=== PATIENT | female | born 1965 | race Caucasian/White ===

== ENCOUNTER 2016-12-08 13:19 | Emergency (ER) | payer OTHER ==
[~2016-12-08 13:19] MED LIST: LEVOTHYROXIN0.125 MG PO; LEVOTHYROXINE0.15 MG PO; NORCO; SYN125 PO; VAL10 PO
[2016-12-08 15:37] LABS: CALCIUM 8.9 mg/dL (8.5-10.1); CARBON DIOXIDE 24.7 mmol/L (21-32); CHLORIDE SERUM 104 mmol/L (98-107); CREATININE SERUM 0.9 mg/dL (0.6-1.0); GFR1 > 60 mL/min; GLUCOSE SERUM 99 mg/dL (74-106); MAGNESIUM 1.8 mg/dL (1.8-2.4); POTASSIUM SERUM 4.2 mmol/L (3.5-5.1); SODIUM SERUM 138 mmol/L (136-145)
[2016-12-08 16:07] VITALS: BP 122/58
== END 2016-12-08 16:07 | disposition home or self-care (01) ==
LOC: ED 13:19
PROVIDERS: Emergency Medicine
DX: G25.81 Restless legs syndrome (principal); M79.7 Fibromyalgia; K21.9 Gastro-esophageal reflux disease without esophagitis; E03.9 Hypothyroidism, unspecified; E78.5 Hyperlipidemia, unspecified; F41.9 Anxiety disorder, unspecified; Z79.899 Other long term (current) drug therapy; Z88.2 Allergy status to sulfonamides

== ENCOUNTER 2016-12-08 20:07 | Emergency (ER) | payer OTHER ==
[2016-12-08 21:12] VITALS: BP 135/91
== END 2016-12-08 21:55 | disposition home or self-care (01) ==
LOC: ED 20:07
DX: G25.81 Restless legs syndrome (principal); G89.4 Chronic pain syndrome; Z79.899 Other long term (current) drug therapy; Z88.2 Allergy status to sulfonamides; Z88.8 Allergy status to other drugs, medicaments and biological substances
CPT/HCPCS: J1200; J1885; Q0162

== ENCOUNTER 2017-05-06 16:06 | Emergency (ER) | payer OTHER ==
[2017-05-06 17:23] LABS: BASOPHIL % 0.7 % (0-2); PLATELET COUNT 233 x10^3mcL (130-400); RED CELL DISTRIBUTION WIDTH 12.8 % (11.5-14.5)
[2017-05-06 17:28] LABS: CALCIUM 9.4 mg/dL (8.5-10.1); CARBON DIOXIDE 29.1 mmol/L (21-32); CREATININE SERUM 1.1 mg/dL (0.6-1.0)
[2017-05-06 17:32] LABS: ALBUMIN 4.2 g/dL (3.4-5.0); BILIRUBIN TOTAL 1.4 mg/dL (0.20-1.00)
[2017-05-06 19:43] VITALS: BP 111/78
== END 2017-05-06 19:43 | disposition home or self-care (01) ==
LOC: ED 16:06
PROVIDERS: Emergency Medicine
DX: E86.0 Dehydration (principal); R07.89 Other chest pain; R06.02 Shortness of breath; J44.9 Chronic obstructive pulmonary disease, unspecified; M54.30 Sciatica, unspecified side; E03.9 Hypothyroidism, unspecified; F32.9 Major depressive disorder, single episode, unspecified; Z88.2 Allergy status to sulfonamides; Z88.8 Allergy status to other drugs, medicaments and biological substances
CPT/HCPCS: 83880; J2405; J3490; J7030

== ENCOUNTER 2017-10-18 03:37 | Emergency (ER) | payer OTHER ==
[2017-10-18 04:45] LABS: BASOPHIL % 0.5 % (0-2); PLATELET COUNT 183 x10^3mcL (130-400); RED CELL DISTRIBUTION WIDTH 13.1 % (11.5-14.5)
[2017-10-18 04:52] LABS: CALCIUM 9.4 mg/dL (8.5-10.1); CARBON DIOXIDE 30.6 mmol/L (21-32); CHLORIDE SERUM 94 mmol/L (98-107); CREATININE SERUM 1.3 mg/dL (0.6-1.0); GFR1 46 mL/min; GLUCOSE SERUM 115 mg/dL (74-106); POTASSIUM SERUM 3.9 mmol/L (3.5-5.1); SODIUM SERUM 133 mmol/L (136-145)
[2017-10-18 05:08] LABS: ALBUMIN 3.9 g/dL (3.4-5.0); ALKALINE PHOSPHATASE 82 U/L (46-116); ALT/SGPT 46 U/L (14-59); AST/SGOT 62 U/L (15-37); BILIRUBIN TOTAL 1.71 mg/dL (0.20-1.00); LIPASE 268 IU/L (73-393)
[2017-10-18 05:10] LABS: TOTAL PROTEIN, SERUM 8.7 g/dL (6.4-8.2)
[2017-10-18 07:50] VITALS: BP 122/78
== END 2017-10-18 07:51 | disposition home or self-care (01) ==
LOC: ED 03:37
PROVIDERS: Emergency Medicine
DX: R25.2 Cramp and spasm (principal); J44.9 Chronic obstructive pulmonary disease, unspecified; E78.00 Pure hypercholesterolemia, unspecified; Z88.2 Allergy status to sulfonamides; Z88.8 Allergy status to other drugs, medicaments and biological substances
CPT/HCPCS: 83880; G0480; J2270; J3010

== ENCOUNTER 2017-10-18 19:27 | Emergency (ER) | payer OTHER ==
[~2017-10-18] VITALS: Ht 160 cm; Wt 63.5 kg
[2017-10-18 19:33] VITALS: BP 147/90
== END 2017-10-18 20:49 | disposition home or self-care (01) ==
LOC: ED 19:27
DX: G89.29 Other chronic pain (principal); M54.9 Dorsalgia, unspecified
CPT/HCPCS: J1885

== ENCOUNTER 2017-11-19 12:16 | Inpatient (IN) | payer OTHER ==
[~2017-11-19] VITALS: Ht 160 cm; Wt 64.1 kg
[2017-11-19 12:40] LABS: PLATELET COUNT 229 x10^3mcL (130-400); RED CELL DISTRIBUTION WIDTH 12.9 % (11.5-14.5)
[2017-11-19 12:54] LABS: CALCIUM 9.8 mg/dL (8.5-10.1); CARBON DIOXIDE 30.8 mmol/L (21-32); CREATININE SERUM 1.6 mg/dL (0.6-1.0)
[2017-11-19 13:06] LABS: ALBUMIN 4.5 g/dL (3.4-5.0); BILIRUBIN TOTAL 1.09 mg/dL (0.20-1.00)
[2017-11-19 13:11] LABS: TOTAL PROTEIN, SERUM 9.4 g/dL (6.4-8.2)
[2017-11-19 13:12] LABS: T4(THYROXINE) 1.1 ug/dL (4.7-13.3)
[2017-11-19 13:28] LABS: AMPHETAMINE QUAL UR NONE DETECTED (NEG <=1000)
[2017-11-19 14:37] LABS: UA SPECIFIC GRAVITY 1.025 (1.005-1.035); microscopic required? YES; urine erythrocyte NEGATIVE (NEGATIVE)
[2017-11-19 16:33] LABS: T3 TOTAL 0.41 ng/mL
[2017-11-19 16:44] VITALS: BP 104/61
[2017-11-19 16:48] LABS: CHOLESTEROL/HDL RATIO 6.3; MAGNESIUM 1.7 mg/dL (1.8-2.4); PHOSPHOROUS 2.6 mg/dL (2.5-4.9)
[2017-11-19 16:58] LABS: FREE T4 0.23 ng/dL (0.76-1.46)
[2017-11-19 17:04] LABS: FREE THYROXINE INDEX 0.5 ug/dL (1.4-4.5); T4(THYROXINE) 1.9 ug/dL (4.7-13.3)
[2017-11-19] MEDS ORDERED: NOR10T PO (17:33)
[2017-11-19] MEDS ORDERED: SYNTHROID0.112 MG PO (17:35)
[2017-11-19 20:55] VITALS: BP 104/60
[2017-11-20 04:51] VITALS: BP 140/53
[2017-11-20 05:54] VITALS: BP 92/53
[2017-11-20 06:41] LABS: BASOPHIL % 0.5 % (0-2); PLATELET COUNT 163 x10^3mcL (130-400); RED CELL DISTRIBUTION WIDTH 13.1 % (11.5-14.5)
[2017-11-20 06:43] LABS: CALCIUM 7.9 mg/dL (8.5-10.1); CARBON DIOXIDE 26.1 mmol/L (21-32); CREATININE SERUM 1.4 mg/dL (0.6-1.0); MAGNESIUM 2.2 mg/dL (1.8-2.4); POTASSIUM SERUM 5.5 mmol/L (3.5-5.1)
[2017-11-20 09:06] VITALS: BP 83/47
[2017-11-20 13:47] VITALS: BP 85/46
[2017-11-20 17:17] VITALS: BP 90/50
[2017-11-20 18:42] LABS: CALCIUM 7.6 mg/dL (8.5-10.1); CARBON DIOXIDE 25.2 mmol/L (21-32); CREATININE SERUM 1.4 mg/dL (0.6-1.0); POTASSIUM SERUM 4.4 mmol/L (3.5-5.1)
[2017-11-20 20:35] VITALS: BP 95/60
[2017-11-21 05:06] VITALS: BP 94/52
[2017-11-21 06:08] LABS: BASOPHIL % 0.8 % (0-2); PLATELET COUNT 149 x10^3mcL (130-400); RED CELL DISTRIBUTION WIDTH 13.1 % (11.5-14.5)
[2017-11-21 06:34] LABS: CALCIUM 7.9 mg/dL (8.5-10.1); CARBON DIOXIDE 25.4 mmol/L (21-32); CREATININE SERUM 1.2 mg/dL (0.6-1.0); POTASSIUM SERUM 4.4 mmol/L (3.5-5.1)
[2017-11-21 09:04] VITALS: Ht 160 cm; Wt 64.1 kg
[2017-11-21 09:39] VITALS: BP 93/48
[2017-11-21] MEDS ORDERED: MAC100 PO (10:05)
[2017-11-21] MEDS ORDERED: GOOD SENSE ASPI81 M3 PO (10:05)
[2017-11-21] MEDS ORDERED: BD LACTINEX1.4 MG PO (10:05)
[2017-11-21] MEDS ORDERED: COLACE100 MG PO (10:21)
[2017-11-21 13:34] VITALS: BP 93/48
== END 2017-11-21 15:45 | disposition home or self-care (01) | DRG 463 ==
LOC: ED 12:16 → DU 15:51 → MU 11-20 22:39
PROVIDERS: Emergency Medicine; Family Medicine
DX: N39.0 Urinary tract infection, site not specified (principal); N17.0 Acute kidney failure with tubular necrosis; E87.1 Hypo-osmolality and hyponatremia; F32.9 Major depressive disorder, single episode, unspecified; J44.9 Chronic obstructive pulmonary disease, unspecified; F41.9 Anxiety disorder, unspecified; E03.9 Hypothyroidism, unspecified; E78.5 Hyperlipidemia, unspecified; M54.32 Sciatica, left side; M54.31 Sciatica, right side; K80.20 Calculus of gallbladder without cholecystitis without obstruction; Z88.8 Allergy status to other drugs, medicaments and biological substances; Z88.2 Allergy status to sulfonamides
CPT/HCPCS: 82962; 83880; 84439; 97110-GP; 97116-GP; 97530-GP; J0696; J2405; J2765; J3475; J7030; Q0092

== ENCOUNTER 2017-12-12 10:01 | Inpatient (IN) | payer OTHER ==
[~2017-12-12] VITALS: Ht 160 cm; Wt 64.6 kg
[~2017-12-12 10:01] MED LIST changes: +BD LACTINEX1.4 MG PO; +COLACE100 MG PO; +GOOD SENSE ASPI81 M3 PO; +MAC100 PO; +NOR10T PO; +SYNTHROID0.112 MG PO
[2017-12-12 10:10] VITALS: Ht 160 cm; Wt 64.6 kg
[2017-12-12 10:48] LABS: BASOPHIL % 1.4 % (0-2); PLATELET COUNT 234 x10^3mcL (130-400); RED CELL DISTRIBUTION WIDTH 12.8 % (11.5-14.5)
[2017-12-12 11:13] LABS: ALBUMIN 4.2 g/dL (3.4-5.0); BILIRUBIN TOTAL 0.91 mg/dL (0.20-1.00); CALCIUM 10.2 mg/dL (8.5-10.1); CARBON DIOXIDE 27.9 mmol/L (21-32); CREATININE SERUM 1.3 mg/dL (0.6-1.0)
[2017-12-12 11:21] LABS: microscopic required? YES; urine erythrocyte NEGATIVE (NEGATIVE)
[2017-12-12 11:59] LABS: TOTAL PROTEIN, SERUM 9.3 g/dL (6.4-8.2)
[2017-12-12 12:00] LABS: POTASSIUM SERUM 6.2 mmol/L (3.5-5.1)
[2017-12-12 13:46] VITALS: BP 96/74
[2017-12-12 15:33] LABS: AMPHETAMINE QUAL UR NONE DETECTED (NEG <=1000)
[2017-12-12 15:57] LABS: CALCIUM 8.3 mg/dL (8.5-10.1); CARBON DIOXIDE 26.2 mmol/L (21-32); CREATININE SERUM 1.2 mg/dL (0.6-1.0)
[2017-12-12 16:11] LABS: POTASSIUM SERUM 6.2 mmol/L (3.5-5.1)
[2017-12-12 16:19] LABS: MAGNESIUM 1.9 mg/dL (1.8-2.4); PHOSPHOROUS 3.6 mg/dL (2.5-4.9)
[2017-12-12 16:20] LABS: CHOLESTEROL/HDL RATIO 4.8
[2017-12-12 16:52] LABS: T3 TOTAL 1.32 ng/mL
[2017-12-12 16:57] LABS: FREE T4 1.22 ng/dL (0.76-1.46); FREE THYROXINE INDEX 3.5 ug/dL (1.4-4.5); T4(THYROXINE) 10.8 ug/dL (4.7-13.3)
[2017-12-12 18:00] VITALS: BP 102/69
[2017-12-12 21:44] LABS: CALCIUM 8.3 mg/dL (8.5-10.1); CARBON DIOXIDE 23.6 mmol/L (21-32); CREATININE SERUM 1.5 mg/dL (0.6-1.0); POTASSIUM SERUM 4.7 mmol/L (3.5-5.1)
[2017-12-12 21:48] VITALS: BP 106/56
[2017-12-13 05:07] VITALS: BP 112/70
[2017-12-13 07:58] LABS: CALCIUM 7.5 mg/dL (8.5-10.1); CARBON DIOXIDE 25.1 mmol/L (21-32); CREATININE SERUM 1.4 mg/dL (0.6-1.0); POTASSIUM SERUM 3.8 mmol/L (3.5-5.1)
[2017-12-13 08:07] LABS: BASOPHIL % 0.5 % (0-2); PLATELET COUNT 169 x10^3mcL (130-400)
[2017-12-13 09:58] VITALS: BP 106/63
[2017-12-13 13:19] VITALS: BP 153/63
[2017-12-13 18:00] VITALS: BP 112/62
[2017-12-13 18:58] LABS: CALCIUM 7.5 mg/dL (8.5-10.1); CARBON DIOXIDE 26.5 mmol/L (21-32); CREATININE SERUM 1.5 mg/dL (0.6-1.0); POTASSIUM SERUM 3.6 mmol/L (3.5-5.1)
[2017-12-13 20:58] VITALS: BP 97/44
[2017-12-13 21:55] VITALS: BP 115/65
[2017-12-14 04:56] VITALS: BP 93/43
[2017-12-14 07:29] LABS: BASOPHIL % 0.7 % (0-2); PLATELET COUNT 148 x10^3mcL (130-400); RED CELL DISTRIBUTION WIDTH 12.9 % (11.5-14.5)
[2017-12-14 07:59] LABS: CALCIUM 7.2 mg/dL (8.5-10.1); CARBON DIOXIDE 23.7 mmol/L (21-32); CREATININE SERUM 1.3 mg/dL (0.6-1.0); MAGNESIUM 1.7 mg/dL (1.8-2.4); PHOSPHOROUS 2.1 mg/dL (2.5-4.9); POTASSIUM SERUM 4.2 mmol/L (3.5-5.1)
[2017-12-14 10:29] VITALS: BP 91/55
[2017-12-14 12:18] VITALS: BP 87/45
[2017-12-14] MEDS ORDERED: LEVAQUIN750 MG PO (15:48)
[2017-12-14] MEDS ORDERED: REGLAN10 M1 PO (15:50)
[2017-12-14] MEDS ORDERED: LIPI10 PO (15:51)
[2017-12-14 16:18] VITALS: BP 91/42
== END 2017-12-14 17:00 | disposition home or self-care (01) | DRG 463 ==
LOC: ED 10:01 → DU 12:28
PROVIDERS: Emergency Medicine; Family Medicine
DX: N39.0 Urinary tract infection, site not specified (principal); N17.0 Acute kidney failure with tubular necrosis; E87.1 Hypo-osmolality and hyponatremia; E87.5 Hyperkalemia; E83.51 Hypocalcemia; E83.39 Other disorders of phosphorus metabolism; E83.42 Hypomagnesemia; E03.9 Hypothyroidism, unspecified; E78.5 Hyperlipidemia, unspecified; M54.32 Sciatica, left side; M54.31 Sciatica, right side; F41.9 Anxiety disorder, unspecified; D64.9 Anemia, unspecified; E66.3 Overweight; Z68.25 Body mass index [BMI] 25.0-25.9, adult; Z79.82 Long term (current) use of aspirin
CPT/HCPCS: 83880; 84439; 87491; 87591; J0696; J1720; J2405; J2550; J2765; J3490; J7030; J8597; Q0162

== ENCOUNTER 2018-01-13 03:11 | Emergency (ER) | payer OTHER ==
[~2018-01-13] VITALS: Ht 160 cm; Wt 63.5 kg
[~2018-01-13 03:11] MED LIST changes: +LEVAQUIN750 MG PO; +LIPI10 PO; +REGLAN10 M1 PO
[2018-01-13 03:20] VITALS: Ht 160 cm; Wt 63.5 kg
[2018-01-13 05:04] VITALS: BP 120/79
== END 2018-01-13 05:04 | disposition home or self-care (01) ==
LOC: ED 03:11
DX: N12 Tubulo-interstitial nephritis, not specified as acute or chronic (principal); Z88.2 Allergy status to sulfonamides; Z88.8 Allergy status to other drugs, medicaments and biological substances
CPT/HCPCS: J0696; J1885

== ENCOUNTER 2018-01-26 10:30 | Inpatient (IN) | payer OTHER ==
[~2018-01-26] VITALS: Ht 160 cm; Wt 62.2 kg
[2018-01-26 10:42] VITALS: Ht 160 cm; Wt 62.2 kg
[2018-01-26 11:25] LABS: BASOPHIL % 0.8 % (0-2); PLATELET COUNT 323 x10^3mcL (130-400); RED CELL DISTRIBUTION WIDTH 12.5 % (11.5-14.5)
[2018-01-26 11:32] LABS: CARBON DIOXIDE 25.1 mmol/L (21-32); CREATININE SERUM 2.4 mg/dL (0.6-1.0); POTASSIUM SERUM 4.6 mmol/L (3.5-5.1)
[2018-01-26 11:36] LABS: ALBUMIN 3.5 g/dL (3.4-5.0); BILIRUBIN TOTAL 0.47 mg/dL (0.20-1.00)
[2018-01-26 11:37] LABS: TOTAL PROTEIN, SERUM 8.4 g/dL (6.4-8.2)
[2018-01-26 11:41] LABS: UA SPECIFIC GRAVITY 1.025 (1.005-1.035); microscopic required? YES; urine erythrocyte 1+ (NEGATIVE)
[2018-01-26 13:15] LABS: MAGNESIUM 1.7 mg/dL (1.8-2.4); PHOSPHOROUS 5.7 mg/dL (2.5-4.9)
[2018-01-26 13:16] LABS: AMPHETAMINE QUAL UR NONE DETECTED (See below)
[2018-01-26 13:16] LABS: T3 TOTAL 0.73 ng/mL
[2018-01-26 13:19] LABS: CHOLESTEROL/HDL RATIO 10.6
[2018-01-26 14:01] LABS: FREE T4 0.51 ng/dL (0.76-1.46); FREE THYROXINE INDEX 1.4 ug/dL (1.4-4.5); T4(THYROXINE) 5.1 ug/dL (4.7-13.3)
[2018-01-26 14:27] VITALS: BP 89/53
[2018-01-26 16:02] VITALS: BP 94/58
[2018-01-26 17:30] VITALS: BP 94/58
[2018-01-26 17:56] LABS: CALCIUM 8.1 mg/dL (8.5-10.1); CARBON DIOXIDE 24.2 mmol/L (21-32); CREATININE SERUM 1.6 mg/dL (0.6-1.0)
[2018-01-26 18:07] LABS: POTASSIUM SERUM 5.7 mmol/L (3.5-5.1)
[2018-01-26 18:51] LABS: CALCIUM 8.1 mg/dL (8.5-10.1); CARBON DIOXIDE 24.7 mmol/L (21-32); CREATININE SERUM 1.6 mg/dL (0.6-1.0); POTASSIUM SERUM 5.3 mmol/L (3.5-5.1)
[2018-01-26 22:01] VITALS: BP 91/45
[2018-01-27 06:02] VITALS: BP 99/55
[2018-01-27 06:39] LABS: PLATELET COUNT 262 x10^3mcL (130-400); RED CELL DISTRIBUTION WIDTH 12.9 % (11.5-14.5)
[2018-01-27 06:50] LABS: CALCIUM 7.9 mg/dL (8.5-10.1); CREATININE SERUM 1.4 mg/dL (0.6-1.0); PHOSPHOROUS 3.1 mg/dL (2.5-4.9)
[2018-01-27 06:57] LABS: POTASSIUM SERUM 5.6 mmol/L (3.5-5.1)
[2018-01-27 12:58] VITALS: BP 89/52
[2018-01-27 15:09] LABS: CALCIUM 7.8 mg/dL (8.5-10.1); CARBON DIOXIDE 24.5 mmol/L (21-32); CREATININE SERUM 1.4 mg/dL (0.6-1.0); POTASSIUM SERUM 4.8 mmol/L (3.5-5.1)
[2018-01-27 16:32] VITALS: BP 90/37
[2018-01-27 21:23] VITALS: BP 115/57
[2018-01-28 05:57] VITALS: BP 94/51
[2018-01-28 06:51] LABS: CALCIUM 8.4 mg/dL (8.5-10.1); CARBON DIOXIDE 24.9 mmol/L (21-32); CREATININE SERUM 1.2 mg/dL (0.6-1.0); MAGNESIUM 1.4 mg/dL (1.8-2.4); PHOSPHOROUS 2.2 mg/dL (2.5-4.9); POTASSIUM SERUM 5.1 mmol/L (3.5-5.1)
[2018-01-28 07:13] LABS: BASOPHIL % 0.9 % (0-2); PLATELET COUNT 200 x10^3mcL (130-400); RED CELL DISTRIBUTION WIDTH 12.6 % (11.5-14.5)
[2018-01-28] MEDS ORDERED: LEVOFLOXACIN500 M1 PO (08:50)
[2018-01-28] MEDS ORDERED: LAC PO (08:50)
[2018-01-28 09:11] VITALS: BP 103/50
[2018-01-28 12:52] VITALS: BP 109/63
[2018-01-28 14:52] VITALS: BP 109/63
== END 2018-01-28 15:29 | disposition home or self-care (01) | DRG 720 ==
LOC: ED 10:30 → DU 11:23
PROVIDERS: Emergency Medicine; Family Medicine; Family Medicine Sports Medicine
DX: A41.9 Sepsis, unspecified organism (principal); N17.0 Acute kidney failure with tubular necrosis; R65.21 Severe sepsis with septic shock; F32.9 Major depressive disorder, single episode, unspecified; E03.9 Hypothyroidism, unspecified; E78.00 Pure hypercholesterolemia, unspecified; G89.29 Other chronic pain; N39.0 Urinary tract infection, site not specified; E87.1 Hypo-osmolality and hyponatremia; E87.5 Hyperkalemia; E78.5 Hyperlipidemia, unspecified; E83.51 Hypocalcemia; R31.9 Hematuria, unspecified; F41.1 Generalized anxiety disorder; E83.42 Hypomagnesemia; M54.40 Lumbago with sciatica, unspecified side; E87.8 Other disorders of electrolyte and fluid balance, not elsewhere classified; Z53.29 Procedure and treatment not carried out because of patient's decision for other reasons; Z88.8 Allergy status to other drugs, medicaments and biological substances; Z88.2 Allergy status to sulfonamides; Z79.899 Other long term (current) drug therapy; Z91.14 Patient's other noncompliance with medication regimen; Z98.891 History of uterine scar from previous surgery
CPT/HCPCS: 76770; 83880; 84439; C9113; J0696; J2405; J3475; J3490; J7030; Q0092

== ENCOUNTER 2018-03-04 10:07 | Inpatient (IN) | payer OTHER ==
[~2018-03-04] VITALS: Ht 160 cm; Wt 60.1 kg
[~2018-03-04 10:07] MED LIST changes: +LAC PO; +LEVOFLOXACIN500 M1 PO
[2018-03-04 11:12] LABS: BASOPHIL % 1.5 % (0-2); PLATELET COUNT 301 x10^3mcL (130-400); RED CELL DISTRIBUTION WIDTH 13.5 % (11.5-14.5)
[2018-03-04 11:18] LABS: CALCIUM 10.6 mg/dL (8.5-10.1); CREATININE SERUM 3.6 mg/dL (0.6-1.0); POTASSIUM SERUM 4.5 mmol/L (3.5-5.1)
[2018-03-04 11:22] LABS: ALBUMIN 4.1 g/dL (3.4-5.0); BILIRUBIN TOTAL 0.89 mg/dL (0.20-1.00); TOTAL PROTEIN, SERUM 9.3 g/dL (6.4-8.2)
[2018-03-04 11:33] LABS: FREE T4 1.45 ng/dL (0.76-1.46); FREE THYROXINE INDEX 3.7 ug/dL (1.4-4.5)
[2018-03-04 11:34] LABS: T3 TOTAL 1.18 ng/mL
[2018-03-04 13:55] VITALS: BP 116/55
[2018-03-04 14:05] VITALS: Ht 160 cm; Wt 60.1 kg
[2018-03-04 14:43] LABS: MAGNESIUM 1.8 mg/dL (1.8-2.4); PHOSPHOROUS 6.3 mg/dL (2.5-4.9)
[2018-03-04 14:45] LABS: CHOLESTEROL/HDL RATIO 5.2
[2018-03-04 15:57] VITALS: BP 112/68
[2018-03-04 19:26] LABS: CALCIUM 8.4 mg/dL (8.5-10.1); CARBON DIOXIDE 24.3 mmol/L (21-32); POTASSIUM SERUM 4.4 mmol/L (3.5-5.1)
[2018-03-04 22:31] VITALS: BP 83/43
[2018-03-05 05:34] VITALS: BP 106/45
[2018-03-05 07:13] LABS: microscopic required? NO
[2018-03-05 08:01] LABS: BASOPHIL % 0.7 % (0-2); PLATELET COUNT 210 x10^3mcL (130-400); RED CELL DISTRIBUTION WIDTH 13.6 % (11.5-14.5)
[2018-03-05 08:13] LABS: CALCIUM 8.4 mg/dL (8.5-10.1); CARBON DIOXIDE 20.4 mmol/L (21-32); CREATININE SERUM 2.2 mg/dL (0.6-1.0); MAGNESIUM 1.5 mg/dL (1.8-2.4); POTASSIUM SERUM 5.2 mmol/L (3.5-5.1)
[2018-03-05 08:41] VITALS: BP 99/46
[2018-03-05 09:15] LABS: urine erythrocyte NEGATIVE (NEGATIVE)
[2018-03-05 09:39] LABS: AMPHETAMINE QUAL UR NONE DETECTED (See below)
[2018-03-05 12:50] VITALS: BP 88/49
[2018-03-05 15:52] VITALS: BP 89/42
[2018-03-05 17:08] VITALS: BP 118/58; BP 98/45
[2018-03-05 21:17] VITALS: BP 96/49
[2018-03-06 05:50] VITALS: BP 93/49
[2018-03-06 07:47] LABS: BASOPHIL % 0.7 % (0-2); PLATELET COUNT 181 x10^3mcL (130-400); RED CELL DISTRIBUTION WIDTH 13.5 % (11.5-14.5)
[2018-03-06 08:06] LABS: BILIRUBIN TOTAL 0.37 mg/dL (0.20-1.00); CALCIUM 8.4 mg/dL (8.5-10.1); CARBON DIOXIDE 22.1 mmol/L (21-32); CREATININE SERUM 1.4 mg/dL (0.6-1.0); MAGNESIUM 1.3 mg/dL (1.8-2.4); POTASSIUM SERUM 5.1 mmol/L (3.5-5.1); TOTAL PROTEIN, SERUM 6.2 g/dL (6.4-8.2)
[2018-03-06 08:30] LABS: ALBUMIN 2.6 g/dL (3.4-5.0)
[2018-03-06 11:07] VITALS: BP 100/42
[2018-03-06 14:58] VITALS: BP 108/42
[2018-03-06 18:47] VITALS: BP 93/33
[2018-03-06 21:06] VITALS: BP 94/42
[2018-03-07 05:13] VITALS: BP 100/48
[2018-03-07 07:22] LABS: BASOPHIL % 0.6 % (0-2); PLATELET COUNT 172 x10^3mcL (130-400); RED CELL DISTRIBUTION WIDTH 13.6 % (11.5-14.5)
[2018-03-07 07:23] LABS: CALCIUM 8.3 mg/dL (8.5-10.1); CARBON DIOXIDE 20.8 mmol/L (21-32); CREATININE SERUM 1.2 mg/dL (0.6-1.0); PHOSPHOROUS 2.7 mg/dL (2.5-4.9); POTASSIUM SERUM 4.9 mmol/L (3.5-5.1)
[2018-03-07 07:56] VITALS: BP 102/47
[2018-03-07 13:18] VITALS: BP 108/60
[2018-03-07] MEDS ORDERED: LEVAQUIN750 MG PO (15:30)
[2018-03-07] MEDS ORDERED: ZOF4 PO (15:31)
[2018-03-07 16:19] VITALS: BP 108/60
== END 2018-03-07 19:19 | disposition home or self-care (01) | DRG 720 ==
LOC: ED 10:07 → DU 11:44
PROVIDERS: Emergency Medicine; Internal Medicine
DX: A41.9 Sepsis, unspecified organism (principal); N17.0 Acute kidney failure with tubular necrosis; E87.1 Hypo-osmolality and hyponatremia; K85.90 Acute pancreatitis without necrosis or infection, unspecified; G90.9 Disorder of the autonomic nervous system, unspecified; E86.0 Dehydration; K29.70 Gastritis, unspecified, without bleeding; E03.9 Hypothyroidism, unspecified; E78.5 Hyperlipidemia, unspecified; F32.9 Major depressive disorder, single episode, unspecified; G89.29 Other chronic pain; M25.552 Pain in left hip; M25.551 Pain in right hip; F41.9 Anxiety disorder, unspecified; M54.32 Sciatica, left side; M54.31 Sciatica, right side; N12 Tubulo-interstitial nephritis, not specified as acute or chronic; K80.20 Calculus of gallbladder without cholecystitis without obstruction; Z88.2 Allergy status to sulfonamides; Z79.899 Other long term (current) drug therapy; Z87.891 Personal history of nicotine dependence; Z88.8 Allergy status to other drugs, medicaments and biological substances
CPT/HCPCS: 83880; 84439; 94150; C9113; J1956; J2405; J2765; J7030; J7040; J7620; Q0092

== ENCOUNTER 2018-06-21 10:36 | Inpatient (IN) | payer OTHER ==
[~2018-06-21] VITALS: Ht 160 cm; Wt 71.0 kg
[~2018-06-21 10:36] MED LIST changes: +ZOF4 PO
[2018-06-21 10:42] VITALS: Ht 160 cm; Wt 71.0 kg
[2018-06-21 11:36] LABS: BASOPHIL % 0.7 % (0-2); PLATELET COUNT 247 x10^3mcL (130-400)
[2018-06-21 11:48] LABS: UA SPECIFIC GRAVITY 1.025 (1.005-1.035); microscopic required? YES; urine erythrocyte NEGATIVE (NEGATIVE)
[2018-06-21 12:05] LABS: FREE T4 0.39 ng/dL (0.76-1.46); FREE THYROXINE INDEX 0.6 ug/dL (1.4-4.5); T4(THYROXINE) 2.7 ug/dL (4.7-13.3)
[2018-06-21 12:05] LABS: AMPHETAMINE QUAL UR NONE DETECTED (See below)
[2018-06-21 12:06] LABS: ALBUMIN 4.5 g/dL (3.4-5.0); BILIRUBIN TOTAL 1.26 mg/dL (0.20-1.00); CALCIUM 9.3 mg/dL (8.5-10.1); CARBON DIOXIDE 24.6 mmol/L (21-32); CREATININE SERUM 1.7 mg/dL (0.6-1.0); POTASSIUM SERUM 4.2 mmol/L (3.5-5.1)
[2018-06-21 12:08] LABS: TOTAL PROTEIN, SERUM 10.1 g/dL (6.4-8.2)
[2018-06-21] MEDS ORDERED: ASPIRIN81 MG PO (12:14)
[2018-06-21 12:23] LABS: T3 TOTAL 0.4 ng/mL
[2018-06-21 15:07] VITALS: BP 109/69
[2018-06-21 17:39] VITALS: BP 114/60
[2018-06-21 19:36] LABS: CARBON DIOXIDE 23.9 mmol/L (21-32); CREATININE SERUM 1.7 mg/dL (0.6-1.0); POTASSIUM SERUM 4.2 mmol/L (3.5-5.1)
[2018-06-21 20:47] VITALS: BP 104/64
[2018-06-21 22:05] LABS: CALCIUM 9.1 mg/dL (8.5-10.1); CARBON DIOXIDE 21.8 mmol/L (21-32); CREATININE SERUM 1.8 mg/dL (0.6-1.0); POTASSIUM SERUM 4.3 mmol/L (3.5-5.1)
[2018-06-22] VITALS (8 sets, daily range): BP systolic 82–102; BP diastolic 51–63
[2018-06-22 06:12] LABS: PLATELET COUNT 198 x10^3mcL (130-400)
[2018-06-22 07:00] LABS: CALCIUM 8.6 mg/dL (8.5-10.1); CARBON DIOXIDE 23.3 mmol/L (21-32); CREATININE SERUM 1.8 mg/dL (0.6-1.0); POTASSIUM SERUM 4.5 mmol/L (3.5-5.1)
[2018-06-22 08:11] LABS: RED CELL DISTRIBUTION WIDTH 14.6 % (11.5-14.5)
[2018-06-23 05:50] VITALS: BP 93/57
[2018-06-23 06:30] LABS: BASOPHIL % 1.1 % (0-2); PLATELET COUNT 194 x10^3mcL (130-400)
[2018-06-23 06:34] LABS: RED CELL DISTRIBUTION WIDTH 15.1 % (11.5-14.5)
[2018-06-23 06:44] LABS: CREATININE SERUM 1.7 mg/dL (0.6-1.0); POTASSIUM SERUM 5.1 mmol/L (3.5-5.1)
[2018-06-23 09:59] VITALS: BP 92/54
[2018-06-23 12:45] VITALS: BP 94/59
[2018-06-23 17:09] VITALS: BP 109/59
[2018-06-23 21:24] VITALS: BP 104/58
[2018-06-24 05:36] VITALS: BP 97/60
[2018-06-24 10:32] VITALS: BP 101/55
[2018-06-24 14:11] VITALS: BP 101/55
[2018-06-24 14:29] VITALS: BP 91/52
[2018-06-25 10:32] LABS: CK-BB 0 % (0); CK-MB 0 % (0-3); CK-MM 100 % (97-100); MACRO TYPE 1 0 % (Not Observed); MACRO TYPE 2 0 % (Not Observed)
== END 2018-06-24 15:27 | disposition home health service (06) | DRG 469 ==
LOC: ED 10:36 → DU 12:19
PROVIDERS: Emergency Medicine; Internal Medicine; Internal Medicine Nephrology
DX: N17.9 Acute kidney failure, unspecified (principal); M62.82 Rhabdomyolysis; I95.9 Hypotension, unspecified; E22.2 Syndrome of inappropriate secretion of antidiuretic hormone; D75.1 Secondary polycythemia; E86.0 Dehydration; K52.9 Noninfective gastroenteritis and colitis, unspecified; K80.80 Other cholelithiasis without obstruction; N39.0 Urinary tract infection, site not specified; E03.9 Hypothyroidism, unspecified; F41.8 Other specified anxiety disorders; F17.210 Nicotine dependence, cigarettes, uncomplicated; F32.9 Major depressive disorder, single episode, unspecified; G89.29 Other chronic pain; M25.552 Pain in left hip; M25.551 Pain in right hip; N18.9 Chronic kidney disease, unspecified; F41.9 Anxiety disorder, unspecified; Z88.2 Allergy status to sulfonamides; Z88.8 Allergy status to other drugs, medicaments and biological substances
CPT/HCPCS: 84439; 97110-GP; 97112-GP; 97116-GP; 97530-GP; J1956; J2270; J2405; J3490; J7030; J7040; Q0092

== ENCOUNTER 2018-06-30 14:49 | Inpatient (IN) | payer OTHER ==
[~2018-06-30] VITALS: Ht 160 cm; Wt 64.4 kg
[~2018-06-30 14:49] MED LIST changes: +ASPIRIN81 MG PO
[2018-06-30 14:55] VITALS: Ht 160 cm; Wt 64.4 kg
[2018-06-30 15:34] LABS: BASOPHIL % 0.7 % (0-2); PLATELET COUNT 254 x10^3mcL (130-400)
[2018-06-30 15:38] LABS: RED CELL DISTRIBUTION WIDTH 14.6 % (11.5-14.5)
[2018-06-30 15:55] LABS: UA SPECIFIC GRAVITY 1.025 (1.005-1.035); microscopic required? YES; urine erythrocyte 2+ (NEGATIVE)
[2018-06-30 16:04] LABS: ALBUMIN 4.8 g/dL (3.4-5.0); BILIRUBIN TOTAL 1.3 mg/dL (0.20-1.00); CALCIUM 9.6 mg/dL (8.5-10.1); CARBON DIOXIDE 25.3 mmol/L (21-32); CREATININE SERUM 1.7 mg/dL (0.6-1.0); POTASSIUM SERUM 4.9 mmol/L (3.5-5.1)
[2018-06-30 16:06] LABS: TOTAL PROTEIN, SERUM 9.9 g/dL (6.4-8.2)
[2018-06-30 16:12] LABS: AMPHETAMINE QUAL UR NONE DETECTED (See below)
[2018-06-30 18:34] VITALS: BP 128/69
[2018-06-30 20:23] VITALS: BP 104/63
[2018-07-01 00:39] LABS: CALCIUM 8.4 mg/dL (8.5-10.1); CREATININE SERUM 1.5 mg/dL (0.6-1.0); POTASSIUM SERUM 4.5 mmol/L (3.5-5.1)
[2018-07-01 05:44] VITALS: BP 105/64
[2018-07-01 06:05] LABS: BASOPHIL % 0.8 % (0-2); PLATELET COUNT 227 x10^3mcL (130-400)
[2018-07-01 06:45] LABS: CALCIUM 8.1 mg/dL (8.5-10.1); CARBON DIOXIDE 24.3 mmol/L (21-32); CREATININE SERUM 1.5 mg/dL (0.6-1.0); POTASSIUM SERUM 4.9 mmol/L (3.5-5.1)
[2018-07-01 09:01] LABS: RED CELL DISTRIBUTION WIDTH 14.7 % (11.5-14.5)
[2018-07-01 09:15] VITALS: BP 93/60
[2018-07-01 10:44] LABS: CALCIUM 9.3 mg/dL (8.5-10.1); CARBON DIOXIDE 25.7 mmol/L (21-32); CREATININE SERUM 1.5 mg/dL (0.6-1.0); POTASSIUM SERUM 4.7 mmol/L (3.5-5.1)
[2018-07-01 12:00] VITALS: BP 108/66
[2018-07-01 13:26] LABS: CALCIUM 8.9 mg/dL (8.5-10.1); CREATININE SERUM 1.5 mg/dL (0.6-1.0); POTASSIUM SERUM 4.9 mmol/L (3.5-5.1)
[2018-07-01 17:14] VITALS: BP 101/55
[2018-07-01 17:30] VITALS: BP 92/50
[2018-07-01 17:33] LABS: CALCIUM 8.6 mg/dL (8.5-10.1); CARBON DIOXIDE 25.6 mmol/L (21-32); CREATININE SERUM 1.7 mg/dL (0.6-1.0); POTASSIUM SERUM 5.3 mmol/L (3.5-5.1)
[2018-07-01 20:21] LABS: CALCIUM 9.3 mg/dL (8.5-10.1); CARBON DIOXIDE 25.7 mmol/L (21-32); CREATININE SERUM 1.8 mg/dL (0.6-1.0); POTASSIUM SERUM 5.3 mmol/L (3.5-5.1)
[2018-07-01 20:55] VITALS: BP 91/56
[2018-07-02 01:05] LABS: CALCIUM 8.6 mg/dL (8.5-10.1); CARBON DIOXIDE 24.6 mmol/L (21-32); CREATININE SERUM 1.8 mg/dL (0.6-1.0); POTASSIUM SERUM 4.9 mmol/L (3.5-5.1)
[2018-07-02 05:26] VITALS: BP 100/57
[2018-07-02 05:32] LABS: CALCIUM 8.5 mg/dL (8.5-10.1); CARBON DIOXIDE 25.8 mmol/L (21-32); CREATININE SERUM 1.7 mg/dL (0.6-1.0); POTASSIUM SERUM 5.1 mmol/L (3.5-5.1)
[2018-07-02 09:20] VITALS: BP 95/55
[2018-07-02 09:49] LABS: CALCIUM 9.4 mg/dL (8.5-10.1); CREATININE SERUM 1.8 mg/dL (0.6-1.0); POTASSIUM SERUM 4.7 mmol/L (3.5-5.1)
[2018-07-02 13:10] VITALS: BP 91/55
[2018-07-02 16:31] LABS: CALCIUM 8.7 mg/dL (8.5-10.1); CARBON DIOXIDE 24.9 mmol/L (21-32); CREATININE SERUM 1.8 mg/dL (0.6-1.0); POTASSIUM SERUM 4.7 mmol/L (3.5-5.1)
[2018-07-02 16:47] LABS: FREE T4 0.7 ng/dL (0.76-1.46)
[2018-07-02 17:00] VITALS: BP 84/54
[2018-07-02 20:53] VITALS: BP 90/52
[2018-07-02 22:04] LABS: CALCIUM 9.3 mg/dL (8.5-10.1); CARBON DIOXIDE 23.8 mmol/L (21-32); CREATININE SERUM 1.7 mg/dL (0.6-1.0); POTASSIUM SERUM 4.4 mmol/L (3.5-5.1)
[2018-07-03 05:56] VITALS: BP 102/53
[2018-07-03 06:33] LABS: CARBON DIOXIDE 26.7 mmol/L (21-32); CREATININE SERUM 1.7 mg/dL (0.6-1.0)
[2018-07-03 06:40] LABS: PLATELET COUNT 183 x10^3mcL (130-400); RED CELL DISTRIBUTION WIDTH 14.9 % (11.5-14.5)
[2018-07-03 09:15] VITALS: BP 85/59
[2018-07-03 14:11] VITALS: BP 98/52
[2018-07-03 14:17] LABS: CALCIUM 9.9 mg/dL (8.5-10.1); CARBON DIOXIDE 26.9 mmol/L (21-32); CREATININE SERUM 1.6 mg/dL (0.6-1.0); POTASSIUM SERUM 4.9 mmol/L (3.5-5.1)
[2018-07-03 17:30] VITALS: BP 91/54
[2018-07-03 20:09] VITALS: BP 98/52
[2018-07-03 21:40] LABS: CALCIUM 9.2 mg/dL (8.5-10.1); CARBON DIOXIDE 27.1 mmol/L (21-32); CREATININE SERUM 1.7 mg/dL (0.6-1.0); POTASSIUM SERUM 5.2 mmol/L (3.5-5.1)
[2018-07-04 03:03] LABS: BASOPHIL % 0.8 % (0-2); PLATELET COUNT 200 x10^3mcL (130-400)
[2018-07-04 03:06] LABS: RED CELL DISTRIBUTION WIDTH 15.1 % (11.5-14.5)
[2018-07-04 03:35] LABS: CALCIUM 8.9 mg/dL (8.5-10.1); CARBON DIOXIDE 29.3 mmol/L (21-32); CREATININE SERUM 1.7 mg/dL (0.6-1.0)
[2018-07-04 03:37] LABS: POTASSIUM SERUM 6.1 mmol/L (3.5-5.1)
[2018-07-04 04:51] VITALS: BP 99/56
[2018-07-04 06:52] LABS: CK-BB 0 % (0); CK-MB 0 % (0-3); CK-MM 100 % (97-100); MACRO TYPE 1 0 % (Not Observed); MACRO TYPE 2 0 % (Not Observed)
[2018-07-04 08:10] VITALS: BP 85/50
[2018-07-04 08:44] VITALS: BP 94/54
[2018-07-04 09:18] LABS: CALCIUM 9.2 mg/dL (8.5-10.1); CARBON DIOXIDE 29.2 mmol/L (21-32); CREATININE SERUM 1.7 mg/dL (0.6-1.0)
[2018-07-04 11:40] VITALS: BP 94/54
== END 2018-07-04 12:35 | disposition home health service (06) | DRG 469 ==
LOC: ED 14:49 → DU 17:38
PROVIDERS: Emergency Medicine; Internal Medicine
DX: N17.9 Acute kidney failure, unspecified (principal); M62.82 Rhabdomyolysis; E22.2 Syndrome of inappropriate secretion of antidiuretic hormone; F11.20 Opioid dependence, uncomplicated; N39.0 Urinary tract infection, site not specified; E03.9 Hypothyroidism, unspecified; M54.5 Low back pain; F41.9 Anxiety disorder, unspecified; F32.9 Major depressive disorder, single episode, unspecified; E78.00 Pure hypercholesterolemia, unspecified; G89.29 Other chronic pain; E78.5 Hyperlipidemia, unspecified; I12.9 Hypertensive chronic kidney disease with stage 1 through stage 4 chronic kidney disease, or unspecified chronic kidney disease; N18.9 Chronic kidney disease, unspecified; Z88.2 Allergy status to sulfonamides; Z88.8 Allergy status to other drugs, medicaments and biological substances
CPT/HCPCS: 82962; 84439; 87804; 97110-GP; 97116-GP; 97530-GP; J0610; J1956; J2405; J3490; J7030; J7070

== ENCOUNTER 2018-08-27 11:55 | Inpatient (IN) | payer OTHER ==
[~2018-08-27] VITALS: Ht 160 cm; Wt 68.0 kg
[2018-08-27 12:11] VITALS: Ht 160 cm; Wt 68.0 kg
[2018-08-27 12:46] LABS: BASOPHIL % 1.4 % (0-2); PLATELET COUNT 217 x10^3mcL (130-400); RED CELL DISTRIBUTION WIDTH 13.9 % (11.5-14.5)
[2018-08-27 13:06] LABS: CALCIUM 9.4 mg/dL (8.5-10.1); CARBON DIOXIDE 31.5 mmol/L (21-32); CHLORIDE SERUM 92 mmol/L (98-107); CREATININE SERUM 1.7 mg/dL (0.6-1.0); GFR1 34 mL/min; GLUCOSE SERUM 96 mg/dL (74-106); POTASSIUM SERUM 4.4 mmol/L (3.5-5.1); SODIUM SERUM 129 mmol/L (136-145)
[2018-08-27 13:16] LABS: ALBUMIN 4.1 g/dL (3.4-5.0); ALKALINE PHOSPHATASE 97 U/L (46-116); ALT/SGPT 47 U/L (14-59); AST/SGOT 99 U/L (15-37); BILIRUBIN TOTAL 0.57 mg/dL (0.20-1.00); FREE T4 0.15 ng/dL (0.76-1.46); LIPASE 390 IU/L (73-393); MAGNESIUM 1.6 mg/dL (1.8-2.4)
[2018-08-27 13:28] LABS: TOTAL PROTEIN, SERUM 9.3 g/dL (6.4-8.2)
[2018-08-27 14:48] LABS: PHOSPHOROUS 3.8 mg/dL (2.5-4.9)
[2018-08-27 14:55] LABS: CHOLESTEROL/HDL RATIO 6.8
[2018-08-27 15:14] VITALS: BP 104/62
[2018-08-27 20:45] VITALS: BP 90/53
[2018-08-27 23:32] LABS: microscopic required? YES; urine erythrocyte NEGATIVE (NEGATIVE)
[2018-08-27 23:58] LABS: AMPHETAMINE QUAL UR NONE DETECTED (See below)
[2018-08-28 05:33] VITALS: BP 95/53
[2018-08-28 07:20] LABS: PLATELET COUNT 187 x10^3mcL (130-400); RED CELL DISTRIBUTION WIDTH 13.6 % (11.5-14.5)
[2018-08-28 07:21] LABS: C REACTIVE PROTEIN 0.4 mg/dL (<=0.9); CALCIUM 8.2 mg/dL (8.5-10.1); CARBON DIOXIDE 27.9 mmol/L (21-32); CREATININE SERUM 1.6 mg/dL (0.6-1.0); MAGNESIUM 1.6 mg/dL (1.8-2.4); PHOSPHOROUS 3.7 mg/dL (2.5-4.9); POTASSIUM SERUM 4.3 mmol/L (3.5-5.1)
[2018-08-28 10:00] VITALS: BP 97/51
[2018-08-28 12:06] LABS: ERYTHROCYTE SED RATE 43 mm/hr (0-30)
[2018-08-28 13:07] VITALS: BP 89/53
[2018-08-28 16:30] VITALS: BP 94/52
[2018-08-28 17:34] LABS: BILIRUBIN TOTAL 0.2 mg/dL (0.20-1.00); CALCIUM 8.9 mg/dL (8.5-10.1); CARBON DIOXIDE 30.4 mmol/L (21-32); CREATININE SERUM 1.5 mg/dL (0.6-1.0); POTASSIUM SERUM 4.3 mmol/L (3.5-5.1); TOTAL PROTEIN, SERUM 7.1 g/dL (6.4-8.2)
[2018-08-28 17:35] LABS: ALBUMIN 3.1 g/dL (3.4-5.0)
[2018-08-28 21:58] VITALS: BP 91/56
[2018-08-29 05:50] VITALS: BP 90/52
[2018-08-29 06:51] LABS: CALCIUM 8.7 mg/dL (8.5-10.1); CARBON DIOXIDE 29.3 mmol/L (21-32); CREATININE SERUM 1.4 mg/dL (0.6-1.0); MAGNESIUM 1.6 mg/dL (1.8-2.4); PHOSPHOROUS 3.9 mg/dL (2.5-4.9); POTASSIUM SERUM 4.3 mmol/L (3.5-5.1)
[2018-08-29 07:08] LABS: BASOPHIL % 1.5 % (0-2); PLATELET COUNT 172 x10^3mcL (130-400); RED CELL DISTRIBUTION WIDTH 13.9 % (11.5-14.5)
[2018-08-29 08:07] VITALS: BP 95/54
[2018-08-29 13:44] VITALS: BP 85/50
[2018-08-29 15:08] VITALS: BP 89/53
[2018-08-29 16:45] VITALS: BP 92/51
[2018-08-29 20:51] VITALS: BP 91/52
[2018-08-30 05:41] VITALS: BP 102/55
[2018-08-30 06:12] LABS: CALCIUM 8.9 mg/dL (8.5-10.1); CARBON DIOXIDE 29.3 mmol/L (21-32); CREATININE SERUM 1.5 mg/dL (0.6-1.0); POTASSIUM SERUM 4.8 mmol/L (3.5-5.1)
[2018-08-30 08:46] LABS: BASOPHIL % 1.4 % (0-2); PLATELET COUNT 148 x10^3mcL (130-400)
[2018-08-30 09:39] VITALS: BP 85/47
[2018-08-30 12:44] VITALS: BP 98/58
[2018-08-30 16:21] VITALS: BP 104/44
[2018-08-30 20:57] VITALS: BP 81/36
[2018-08-30 21:39] VITALS: BP 81/53
[2018-08-31] VITALS (7 sets, daily range): BP systolic 74–89; BP diastolic 37–53
[2018-08-31 06:58] LABS: BASOPHIL % 0.6 % (0-2); RED CELL DISTRIBUTION WIDTH 13.9 % (11.5-14.5)
[2018-08-31 07:04] LABS: PLATELET COUNT 120 x10^3mcL (130-400)
[2018-08-31 07:34] LABS: CARBON DIOXIDE 24.5 mmol/L (21-32); CREATININE SERUM 1.5 mg/dL (0.6-1.0); MAGNESIUM 1.4 mg/dL (1.8-2.4); POTASSIUM SERUM 3.6 mmol/L (3.5-5.1)
[2018-08-31] MEDS ORDERED: TAM75 PO (11:45)
== END 2018-08-31 13:09 | disposition left against medical advice (07) | DRG 351 ==
LOC: ED 11:55 → DU 13:11
PROVIDERS: Emergency Medicine; ADMIT Internal Medicine
DX: M62.82 Rhabdomyolysis (principal); N17.9 Acute kidney failure, unspecified; E83.42 Hypomagnesemia; E87.1 Hypo-osmolality and hyponatremia; M54.42 Lumbago with sciatica, left side; E03.9 Hypothyroidism, unspecified; F41.9 Anxiety disorder, unspecified; E78.5 Hyperlipidemia, unspecified; G89.29 Other chronic pain; Z68.23 Body mass index [BMI] 23.0-23.9, adult; Z79.82 Long term (current) use of aspirin; Z79.899 Other long term (current) drug therapy; Z88.2 Allergy status to sulfonamides; Z88.8 Allergy status to other drugs, medicaments and biological substances; Z91.018 Allergy to other foods; Z56.0 Unemployment, unspecified
CPT/HCPCS: 83880; 84439; 87804; 94150; G0480; J3475; J7030; J7620; Q0092

== ENCOUNTER 2018-09-01 06:48 | Inpatient (IN) | payer OTHER ==
[~2018-09-01] VITALS: Ht 160 cm; Wt 70.5 kg
[~2018-09-01 06:48] MED LIST changes: +TAM75 PO
[2018-09-01 06:56] VITALS: Ht 160 cm; Wt 70.5 kg
--- NOTE | 2018-09-01 07:02 | NUR ---
PT WAS ADMITTED TO [facility] FOR 4 DAYS AND LEFT YESTERDAY AMA TO GO VISIT A FAMILY MEMEBER. PT CONTINUES TO HAVE WEAKNESS AND BODY ACHES SO DECIDED TO RETURN TO THE HOSPITAL.
--- NOTE | 2018-09-01 07:10 | NUR ---
MSE COMPLETED BY DR VASQUEZ
--- NOTE | 2018-09-01 07:10 | NUR ---
REPORT RECEIVED FROM MATTHEW SHEEHAN.
--- NOTE | 2018-09-01 07:28 | NUR ---
PT AMBULATORY TO BATHROOM W/ STEADY GAIT INST TO PROVIDE URINE SAMPLE
--- NOTE | 2018-09-01 07:40 | NUR ---
PT C/O PAIN TO IV SITE. IVF INFUSION STOPPED. WILL ATTEMPT TO ESTABLISH NEW IV
--- NOTE | 2018-09-01 07:45 | NUR ---
LAB AT BEDSIDE FOR BLOOD DRAW
[2018-09-01 07:48] LABS: microscopic required? NO
[2018-09-01 08:00] LABS: UA SPECIFIC GRAVITY 1.015 (1.005-1.035); urine erythrocyte NEGATIVE (NEGATIVE)
[2018-09-01 08:04] LABS: BASOPHIL % 0.3 % (0-2); PLATELET COUNT 140 x10^3mcL (130-400); RED CELL DISTRIBUTION WIDTH 13.2 % (11.5-14.5)
[2018-09-01 08:05] LABS: CALCIUM 8.6 mg/dL (8.5-10.1); CARBON DIOXIDE 29.1 mmol/L (21-32); CREATININE SERUM 1.5 mg/dL (0.6-1.0); POTASSIUM SERUM 4.5 mmol/L (3.5-5.1)
[2018-09-01 08:09] LABS: ALBUMIN 3.5 g/dL (3.4-5.0); BILIRUBIN TOTAL 0.71 mg/dL (0.20-1.00); TOTAL PROTEIN, SERUM 8.1 g/dL (6.4-8.2)
--- NOTE | 2018-09-01 09:08 | NUR ---
PT C/O PAIN WILL INFORM ER MD FOR FURTHER ORDERS
--- NOTE | 2018-09-01 09:18 | NUR ---
DR VASQUEZ MADE AWARE OF PTS PAIN, VERBAL ORDER FOR MORPHINE 4MG IVP OBTAINED WILL MEDICATE
--- NOTE | 2018-09-01 09:22 | NUR ---
PT MEDICATED WITH MORPHINE 4MG SIVP DILUTED WITH 10CC NS WITH NO PROBLEM. IVF INFUSING WITH NO PROBLEM, PT ON CM NSR VSS WILL MONITOR
--- NOTE | 2018-09-01 10:07 | NUR ---
PT SLEEPING EASILY AROUSABLE FREE OF PAIN. WILL CONTINUE TO MONITOR
--- NOTE | 2018-09-01 12:23 | NUR ---
REPORT GIVEN TO AINSLEY SHEEHAN RESUMING CARE OF PT AT THIS TIME.
--- NOTE | 2018-09-01 12:44 | NUR ---
PT TRANSFERRED TO TELE FLOOR VIA GURNEY IN NO DISTRESS ON PORTABLE CM . AINSLEY SHEEHAN RESUMED CARE OF PT
--- NOTE | 2018-09-01 12:45 | NUR ---
RECEIVED PT IN BED. ASSESSED AND DOCUMENTED. DENIES PAIN THIS TIME. C/O NAUSEA, WILL GIVE NAUSEA MEDICINE SOON PHARMACY VERIFY. NO VOMITTING. SAFTEY PRECAUTIONS ARE IN PLACE. WILL MONITOR.
--- NOTE | 2018-09-01 13:56 | NUR ---
PT C/O GENERALISED BODY PAIN. MEDICATED PT WITH DILAUDID PO ORDERED. WILL MONITOR.
--- NOTE | 2018-09-01 14:45 | NUR ---
PT SAID SHE DOESNOT HAVE ANY PAIN NOW. NO MORE NAUSEA. STABLE.
[2018-09-01 16:30] VITALS: BP 96/58
[2018-09-01 17:18] VITALS: BP 98/52
--- NOTE | 2018-09-01 18:51 | NUR ---
PT C/O NAUSEA. MEDICATED PT WITH ZOFRAN IV ORDERED. WILL MONITOR.
--- NOTE | 2018-09-01 19:20 | NUR ---
PT RESTING IN BED COMFORTABLY, DENIES PAIN THIS TIME. NO NAUSEA THIS TIME. GAVE REPORT TO FOOD PROCESSOR NURSE.
--- NOTE | 2018-09-01 19:50 | NUR ---
RECEIVED REPORT FROM DAY SHIFT RN. PT RESTING IN BED. AA&O X4. NO SOB ON ROOM AIR. NO C/O PAIN AT THIS TIME. IV TO RAC, NS INFUSING. SAFETY MEASURES IN PLACE. BED IN LOWEST POSITION. SIDE RAILS UP X2. INSTRUCTED PT TO USE THE CALL LIGHT FOR ASSISTANCE. CALL LIGHT WITHIN REACH.
[2018-09-01 21:49] VITALS: BP 102/55
--- NOTE | 2018-09-01 22:49 | NUR ---
DILAUDID GIVEN FOR GENERALIZED BODYACHE 10/10 AND ZOFRAN FOR NAUSEA.
[2018-09-02 05:59] VITALS: BP 102/57
--- NOTE | 2018-09-02 06:37 | NUR ---
ZOFRAN GIVEN FOR NAUSEA.
[2018-09-02 06:46] LABS: CALCIUM 8.1 mg/dL (8.5-10.1); CARBON DIOXIDE 23.7 mmol/L (21-32); CREATININE SERUM 1.3 mg/dL (0.6-1.0); POTASSIUM SERUM 4.2 mmol/L (3.5-5.1)
--- NOTE | 2018-09-02 07:15 | NUR ---
RECEIVED PATIENT FROM TUCKPOINTER CLEANER CAULKER NURSE. PATIENT IS RESTING WITH BOTH EYES CLOSED, AROUSABLE. TELE#13, SR, HR 87. PATIENT IS ON ROOM AIR, BREATHING EVEN AND UNLABORED. OCCASIONAL COUGH PER TUCKPOINTER CLEANER CAULKER NURSE. IV NOTED TO RAC, IVF INFUSING WELL ORDERED, NO S/S REDNESS OR EDEMA. CALL LIGHT WITHIN EASY REACH. WILL CONTINUE PLAN OF CARE.
--- NOTE | 2018-09-02 07:20 | NUR ---
PT SLEPT AT INTERVALS THROUGHOUT SHIFT. NO SOB ON ROOM AIR. NO C/O PAIN AT THIS TIME. NO DISTRESS NOTED. SHODDY MILL WORKER REPORTED BLOOD GLUCOSE 46. APPLE JUICE GIVEN WITH SUGAR. DR LANIER MADE AWARE. NO NEW ORDERS AT THIS TIME. ENDORSED CONTINUITY OF CARE TO DAY SHIFT RN.
[2018-09-02 08:33] LABS: BASOPHIL % 0.5 % (0-2); PLATELET COUNT 130 x10^3mcL (130-400); RED CELL DISTRIBUTION WIDTH 13.7 % (11.5-14.5)
--- NOTE | 2018-09-02 09:41 | NUR ---
DR LANIER NOTIFIED OF PATIENT AM LAB. BS 46. REASSESSED UPON SHIFT CHANGE AND BS 75. RECOMMENDED A1C TO BE DRAWN. NO FURTHER ORDERS PER DR LANIER AT THIS TIME.
[2018-09-02 10:25] VITALS: BP 106/69
[2018-09-02 12:32] VITALS: BP 102/70
--- NOTE | 2018-09-02 12:53 | NUR ---
PATIENT STATES "MY APPETITE IS BACK AND I WOULD LIKE SOME REAL FOOD IF THAT IS POSSIBLE." DR LANIER TO BE NOTIFIED AND TO REQUEST FOR REGULAR DIET FOR PATIENT. IVF REMAINS INFUSING WELL TO LAC. PATIENT ENCOURAGED TO DRINK WATER. WILL CONTINUE TO MONITOR.
[2018-09-02 17:30] VITALS: BP 114/54
--- NOTE | 2018-09-02 18:53 | NUR ---
PATIENT RESTING IN BED PEACEFULLY IN NO ACUTE DISTRESS. ON ROOM AIR, BREATHING EVEN AND UNLABORED. IVF INFUSING WELL TO LAC, NO S/S REDNESS OR EDEMA. CALL LIGHT WITHIN EASY REACH. WILL ENDORSE PATIENT CARE TO CLAIM MANAGER NURSE.
--- NOTE | 2018-09-02 20:00 | NUR ---
PT RECIEVED AAO REG RESP NO SOB V/S STABLE,KEPT CLEAN AND DRY TO TOUCH,PT ON DROPLET ISOLATION,IV INFUSING WELL WITH THE SITE PATENT AND INTACT,PT ON TELE MONITOR AND IN NSR NO ECTOPY OR CHEST PAIN AT THIS TIME,BED IN THE LOW POSITION AND LOCKED,KEPT CLEAN AND DRY TO TOUCH AND WILL CONTINUE TO MONITOR.
[2018-09-02 21:07] VITALS: BP 93/56
[2018-09-03 05:10] VITALS: BP 96/58
--- NOTE | 2018-09-03 06:25 | NUR ---
PT HAD A RESTING NIGHT NO CHANGE AT THIS TIME,CALL LIGHT EASY REACHED AND WILL CONTINUE TO MONITOR.
--- NOTE | 2018-09-03 07:44 | NUR ---
PT IS AAOX4. FOLLOWS COMMANDS. DENIES H/A OR DIZZINESS. RESP EVEN, SHALLOW AND UNLABORED. LUNG SOUNDS DIMINISHED BLL. TELEMONITOR IN PLACE READING NSR. ABDOMEN SOFT, NONTENDER, NONDISTENDED. BOWEL SOUNDS ACTIVE. PT REPORTS EPISODES OF DIARRHEA. SKIN CDI. PERIPHERAL PULSES PALPABLE. NO EDEMA NOTED. IVF RUNNING TO LAC, SITE IS PATENT WITH NO S/S OF INFECTION OR INFILTRATION. CALL LIGHT WITHIN REACH. BED IN LOW POSITION.
[2018-09-03 08:08] LABS: BASOPHIL % 0.9 % (0-2); PLATELET COUNT 165 x10^3mcL (130-400); RED CELL DISTRIBUTION WIDTH 13.9 % (11.5-14.5)
[2018-09-03 08:14] LABS: CALCIUM 8.6 mg/dL (8.5-10.1); CARBON DIOXIDE 28.6 mmol/L (21-32); CREATININE SERUM 1.4 mg/dL (0.6-1.0); POTASSIUM SERUM 4.5 mmol/L (3.5-5.1)
[2018-09-03 09:10] VITALS: BP 95/53
--- NOTE | 2018-09-03 09:23 | NUR ---
DUE MEDS GIVEN. NORCO PO GIVEN FOR PROFUSE, ALL OVER PAIN. FLUIDS ENCOURAGE. NO RESP DISTRESS NOTED. DROPLET PRECAUTIONS FOLLOWED. CALL LIGHT WITHIN REACH.
--- NOTE | 2018-09-03 11:43 | NUR ---
PT IS IN BED WATCHING TV. DENIES PAIN OR DISCOMFORT AT THIS TIME. NO DISTRESS NOTED. EXTRA FLUIDS GIVEN. CALL LIGHT WITHIN REACH.
[2018-09-03 13:16] VITALS: BP 88/49
--- NOTE | 2018-09-03 15:00 | NUR ---
PT IS SLEEPING BUT EASILY AROUSABLE. RESP EVEN AND UNLABORED. NO DISTRESS NOTED. CALL LIGHT WITHIN REACH.
[2018-09-03 16:45] VITALS: BP 102/54
--- NOTE | 2018-09-03 17:56 | NUR ---
NORCO 10MG PO GIVEN FOR BODY AND BACK PAIN. FLUIDS ENCOURAGED. RESP EVEN AND UNLABORED. CALL LIGHT WITHIN REACH.
--- NOTE | 2018-09-03 18:44 | NUR ---
PT IS AAOX4. RESP EVEN AND UNLABORED. DENIES PAIN AND DISCOMFORT AT THIS TIME. NO DISTRESS NOTED. TELE 13 READING NSR. IVF RUNNING TO RAC, PATENT WITH NO S/S OF INFILTRATION OR INFECTION NOTED. BED IN LOW POSITION. CALL LIGHT WITHIN REACH. WILL ENDORSE ALL CARE TO NOC RN.
[2018-09-03 19:25] VITALS: BP 93/50
--- NOTE | 2018-09-03 19:25 | NUR ---
RECEIVED PT AWAKE ALERT AND VERBALLY RESPONSIVE.BREATHING EASY AND NON-LABORED.ON AND OFF COUGHING TO YELLOW COLORED PHLEGM PER PT.TOLERATING ROOM AIR O2 SAT @ 98%.O2 ON STANDBY.ON DROPLET PRECAUTION FOR INFLUENA B+.DROPLET PRECAUTION OBERVED.C/O GENERALIZED BODYACHES 02/24.WILL CONTINUE TO MONITOR.
--- NOTE | 2018-09-04 04:44 | NUR ---
PT SLEPT WELL.BREATHING EASY AND NON-LABORED WITH ON AND OFF COUGHING.DENIES SOB/DIFFICULTY BREATHING.REMAINS ON DROPLET PRECAUTION FOR INFLUENZA B+.GOODHANDWASHING TECHNIQUE OBSERVED.ON TAMIFLU PO.ALL NEEDS MET.WILL CONTINUE TO MONITOR.
[2018-09-04 05:45] VITALS: BP 93/54
--- NOTE | 2018-09-04 08:00 | NUR ---
PATIENT RECEIVED ALERT AND ORIENTED TIMES FOUR. PATEINT HAS BEEN AMBULATORY AND NO ACUTE DISTRESS AT THIS TIME. VITALS ARE STABLE AT 98.0, 65, 18, 96/52, 98% ON ROOM AIR. PATIENT HAS NO NEW LABS AND HAS NOT REQUESTED PAIN MEDICADTION SINC ELAST NIGHT AT DINNER. PATIENT AHS SOME TRACE EDEMA TO THE LOWER EXTREMITES AND DENIES CHEST PAIN OR SOB AT THIS TIME. HX OF HYPOTHYROIDISM, REOCCURING RHASOMYOLYSIS AND WAS THIS ADMISSION POSITIVE FOR INFLUENZA TYPE B. PATIENT HAS RECEIVED HER DOSING OR TAMIFLU AND HAS BEEN HERE IN THE HOSPITAL SINCE THE . SHE HAS MULTIPLE ALLERGIES NOTED AND HAS NO SIGNS OR SYMPTOMS OF ANY ADVERSE REACTION TO ANY MEDICATIONS GIVEN. PLAN OF CARE FOR POSSIBLE DISCHARGE HOME TODAY. HAS BEEN IN ISOLATION PER [facility] FOR INFLUENZA DROPLET PRECAUTIONS.
[2018-09-04 09:01] VITALS: BP 96/52
--- NOTE | 2018-09-04 09:52 | NUR ---
SEEN BY DR LANIER AND ORDER FOR DISCHARGE RECEIVED. PATIENT INDICATED EARLIER SHE DOES WANT TO GO HOME BUT SHE MEETS CRITERIA FOR DISCHARGE TODAY. PATIENT HAS CLEAR BREATH SOUNDS AND VITALS ARE STABLE AT THIS TIME. WILL COMPLETE THE ORDERS AND DISCHARGE HOME PLANNED. GAVE HER DOSING OF TAMIFU ORDERED.
[2018-09-04 10:03] VITALS: BP 96/52
--- NOTE | 2018-09-04 10:07 | NUR ---
PATIENT IS AWARE OF DISCHARGE BUT NO RIDE TILL AFTER 2 PM. WILL CONTINUE TO MONTIOR INDICATED.
[2018-09-04 12:36] VITALS: BP 92/55
--- NOTE | 2018-09-04 13:36 | NUR ---
PATIENT RESTING AT THIS TIME. NOTED THE BP IS LOW BUT PATIENTIS SYMPTOMATIC AND NO BP MEDICATION WAS GIVEN. NO FEVER NOTED AT THIS TIME. PATIENT FOR DISCHARGE HOME WHEN FAMILY COMES TO LUMBER INSPECTOR AROUND 2PM PER THE PATIENT.
--- NOTE | 2018-09-04 13:50 | NUR ---
PATIENT STATES NOW HER RIDE FELL THOUGH AND SHE DOES NOT HAVE THE MONEY FOR A CAB IF STAFF CALLED FOR HER. CALLED SS AND AWAITING CALL BACK TO SEE IF THEY CAN HELP GET THE PATIENT HOME. SHE STATES THE FRIEND WHO WAS GOING TO GIVE A RIDE IS WORKING TILL 10PM TONIGHT.
--- NOTE | 2018-09-04 16:39 | NUR ---
CALLED AGAIN THE [employer]LE[employer] MARKET SELLER TO SEE IF ANY OPTIONS FOR A RIDE HOME THE PATIENT FRIEND CAN NOT MAKE IT AND EVEN AFTER 1000PM SHE HAS ANOTHER OBLIGATION TO WATCH HER GRANDCHILDREN. PER THE PATIENT THE IS IN A WHEELCHAIR AND THERE IS NO ONE WHO CAN PICK HER UP. A VOUCHER FOR A TAXI SUPPLIED WHEN THE PATIENT FELT SHE WAS UNABLE TO TOLERATE GETTING TO THE BUS STOP WE OFFERED PER THE FLEA MARKET SELLER. SINCE A CAB IS OFFERED PATIENT WILL GO HOME AND AWAITING OSTEOPATHIC MEDICINE TEACHER AT THIS TIME. PATIENT HAS BEEN WITH CONTINDUED MILD GENERAL WEAKNESS BU HAS LABS AND RECEIVED FULL COARSE OF THE TAMIFLU INDICATED. PATIENT HAS BEEN AMBULATORY WITH NO NAUSEA AND NO COMPLAINTS OF PAIN. NO FEVER AND VITALS ARE STABLE.
--- NOTE | 2018-09-04 17:18 | NUR ---
PATIENT DRESSED AND IV AND TELE REMOVED AND AWAITING CAB AT THIS TIME. PATIENT TO FOLLOW UP WITH PRIMARY DOCTOR INDICATED.
== END 2018-09-04 17:54 | disposition home or self-care (01) | DRG 351 ==
LOC: ED 06:48 → DU 10:16
PROVIDERS: Emergency Medicine; Internal Medicine Nephrology; ADMIT Internal Medicine
DX: M62.82 Rhabdomyolysis (principal); N17.9 Acute kidney failure, unspecified; I95.9 Hypotension, unspecified; E87.1 Hypo-osmolality and hyponatremia; E86.0 Dehydration; J11.1 Influenza due to unidentified influenza virus with other respiratory manifestations; N18.9 Chronic kidney disease, unspecified; E03.9 Hypothyroidism, unspecified; M60.9 Myositis, unspecified; Z68.24 Body mass index [BMI] 24.0-24.9, adult
CPT/HCPCS: 82962; J1885; J2270; J2405; J3475; J7030

== ENCOUNTER 2018-09-07 11:23 | Inpatient (IN) | payer OTHER ==
[~2018-09-07] VITALS: Ht 160 cm; Wt 86.3 kg
[2018-09-07 11:59] VITALS: Ht 160 cm; Wt 86.3 kg
[2018-09-07 14:27] LABS: BASOPHIL % 1.1 % (0-2); PLATELET COUNT 316 x10^3mcL (130-400); RED CELL DISTRIBUTION WIDTH 13.3 % (11.5-14.5)
[2018-09-07 14:55] LABS: ALBUMIN 4.3 g/dL (3.4-5.0); BILIRUBIN TOTAL 0.59 mg/dL (0.20-1.00); CARBON DIOXIDE 29.1 mmol/L (21-32); CREATININE SERUM 1.3 mg/dL (0.6-1.0); POTASSIUM SERUM 4.1 mmol/L (3.5-5.1); T3 TOTAL 0.57 ng/mL
[2018-09-07 14:58] LABS: CHOLESTEROL/HDL RATIO 8.8; TOTAL PROTEIN, SERUM 10.1 g/dL (6.4-8.2)
[2018-09-07 15:01] LABS: FREE T4 0.44 ng/dL (0.76-1.46); FREE THYROXINE INDEX 1.3 ug/dL (1.4-4.5); T4(THYROXINE) 5.8 ug/dL (4.7-13.3)
[2018-09-07 15:47] LABS: microscopic required? YES; urine erythrocyte NEGATIVE (NEGATIVE)
[2018-09-07 17:44] VITALS: BP 142/75
[2018-09-07 22:04] VITALS: BP 111/54
[2018-09-08 05:08] VITALS: BP 100/50
[2018-09-08 07:45] LABS: BASOPHIL % 0.9 % (0-2); PLATELET COUNT 247 x10^3mcL (130-400)
[2018-09-08 07:57] LABS: CALCIUM 8.7 mg/dL (8.5-10.1); CARBON DIOXIDE 27.3 mmol/L (21-32); CREATININE SERUM 1.6 mg/dL (0.6-1.0); POTASSIUM SERUM 4.9 mmol/L (3.5-5.1)
[2018-09-08 08:26] VITALS: BP 107/58
[2018-09-08 12:29] VITALS: BP 110/60
[2018-09-08 17:02] VITALS: BP 121/61
[2018-09-08 21:06] VITALS: BP 92/52
[2018-09-09 05:11] VITALS: BP 96/50
[2018-09-09 07:06] LABS: PLATELET COUNT 287 x10^3mcL (130-400); RED CELL DISTRIBUTION WIDTH 13.3 % (11.5-14.5)
[2018-09-09 07:10] LABS: CALCIUM 8.7 mg/dL (8.5-10.1); CARBON DIOXIDE 25.3 mmol/L (21-32); CREATININE SERUM 1.8 mg/dL (0.6-1.0); POTASSIUM SERUM 4.9 mmol/L (3.5-5.1)
[2018-09-09 09:40] VITALS: BP 72/39
[2018-09-09 10:45] VITALS: BP 79/39
[2018-09-09 10:52] VITALS: BP 73/41
[2018-09-09 12:01] LABS: BAND NEUTROPHIL 9 % (0-10); BASOPHIL 0 % (0-2); MONOCYTE 5 % (0-7); PLATELET MORPHOLOGY PLATELETS DECREASED; SEGMENTED NEUTROPHILS 82 % (37-75); rbc morphology (normal/abnorm) ABNORMAL (NORMAL)
[2018-09-09 15:20] VITALS: BP 99/54
[2018-09-09 17:23] VITALS: BP 99/54
[2018-09-10 05:23] LABS: BASOPHIL % 0.3 % (0-2); PLATELET COUNT 306 x10^3mcL (130-400); RED CELL DISTRIBUTION WIDTH 13.4 % (11.5-14.5)
[2018-09-10 05:34] LABS: CALCIUM 8.3 mg/dL (8.5-10.1); CARBON DIOXIDE 20.6 mmol/L (21-32); CREATININE SERUM 1.5 mg/dL (0.6-1.0); POTASSIUM SERUM 4.6 mmol/L (3.5-5.1)
[2018-09-10 07:45] VITALS: BP 100/61
[2018-09-10 12:00] VITALS: BP 95/59
[2018-09-10 15:54] VITALS: BP 94/56
[2018-09-10 20:54] VITALS: BP 94/49
[2018-09-11 06:06] VITALS: BP 100/55
[2018-09-11 07:05] LABS: CALCIUM 8.1 mg/dL (8.5-10.1); CARBON DIOXIDE 19.7 mmol/L (21-32); CREATININE SERUM 1.2 mg/dL (0.6-1.0); POTASSIUM SERUM 4.3 mmol/L (3.5-5.1)
[2018-09-11 07:31] LABS: BASOPHIL % 0.9 % (0-2); PLATELET COUNT 253 x10^3mcL (130-400); RED CELL DISTRIBUTION WIDTH 13.5 % (11.5-14.5)
[2018-09-11 07:39] VITALS: BP 91/51
[2018-09-11 12:07] VITALS: BP 94/54
[2018-09-11 16:16] VITALS: BP 90/44
[2018-09-11 21:16] VITALS: BP 85/49
[2018-09-11 21:28] VITALS: BP 95/46
[2018-09-12 05:16] VITALS: BP 99/55
[2018-09-12 06:52] LABS: PLATELET COUNT 232 x10^3mcL (130-400); RED CELL DISTRIBUTION WIDTH 13.4 % (11.5-14.5)
[2018-09-12 07:14] VITALS: BP 91/55
[2018-09-12 07:30] LABS: CALCIUM 7.9 mg/dL (8.5-10.1); CARBON DIOXIDE 24.5 mmol/L (21-32); CREATININE SERUM 1.2 mg/dL (0.6-1.0); POTASSIUM SERUM 4.1 mmol/L (3.5-5.1)
[2018-09-12 13:51] VITALS: BP 91/55
== END 2018-09-12 14:36 | disposition home or self-care (01) | DRG 720 ==
LOC: ED 11:23 → DU 16:43 → IC 09-09 13:01 → DU 09-10 15:49
PROVIDERS: Specialist; ADMIT Internal Medicine
DX: A41.9 Sepsis, unspecified organism (principal); R65.21 Severe sepsis with septic shock; N17.9 Acute kidney failure, unspecified; M62.82 Rhabdomyolysis; E87.1 Hypo-osmolality and hyponatremia; E03.9 Hypothyroidism, unspecified; T39.395A Adverse effect of other nonsteroidal anti-inflammatory drugs [NSAID], initial encounter; N39.0 Urinary tract infection, site not specified; G89.29 Other chronic pain; M54.9 Dorsalgia, unspecified; N18.9 Chronic kidney disease, unspecified; I12.9 Hypertensive chronic kidney disease with stage 1 through stage 4 chronic kidney disease, or unspecified chronic kidney disease; M60.9 Myositis, unspecified; F41.9 Anxiety disorder, unspecified; F32.9 Major depressive disorder, single episode, unspecified; Z88.6 Allergy status to analgesic agent; Z88.2 Allergy status to sulfonamides; Z88.8 Allergy status to other drugs, medicaments and biological substances; Y92.89 Other specified places as the place of occurrence of the external cause
CPT/HCPCS: 83880; 84439; 94150; 97110-GP; J1885; J1956; J2270; J2405; J3010; J3490; J7030; J7620; P9047

== ENCOUNTER 2018-09-26 11:13 | Emergency (ER) | payer OTHER ==
[~2018-09-26] VITALS: Ht 160 cm; Wt 60.8 kg
[2018-09-26 11:19] VITALS: Ht 160 cm; Wt 60.8 kg
[2018-09-26 11:57] LABS: BASOPHIL % 1.8 % (0-2); PLATELET COUNT 247 x10^3mcL (130-400); RED CELL DISTRIBUTION WIDTH 13.6 % (11.5-14.5)
[2018-09-26 12:23] LABS: CALCIUM 9.6 mg/dL (8.5-10.1); CARBON DIOXIDE 27.5 mmol/L (21-32); CREATININE SERUM 1.4 mg/dL (0.6-1.0); POTASSIUM SERUM 4.8 mmol/L (3.5-5.1)
[2018-09-26 12:27] LABS: ALBUMIN 4.3 g/dL (3.4-5.0); BILIRUBIN TOTAL 0.7 mg/dL (0.20-1.00)
[2018-09-26 12:28] LABS: T3 TOTAL 1.27 ng/mL
[2018-09-26 12:32] LABS: UA SPECIFIC GRAVITY 1.015 (1.005-1.035); microscopic required? YES; urine erythrocyte NEGATIVE (NEGATIVE)
[2018-09-26 12:35] LABS: FREE T4 0.91 ng/dL (0.76-1.46); FREE THYROXINE INDEX 2.8 ug/dL (1.4-4.5); T4(THYROXINE) 8.9 ug/dL (4.7-13.3)
[2018-09-26 12:36] LABS: CHOLESTEROL/HDL RATIO 6.5; TOTAL PROTEIN, SERUM 9.4 g/dL (6.4-8.2)
[2018-09-26 12:41] LABS: AMPHETAMINE QUAL UR NONE DETECTED (See below)
[2018-09-26 13:34] VITALS: BP 104/62
== END 2018-09-26 13:34 | disposition home or self-care (01) ==
LOC: ED 11:13
PROVIDERS: Specialist
DX: M79.10 Myalgia, unspecified site (principal); R25.2 Cramp and spasm; G89.29 Other chronic pain; F32.9 Major depressive disorder, single episode, unspecified; F41.9 Anxiety disorder, unspecified; E78.00 Pure hypercholesterolemia, unspecified; M54.9 Dorsalgia, unspecified; Z88.2 Allergy status to sulfonamides; Z88.8 Allergy status to other drugs, medicaments and biological substances; Z88.1 Allergy status to other antibiotic agents; Z91.018 Allergy to other foods
CPT/HCPCS: 83880; 84439; G0480; J2800

== ENCOUNTER 2018-11-23 10:56 | Inpatient (IN) | payer OTHER ==
[~2018-11-23] VITALS: Ht 160 cm; Wt 67.0 kg
[2018-11-23 10:59] VITALS: Ht 160 cm; Wt 67.0 kg
[2018-11-23 14:54] LABS: BASOPHIL % 0.7 % (0-2); PLATELET COUNT 198 x10^3mcL (130-400)
[2018-11-23 14:56] LABS: RED CELL DISTRIBUTION WIDTH 14.6 % (11.5-14.5)
[2018-11-23 15:00] LABS: ALBUMIN 4.4 g/dL (3.4-5.0); BILIRUBIN TOTAL 0.86 mg/dL (0.20-1.00); CALCIUM 9.8 mg/dL (8.5-10.1); CREATININE SERUM 1.8 mg/dL (0.6-1.0); FREE T4 0.19 ng/dL (0.76-1.46); MAGNESIUM 1.7 mg/dL (1.8-2.4); POTASSIUM SERUM 4.5 mmol/L (3.5-5.1)
[2018-11-23 15:06] LABS: TOTAL PROTEIN, SERUM 9.4 g/dL (6.4-8.2)
[2018-11-23] MEDS ORDERED: SYNTHROID0.112 MG (16:10)
[2018-11-23] MEDS ORDERED: VAL10 PO (16:10)
[2018-11-23] MEDS ORDERED: GABAPENTIN100 M2 (16:11)
[2018-11-23] MEDS ORDERED: NOR10T (16:12)
[2018-11-23 20:05] VITALS: BP 101/61; BP 101/67
[2018-11-24 05:53] VITALS: BP 91/57
[2018-11-24 06:24] LABS: BASOPHIL % 0.7 % (0-2); PLATELET COUNT 185 x10^3mcL (130-400); RED CELL DISTRIBUTION WIDTH 14.4 % (11.5-14.5)
[2018-11-24 06:42] LABS: CALCIUM 8.5 mg/dL (8.5-10.1); CARBON DIOXIDE 29.3 mmol/L (21-32); CREATININE SERUM 1.5 mg/dL (0.6-1.0); MAGNESIUM 1.7 mg/dL (1.8-2.4)
[2018-11-24 07:05] LABS: POTASSIUM SERUM 5.9 mmol/L (3.5-5.1)
[2018-11-24 09:31] VITALS: BP 91/58
[2018-11-24 12:50] VITALS: BP 96/57
[2018-11-24 17:22] VITALS: BP 93/54
[2018-11-24 21:18] VITALS: BP 93/60
[2018-11-25 05:27] VITALS: BP 98/54
[2018-11-25 06:24] LABS: BASOPHIL % 0.6 % (0-2); PLATELET COUNT 174 x10^3mcL (130-400)
[2018-11-25 06:42] LABS: CALCIUM 9.5 mg/dL (8.5-10.1); CARBON DIOXIDE 30.6 mmol/L (21-32); CREATININE SERUM 1.6 mg/dL (0.6-1.0); MAGNESIUM 1.6 mg/dL (1.8-2.4)
[2018-11-25 06:47] LABS: RED CELL DISTRIBUTION WIDTH 14.9 % (11.5-14.5)
[2018-11-25 12:22] VITALS: BP 93/51
[2018-11-25 16:45] VITALS: BP 92/51
[2018-11-25 23:55] VITALS: BP 94/51
[2018-11-26 05:26] VITALS: BP 98/46
[2018-11-26 06:15] LABS: BASOPHIL % 0.4 % (0-2); PLATELET COUNT 153 x10^3mcL (130-400)
[2018-11-26 06:23] LABS: CALCIUM 8.2 mg/dL (8.5-10.1); CARBON DIOXIDE 29.1 mmol/L (21-32); CREATININE SERUM 1.4 mg/dL (0.6-1.0); POTASSIUM SERUM 5.5 mmol/L (3.5-5.1); RED CELL DISTRIBUTION WIDTH 14.7 % (11.5-14.5)
[2018-11-26 09:00] VITALS: BP 93/51
[2018-11-26 12:21] VITALS: BP 92/52
[2018-11-26 17:04] VITALS: BP 98/58
[2018-11-26 20:57] VITALS: BP 90/56
[2018-11-27 06:12] LABS: CALCIUM 8.7 mg/dL (8.5-10.1); CARBON DIOXIDE 27.3 mmol/L (21-32); CREATININE SERUM 1.5 mg/dL (0.6-1.0); POTASSIUM SERUM 4.7 mmol/L (3.5-5.1)
[2018-11-27 06:40] LABS: BASOPHIL % 1.4 % (0-2); PLATELET COUNT 157 x10^3mcL (130-400)
[2018-11-27 06:48] LABS: RED CELL DISTRIBUTION WIDTH 14.8 % (11.5-14.5)
[2018-11-27 08:00] VITALS: BP 102/57
[2018-11-27 19:25] VITALS: BP 98/56
[2018-11-27 21:03] VITALS: BP 93/54
[2018-11-28 06:12] VITALS: BP 101/55
[2018-11-28 07:19] LABS: BASOPHIL % 1.1 % (0-2); PLATELET COUNT 181 x10^3mcL (130-400)
[2018-11-28 07:30] LABS: RED CELL DISTRIBUTION WIDTH 15.3 % (11.5-14.5)
[2018-11-28 07:33] LABS: CALCIUM 9.3 mg/dL (8.5-10.1); CARBON DIOXIDE 28.5 mmol/L (21-32); CREATININE SERUM 1.4 mg/dL (0.6-1.0); MAGNESIUM 1.6 mg/dL (1.8-2.4); POTASSIUM SERUM 4.6 mmol/L (3.5-5.1)
[2018-11-28 09:13] VITALS: BP 91/55
[2018-11-28 10:46] VITALS: BP 91/55
== END 2018-11-28 21:42 | disposition home or self-care (01) | DRG 351 ==
LOC: ED 10:56 → DU 15:59 → MU 11-26 17:35
PROVIDERS: Emergency Medicine; Internal Medicine; ADMIT Internal Medicine
DX: M62.82 Rhabdomyolysis (principal); E87.1 Hypo-osmolality and hyponatremia; E03.9 Hypothyroidism, unspecified; E78.00 Pure hypercholesterolemia, unspecified; F41.9 Anxiety disorder, unspecified; F32.9 Major depressive disorder, single episode, unspecified; G89.29 Other chronic pain; M54.30 Sciatica, unspecified side; M54.9 Dorsalgia, unspecified; E78.5 Hyperlipidemia, unspecified; Z88.6 Allergy status to analgesic agent; Z88.2 Allergy status to sulfonamides; Z88.8 Allergy status to other drugs, medicaments and biological substances; Z91.018 Allergy to other foods
CPT/HCPCS: 84439; J2405; J3475; J3490; J7030

== ENCOUNTER 2019-01-08 11:31 | Inpatient (IN) | payer OTHER ==
[~2019-01-08] VITALS: Ht 160 cm; Wt 70.3 kg
[~2019-01-08 11:31] MED LIST changes: +GABAPENTIN100 M2; +NOR10T; +SYNTHROID0.112 MG
[2019-01-08 11:49] VITALS: Ht 160 cm; Wt 70.3 kg
--- NOTE | 2019-01-08 11:50 | NUR ---
PT BIBA FROM HOME FOR C/O HAVING GEN WEAKNESS "FOR A COUPLE DAYS NOW" AND HAVING N/V. PT REPORTS VOMITING "A LOT" IN THE PAST COUPLE OF DAYS. PT STS SHE THINKS SHE HAS RHABDO. PT HAS NO SIGNS OF DISTRESS. ASKED FOR TV. TWO WARM BLANKETS GIVEN TO PT.
[2019-01-08 12:06] LABS: BASOPHIL % 0.7 % (0-2); PLATELET COUNT 226 x10^3mcL (130-400)
[2019-01-08 12:15] LABS: RED CELL DISTRIBUTION WIDTH 15.7 % (11.5-14.5)
--- NOTE | 2019-01-08 12:23 | NUR ---
PT DOES NOT HAVE ENOUGH URINE FOR EXAM AT THIS TIME
[2019-01-08 12:26] LABS: CALCIUM 9.1 mg/dL (8.5-10.1); CARBON DIOXIDE 28.4 mmol/L (21-32); CHLORIDE SERUM 91 mmol/L (98-107); CREATININE SERUM 1.7 mg/dL (0.6-1.0); GFR1 33 mL/min; GLUCOSE SERUM 93 mg/dL (74-106); POTASSIUM SERUM 4.6 mmol/L (3.5-5.1); SODIUM SERUM 126 mmol/L (136-145)
[2019-01-08 12:31] LABS: ALBUMIN 4.1 g/dL (3.4-5.0); ALKALINE PHOSPHATASE 70 U/L (46-116); ALT/SGPT 40 U/L (14-59); AST/SGOT 99 U/L (15-37); BILIRUBIN TOTAL 0.7 mg/dL (0.20-1.00)
[2019-01-08 12:35] LABS: TOTAL PROTEIN, SERUM 8.8 g/dL (6.4-8.2)
[2019-01-08 12:37] LABS: FREE T4 0.13 ng/dL (0.76-1.46)
[2019-01-08 12:38] LABS: T3 TOTAL 0.17 ng/mL
[2019-01-08 13:18] LABS: FREE THYROXINE INDEX 0.1 ug/dL (1.4-4.5); T4(THYROXINE) < 0.5 ug/dL (4.7-13.3)
--- NOTE | 2019-01-08 13:39 | NUR ---
PT SITTING COMFORTABLY IN GURNEY, AWAKE AND ALERT, WATCHING TV, RESP E/U, NAD NOTED. CALL LIGHT IN HAND.
--- NOTE | 2019-01-08 13:51 | NUR ---
PT REPORTS FEELING NAUSEOUS, DR GOINS AWARE.
--- NOTE | 2019-01-08 14:04 | NUR ---
PT AMB TO RESTROOM
--- NOTE | 2019-01-08 14:07 | NUR ---
REPORT GIVEN TO SARI SEHEHAN
--- NOTE | 2019-01-08 14:39 | NUR ---
RECEIVED REPORT FROM ER STAFF. PATIENT HAS BEEN WITH GENERAL WEAKNESS AND NAUSEA AND VOMITING FOR TWO DAYS. NEEDS ADMITTING ORDER AND WILL BE COMING UP TO THE FLOOR AND RECEIVED BOLUS AND ZOFRAN IN THE ER. PATIENT IS WITHOUT TELE ORDERS AND PATIENT IS PREVIOUSLY AMBULATORY. SHE HAS HISTORY OF FIBROMYALGIA, GERD, ANXIETY, SCIATICA, PSYCH AND CHRONIC BACK PAIN. MULTIPLE ALLERGIES TO SULFA, COMPAZINE, PROCHLORPAZINE, TOMATO, LORAZAEPAM. PATIENT HAS CHRONIC BACK PAIN AND HX OF RHADOMYOLOSIS. WILL CONTINUE TO MONITOR AND ADVISE OF PLAN OF CARE.
--- NOTE | 2019-01-08 15:26 | NUR ---
DAY SNOWDEN CALLED FOR ADMIT ORDERS
[2019-01-08 15:30] LABS: microscopic required? NO
[2019-01-08 15:57] LABS: urine erythrocyte NEGATIVE (NEGATIVE)
[2019-01-08 16:05] LABS: AMPHETAMINE QUAL UR NONE DETECTED (See below)
[2019-01-08 17:41] VITALS: BP 102/59
--- NOTE | 2019-01-08 17:53 | NUR ---
GAVE NORCO ORDERED BUT SHE STATES SHE TAKES VALIUM WELL AT HOME. THERE IS NOT ORDER FOR VALIUM AT THIS TIME. WILL MONITOR FOR THE EFFECTIVENESS OF THE NORCO WHICH SHE STATES IS TO BE 10 NOT 5 NORCO WE HAD ORDERED PRIOR. SHE HAS BEEN WITH NAUSEA AND RECEIVED ZOFRAN IN THE ER AND SEEMS EFFECTIVE. NO VOMITING SINCE NOON NOTED. PATIENT STATES SHE USES A ELECTRIC WHEELCHAIR AT HOME AND A WALKER. SHE HAS BEEN LIVING WITH HER SPOUSE AND HAS NOT TAKEN HER MEDICATIONS SINCE THIS AM. SHE STATED WHEN ASKED SHE MISSED HER AFTERNOON MEDICATION, MEANING HER VALIUM AND HER NORCO. PATIENT HAS DIMINISHED BREATH SOUNDS AND BOWEL SOUNDS ACTIVE AND LAST BM WAS YESTERDAY AND NORMAL. SHE STATES SHE HAS A HISTORY OF BACK PAIN AND RIGHT HIP PAIN AND THAT SHE HAS HAD CHRONIC PAIN FOR SOME TIME NOW. SHE DOES NOT APPEAR IN PAIN WITH WITH NAUSEA BUT HAS BEEN FOR TWO DAYS. SHE HAS HISTORY OF GERD, HYPERLIPIDEMIA, HYPOTHRYROID, FIBROMYALGIA AND HX OF RHADOMYOLOSIS. PATIENT IV TO THE RIGHT AC OR OUTER PORTION NEAR THE ELBOW. SHE HAS INDICATED SHE IS 138 LBS BUT THE BEDSCALE INDICATED SHE IS 155LBS. SHE DENIES DRUGS, SMOKING OR ALCOHOL USE. WILL CONTINUE TO MONITOR INDICATED. VITALS AT ADMIT AT 97.3, 19, 102/59, 73 MAP, 93%.
[2019-01-08 18:12] VITALS: BP 102/59
--- NOTE | 2019-01-08 19:30 | NUR ---
RECEIVED PT FROM DAY SHIFT RN. PT IS AA&o X4 AND ABLE TO FOLLOW COMMANDS. PT IS CURRENTLY RESTING IN BED. PT DENIES CHEST PAIN OR SHORTNESS OF BREATH. THERE ARE NO USE OF ACCESSORY MUSCLES OR LABORED BREATHING ON ASSESSMENT. THERE IS A RAC IV THAT IS CLEAN DRY AND INTACT AT THIS TIME. SAFETY MEASURES ARE IN PLACE. CALL LIGHT IS WITHIN REACH. WILL CONTINUE TO MONITOR.
--- NOTE | 2019-01-08 20:21 | NUR ---
SPOKE WITH DR LANIER. ORDERS TO DC PROMETHAZINE AND NEW ORDER FOR ZOFRAN 4MG Q4H IV. ORDERS CARRIED OUT. AWAITING PHARMACY VERIFICATION.
--- NOTE | 2019-01-08 20:25 | NUR ---
SPOKE AGAIN WITH DR. LANIER REGULAR DIET ORDERED PER DR LANIER ORDERS
[2019-01-08 21:07] VITALS: BP 103/57
--- NOTE | 2019-01-08 21:37 | NUR ---
PT RESTING IN BED. MINOR COMPLAINTS OF NAUSEA BUT STATES THAT SHE IS ABLE TO TOLERATE FOOD AND IS CURRENTLY EATING SALTINE CRACKERS AND TOLERATING WELL. WILL CONTINUE TO MONITOR NAUSEA AND MEDICATE IF NEEDED.
--- NOTE | 2019-01-09 02:07 | NUR ---
PT RESTING IN BED. NO SIGNS OF DISTRESS NOTED. NO USE OF ACCESSORY MUSCLES OR LABORED BREATHING ON ASSESSMENT. NO FACIAL GRIMMACING. WILL CONTINUE TO MONITOR.
--- NOTE | 2019-01-09 05:16 | NUR ---
PT SLEPT IN INTERVALS THROUGHOUT THE NIGHT. NO CHEST PAIN OR SHORTNESS OF BREATH NOTED AT THIS TIME. PT RESTING IN BED WITH EYES CLOSED. NO USE OF ACCESSORY MUSCLES OR LABORED BREATHING. NO FACIAL GRIMMACING NOTED. SAFETY MEASURES IN PLACE CALL LIGHT WITHIN REACH. WILL ENDORSE TO DAY SHIFT RN.
[2019-01-09 05:56] VITALS: BP 92/53
[2019-01-09 06:05] LABS: BASOPHIL % 1.1 % (0-2); PLATELET COUNT 186 x10^3mcL (130-400)
[2019-01-09 06:21] LABS: CALCIUM 8.5 mg/dL (8.5-10.1); CARBON DIOXIDE 26.2 mmol/L (21-32); CREATININE SERUM 1.5 mg/dL (0.6-1.0); POTASSIUM SERUM 4.5 mmol/L (3.5-5.1)
[2019-01-09 06:48] LABS: RED CELL DISTRIBUTION WIDTH 15.8 % (11.5-14.5)
--- NOTE | 2019-01-09 08:00 | NUR ---
RECIEVED PATIENT AWAKE AND ORIENTED TO PERSON, PLACE AND TIME. IV INTACT AND THE NORCO/VALIUM SEEMS TO HAVE BEEN EFEFCTIVE OVERNIGHT. PATIENT HAS TOLERATED DIET AND FLUIDS WELL. NO RESPIRATOYR DISTRESS AND NO CONGESTION OR NAUSEA OR VOMITING NOTED. WILL CONTINUE TO MONITOR IDNICATED.
[2019-01-09 09:32] VITALS: BP 88/50
--- NOTE | 2019-01-09 09:42 | NUR ---
OFFERED HER HER ASA THIS AM BUT IS NOT AWAKENING TO TAKE. SHE IS WITH DIMINSHED BUT CLEAR BREATH SOUNDS AND HAS TOLERATED THE DIET AND FLUIDS OFFERED. SHE HAD RECEIVED NORCO EARLIER AND EFFECTIVE AT THIS TIME. PULSES PALABLE AND PATIENT HAS ACTIVE BOWEL SOUNDS AND SOME TRACE EDEMA TO THE LOWER EXTREMTIES. PATIENT HAS VITAL AT THIS TIME AT 97.8, 60, 18, 92/53, 98%. PATIENT HAS BEEN WITHOUT SOB AND DOES NOT APPEAR IN ANY ACUTE DISTRESS AT THIS TIME NO NAUSEA OR VOMITING NOTED. PATIENT HAS NOTED. LABS OF T3 AT 25.0, T4 0.13, TSH AT 68.890 AND PATIEN TA AST AT 99, NA AT 130. HAS AHD BEEN ON IV FLUIDS AND THE IV TO THE LEFT ELBOW AREA IS INTACT. PATIENT HAS HX OF HYPOTHORD, FIBROMYALSIA, GERD AND DEPRESSION. HAS HAS HAD MULTIPLE ADMISSIONS FOR HYPONATREMIA AND RHDOMOYLYSIS. WILL CONTINUE TO MONITOR INDICATED.
--- NOTE | 2019-01-09 11:59 | NUR ---
NOW AWAKE AND WANTS NORCO FOR PAIN. GAVE THATN AND HER PENDING ASA ORDERED. WILL MONITOR FOR EFFECTIVENESS.
[2019-01-09 12:30] VITALS: BP 103/60
--- NOTE | 2019-01-09 16:13 | NUR ---
RESTING QUIELTY AT THIS TIME CALLED BUT PATIENT SLEEPING THROUGH. ADVISED THE FAMILY PATIENT IS ASLEEP. THEY WILL CALL BACK LATER. NO ACUTE DISTRESS AT THIS TIME.
[2019-01-09 17:29] VITALS: BP 101/57
--- NOTE | 2019-01-09 19:06 | NUR ---
PATIENT COMPLAINED OF BLEACH SMELL WAS MAKING HER SICK. SUPERVISOR DYER WAS CLEANING THE ROOM MOVED HER TO ANOTHER ROOM INDICATED. SHE HAS BEEN COMPLAINING THAT SHE IS STRESSED OUT ALL DAY AND NO ONE CARING FOR HER. BUT SHE IN FACT WAS SLEEPING ALL DAY. SHE WOKE TO EAT AND THEN BACK TO SLEEP.
--- NOTE | 2019-01-09 19:45 | NUR ---
RECEIVED PT FROM DAY SHIFT RN. PT IS AA&O X 4 AND ABLE TO FOLLOW COMMANDS. PT DENIES CHEST PAIN OR SHORTNESS OF BREATH AT THIS TIME ON ROOM AIR. THERE ARE NO USE OF ACCESSORY MUSCLES OR LABORED BREATHING ON ASSESSMENT. PT DENIES NAUSEA AT THIS TIME. SAFETY MEASURES IN PLACE. CALL LIGHT WITHIN REACH. WILL CONTINUE TO MONITOR.
[2019-01-09 21:57] VITALS: BP 100/58
--- NOTE | 2019-01-10 05:18 | NUR ---
PT SLEPT THROUGHOUT THE NIGHT. NO SOB OR CHEST PAIN NOTED THROUGHOUT THE SHIFT. PT CURRENTLY RESTING IN BED. NO USE OF ACESSORY MUSCLES OR LABORED BREATHING ON ASSESSMENT. NO SIGNIFICANT CHANGES NOTED THROUGHOUT THE NIGHT. SAFETY MEASURE ARE IN [place]. CALLL LIGHT IS WITHIN REACH. WILL CONTINUE TO MONITOR.
[2019-01-10 06:16] VITALS: BP 96/53
--- NOTE | 2019-01-10 06:23 | NUR ---
PT PULLED OUT HER IV. REPLACED WITH 22G LFA IV. PT TOLERATED WELL.
--- NOTE | 2019-01-10 06:25 | NUR ---
PT PULLED OUT HER IV. REPLACED WITH LEFT UPPER ARM 22G. PT TOLERATED WELL.
[2019-01-10 06:54] LABS: CALCIUM 9.5 mg/dL (8.5-10.1); CARBON DIOXIDE 21.5 mmol/L (21-32); CREATININE SERUM 1.6 mg/dL (0.6-1.0); POTASSIUM SERUM 4.8 mmol/L (3.5-5.1)
--- NOTE | 2019-01-10 07:04 | NUR ---
RECEIVED BEDSIDE REPORT FROM PATTERNMAKER PLASTER NURSE. PATIENT IS STABLE, RESTING COMFORTABLY IN BED. NO APPARENT SIGNS OF PAIN, SOB, OR RESPIRATORY DISTRESS. IV INFUSING WELL INTO THE LEFT UPPER ARM, NO REDNES NOTED. SCD'S IN PLACE. BED IN LOW POSITION, SAFETY PRECAUTIONS IN PLACE.
[2019-01-10 07:38] LABS: BASOPHIL % 1.8 % (0-2); PLATELET COUNT 205 x10^3mcL (130-400)
[2019-01-10 07:40] LABS: RED CELL DISTRIBUTION WIDTH 16.4 % (11.5-14.5)
--- NOTE | 2019-01-10 08:45 | NUR ---
ADMINISTERED MORNING MEDICATION. PATIENT TOLORATED WELL. PATIENT IS STABLE, RESTING COMFORTABLY IN BED, WATCHING TELEVISION. IV TO THE LEFT UPPER ARM INFUSING WELL, NO REDNESS NOTED. SCD'S IN PLACE. CALL LIGHT WITHIN REACH. PATIENT DENIES OTHER NEEDS AT THIS TIME. BED IN LOW POSITION. PATIENT DENIES OTHER NEEDS AT THIS TIME. SAFETY [RECAUTIONS IN PLACE.
[2019-01-10 09:06] VITALS: BP 85/40
--- NOTE | 2019-01-10 09:29 | NUR ---
CONTACTED DR LANIER TO NOTIFY OF LOW BP 85/40 MAP 63 HR 73. HE GAVE TELEPHONE ORDER FOR 500ML BOLUS OF NS ONCE.
--- NOTE | 2019-01-10 09:51 | NUR ---
ADMINISTERED NS BOLUS PER EMAR. PATIENT TOLORATING WELL. DENIES PAIN, SOB, DIZZINESS, N/V. NO APPARENT SIGNS OF ALOC. PATIENT IS RESTING COMFORTABLY IN BED WATCHING TELEVISION. SAFETY PRECATIONS IN PLACE. PATIENT DENIES OTHER NEEDS AT THIS TIME.
--- NOTE | 2019-01-10 11:11 | NUR ---
PATIENT IS BACK IN BED AFTER UP TO RESTROOM FOR VOID. PATIENT TOLORATED WELL, NO APPARENT SIGNS OF PAIN OR SOB. PATIENT DENIES DIZZINESS WITH AMBULATION. PATIENT DENIES OTHER NEEDS AT THIS TIME. SAFETY PRECAUTIONS IN PLACE.
--- NOTE | 2019-01-10 12:16 | NUR ---
PATIENTIS RESTING COMFORTABLY INBED. PATIENT DENIES OTHER NEEDS AT THIS TIME. CALL LIGHT WITH IN REACH. SAFETY PRECAUTIONS IN PLACE. QUESTIONS AND CONCERNS ADDESSED.
[2019-01-10 13:15] VITALS: BP 92/56
--- NOTE | 2019-01-10 14:28 | NUR ---
PATIENT IS RESTING COMFORTABLY IN BED. NO APPARENT SIGNS OF PAIN OR RESPIRATORY DISTRESS. PATIENT DENIES OTHER NEEDS AT THIS TIME. SAFETY PRECAUTIONS IN PLACE.
--- NOTE | 2019-01-10 16:18 | NUR ---
PATIENT IS C/O BACK PAIN. ADMINISTERED MEDICATION PER EMAR. PATIENT DENIES OTHER NEEDS AT THIS TIME. SAFETY PRECAUTIONS IN PLACE.
--- NOTE | 2019-01-10 17:25 | NUR ---
REEVALUATED EFFECTIVENESS OF PAIN MEDICATION. PATIENT STATES MEDICATION IS EFFECTIVE AND RATES PAIN AT A 2/10. NO OTHER NEEDS AT THIS TIME. SAFETY PRECAUTIONS IN PLACE.
--- NOTE | 2019-01-10 18:18 | NUR ---
PATIENT IS STABLE RESTING COMFORTABLY IN BED. NO APPARENT SIGNS OF NAUSEA OR VOMITING, PATIENT DENIES PAIN AT THIS TIME. IV TO THE LEFT UPPER ARM IS INFUSING NS AT 100 ML/HR. NO REDNESS OR SIGNS OF INFILTRAION NOTED. WILL ENDORSE CARE TO AMMONIA BOX TENDER NURSE.
--- NOTE | 2019-01-10 19:25 | NUR ---
ENDORSED CARE TO COMPLIANCE QUALITY PERFORMANCE ANALYST NURSE.
[2019-01-10 19:55] VITALS: BP 95/53
--- NOTE | 2019-01-10 19:55 | NUR ---
RECEIVED PT IN BED AWAKE AND WATCHING TV. SHE IS ALERT AND ORIENTED X4. NO C/O HEADACHE AND DIZZINESS. NO SOB ON ROOM AIR. BOWEL SOUNDS ACTIVE. SHE HAS NO C/O ABDL PAIN. SHE DENIES N/V. W/ IVF NS AT 100 CC/HR VIA LT UPPER ARM. CALL LIGHT W/IN REACH.
[2019-01-10 20:59] VITALS: BP 95/53
--- NOTE | 2019-01-10 23:03 | NUR ---
PT C/O PAIN ALL OVER HER BODY 03/27. NORCO 10/325 MG PO GIVEN.
--- NOTE | 2019-01-11 02:00 | NUR ---
PT APPEARS TO BE SLEEPING COMFORTABLY. NO S/S OF RESP. DISTRESS.
--- NOTE | 2019-01-11 05:11 | NUR ---
PT SLEPT AT LONG INTERVALS. SHE REMAINS ALERT AND ORIENTED X4. SHE WAS MEDICATED FOR GENERALIZED BODY PAIN X1 W/ RELIEF. SHE AMBULATES TO THE RESTROOM W/ SLOW BUT STEADY GAIT. IVF NS INFUSING WELL AT 100 CC/HR VIA LT UPPER ARM. ALL NEEDS ATTENDED TO.
[2019-01-11 05:13] VITALS: BP 89/56
--- NOTE | 2019-01-11 06:33 | NUR ---
PT C/O GENERALIZED BODY PAIN 02/24. NORCO 10/325 MG PO GIVEN.
--- NOTE | 2019-01-11 06:40 | NUR ---
INFORMED DR. LANIER REGARDING BP OF 89/56 AND THAT PT IS FEELING VERY DIZZY. ORDER RECEIVED.
--- NOTE | 2019-01-11 07:15 | NUR ---
RECEIVED PATIENT ASLEEP, AROUSABLE. STATED BACK PAIN IS BETTER /10. TELE #24 NOTED. IV TO GISSELLE INTACT AND INFUSING WELL. POC EXPLAINED. CALL LIGHT WITHIN REACH.
--- NOTE | 2019-01-11 07:18 | NUR ---
PT NOW APPEARS TO BE RESTING MORE COMFORTABLY AFTER TAKING NORCO. ENDORSED PT TO AM NURSE.
[2019-01-11 07:29] LABS: CARBON DIOXIDE 26.6 mmol/L (21-32); CREATININE SERUM 1.5 mg/dL (0.6-1.0); POTASSIUM SERUM 4.7 mmol/L (3.5-5.1)
--- NOTE | 2019-01-11 07:53 | NUR ---
PATIENT SAT UP IN BED EATING HER BREAKFAST, DID'NT NEED ANYTHING AT THIS TIME. NS 500ML BOLUS INFUSING AT THIS TIME ORDERED. CALL LIGHT WITHIN REACH.
[2019-01-11 08:00] LABS: PLATELET COUNT 194 x10^3mcL (130-400); RED CELL DISTRIBUTION WIDTH 16.8 % (11.5-14.5)
--- NOTE | 2019-01-11 08:50 | NUR ---
500ML NS BOLUS COMPLETED BP 96/68, MAP 77 CONT TO MONITOR. MAINTENANCE IVF INFUSING AT 100ML/HR. NEEDS MET. CALL LIGHT WITHIN REACH.
[2019-01-11 09:38] VITALS: BP 96/64
--- NOTE | 2019-01-11 09:39 | NUR ---
PATIENT CALL INFORM NURSE WHEN SHE GOT UP AND GOT DIZZINESS, INSTRUCT PATIENT NOT TO GET UP W/O ASSISTANCE, OFFERED BSC. MEDS PO GIVEN. CONT TO MONITOR.
--- NOTE | 2019-01-11 12:06 | NUR ---
PATIENT RESTING IN BED NO COMPLAIN, NEEDS ANTICIPATED, CALL LIGHT WITHIN REACH.
--- NOTE | 2019-01-11 12:46 | NUR ---
Initial Nutrition Assessment: 224T/B KATHRYN COOK IA HR Dx: symptomatic hyponatremia, intractable vomiting PMHx: anxiety, depression, hypothyroidism PSHx: none Labs: NA 135L, CREAT 1.5H Meds: [place], synthyroid, zofran Diet: Regular PO Intake: (01/10) 60% Ht: 160.02cm (63") Wt: 70.3 kg (155#) BMI: 27.5 kg/m2 Bed scale:156# IBW: 115# (52 kg) %IBW: 134 UBW: 155# Age: 53/F Food Allergies: Tomato Skin: Intact Yoseph: 20 Edema: 1+ edema to BUE/BLE GI: Last BM: 01/10 Trigger: appears underweight/malnourished, poor PO > 3d Pt is a 53 yo female h/o psych d/o multiple admissions for recurring hyponatremia and rhabdomylisis, presented to the ED with generalized weakness, not tolerating diet, seen and evaluated at the ED. multiple work ups done, again found to have hyponatremia. RDN Visit (01/11): Pt was alert and she said that she experiences nausea sometime but ate most of her breakfast this morning. Pt is willing to consume ensure enlive supplement. Problem with: N/V/D/C: nausea sometimes Problems with: Chewing/Swallowing: no Current appetite: good Recent wt change: none %wt change: none Vitamin/Supplement use: none Special diet at home: regular Physical activity: walking Nutrition education given: Importance of nutrition and adequate PO was emphasized. Disease specific diet education was not applicable at this time. Food-drug interactions: none; Education given: no Estimated Nutritional Needs Based on body weight 70.3 kg Energy: 1800-2100kcal/d (25-30 kcal/kg) Protein: 70-84 g/d (1.0-1.2 g/kg)- maintenance of LBM Fluid: 3947-6259 ml/d (1 ml/kcal) or per doctor Nutrition Diagnosis 1. Inadequate oral intake related to medical condition as evidenced by documented PO OF <75%. Intervention 1. Recommend Ensure Enlive /daily 2. Recommend continuing regular diet at this time. Monitor/Evaluate Goal: PO intake at least 75% of estimated needs Monitor: PO intake, Labs, GI function F/U in 3-5 days as moderate risk 01/14-01/16
--- NOTE | 2019-01-11 12:46 | NUR ---
1. Recommend Ensure Enlive /daily 2. Recommend continuing regular diet at this time.
--- NOTE | 2019-01-11 13:06 | NUR ---
PATIENT RESTING IN BED WATCHING TV, C/O 8/10 BACK PAIN. NORCO 10/325MG PO ADMINISTERED. BP 91/54, MAP 67. HR 66 CONT TO MONITOR.
[2019-01-11 13:57] VITALS: BP 93/46
--- NOTE | 2019-01-11 14:17 | NUR ---
DR. LANIER ROUND WAS INFORM PATIENT SBP LOW 90'S AND ALREADY RECEIVED NS BOLUS. PER DR. LANIER WILL CONSULT WITH CARDIOLOGY. PATIENT SLEEPING AT THIS TIME. NO DISTRESS NOTED. CALL LIGHT WITHIN REACH.
--- NOTE | 2019-01-11 14:47 | NUR ---
DR. EGAN SEEN PATIENT FOR CONSULT AND ORDER EKG, RT AT BEDSIDE PERFORM EKG. PATIENT ACCIDENTLY GUERA OUT IV TO GISSELLE WHILE TRY TO SETTLE DOWN IN BED. WILL RESTART NEW IV WHEN TECH DONE WITH EKG.
--- NOTE | 2019-01-11 15:30 | NUR ---
NEW IV STARTED TO LFA #22G WITH GOOD BLOOD RETURN AND SECURED, PATIENT TOLERATED WELL. CONT IVF AT 100ML/HR ORDERED. CALL LIGHT WITHIN REACH.
--- NOTE | 2019-01-11 16:40 | NUR ---
DR. EGAN WAS INFORM BP 89/48, MAP [address] EGAN WILL INCREASE SYNTHROID AND OTHER MEDS TO SUPPORT BP. CONT TO MONITOR.
[2019-01-11 16:52] VITALS: BP 89/48
--- NOTE | 2019-01-11 17:17 | NUR ---
PATIENT RESTING IN BED NO COMPLAIN. NO DISTRESS NOTED. FLORINEF 0.2MG PO GIVEN ORDERED. NEEDS ANTICIPATED. CALL LIGHT WITHIN REACH.
--- NOTE | 2019-01-11 18:24 | NUR ---
PATIENT RESTING IN BED NO COMPLAIN, WATCHING TV. CALL LIGHT WITHIN REACH.
--- NOTE | 2019-01-11 19:18 | NUR ---
PT RECEIVED A/O X4, ABLE TO MAKE NEEDS KNOWN. TELE #24, DENIES ANY CP/PRESSURE. BREATHING IS EVEN AND UNLABORED ON RA, DENIES SOB, NO RESP DISTRESS NOTED. ABD SOFT AND ROUND, DENIES N/V. VOIDS FREELY, BRP. GENERALIZED WEAKNESS. SKIN IS WARM AND DRY, INTACT. PT DENIES ANY PAIN AT THIS TIME. IVF INFUSING WELL TO LFA, SITE FREE FROM REDNESS OR SWELLING. BED IN LOWEST SETTING, SIDE RAILS UP X2, CALL LIGHT WITHIN REACH. NO ACUTE DISTRESS NOTED. WILL CONT TO MONITOR.
--- NOTE | 2019-01-11 20:32 | NUR ---
PT'S BP-85/40, HR-71. DR LANIER CALLED, MESSAGE WITH CALLBACK NUMBER LEFT. AWAITING CALL BACK AT THIS TIME.
--- NOTE | 2019-01-11 20:43 | NUR ---
PT C/O 03/27 BACK PAIN, PRN NORCO GIVEN ORDERED. NO ACUTE DISTRESS NOTED. CALL LIGHT WITHIN REACH. WILL CONT TO MONITOR.
[2019-01-11 21:39] VITALS: BP 85/40
[2019-01-11 23:46] VITALS: BP 97/54
--- NOTE | 2019-01-11 23:46 | NUR ---
NO CALL BACK RECEIVED AT THIS TIME. PT'S BP RECHECKED-97/54, HR-73. PT IN NO ACUTE DISTRESS. WILL CONT TO MONITOR.
--- NOTE | 2019-01-12 00:20 | NUR ---
PT RESTING IN BED, AWAKE AND WATCHING TV. BREATHING IS EVEN AND UNLABORED, NO RESP DISTRESS NOTED. PT DENIES HAVING ANY PAIN AT THIS TIME. IVF INFUSING WELL, SITE FREE FROM REDNESS OR SWELLING. NO ACUTE DISTRESS NOTED. CALL LIGHT WITHIN REACH. WILL CONT TO MONITOR.
--- NOTE | 2019-01-12 06:05 | NUR ---
PT SLEPT WELL THROUGHOUT THE EVENING. BREATHING IS EVEN AND UNLABORED, NO RESP DISTRESS NOTED. PT DENIES HAVING ANY PAIN AT THIS TIME. IVF INFUSING WELL TO LFA, SITE FREE FROM REDNESS OR SWELLING. NO ACUTE CHANGES ENCOUNTERED DURING SHIFT. ALL NEEDS ANTICIPATED AND MET. CALL LIGHT WITHIN REACH. WILL ENDORSE CARE TO AM NURSE.
[2019-01-12 06:51] VITALS: BP 91/52
--- NOTE | 2019-01-12 07:14 | NUR ---
PT IN NO ACUTE DISTRESS. CONTINUITY OF CARE ENDORSED TO IAM SHEEHAN. ALL QUESTIONS AND CONCERNS ADDRESSED.
--- NOTE | 2019-01-12 07:30 | NUR ---
RECEIVED PATIENT AWAKE/ALERT BACK FROM BRP, DENIES PAIN AT THIS TIME. TELE #24 NOTED. IV TO LFA INTACT AND INFUSING WELL. POC EXPLAINED. CALL LIGHT WITHIN REACH.
[2019-01-12 07:43] LABS: BASOPHIL % 1.1 % (0-2); PLATELET COUNT 182 x10^3mcL (130-400)
[2019-01-12 07:49] LABS: RED CELL DISTRIBUTION WIDTH 16.7 % (11.5-14.5)
[2019-01-12 07:56] LABS: CALCIUM 9.3 mg/dL (8.5-10.1); CARBON DIOXIDE 24.1 mmol/L (21-32); CREATININE SERUM 1.3 mg/dL (0.6-1.0); POTASSIUM SERUM 4.5 mmol/L (3.5-5.1)
--- NOTE | 2019-01-12 08:24 | NUR ---
PATIENT LAYING IN BED TECH AT BEDSIDE PERFORM ECHO, ASA AND NORCO 1 TAB PO ADMINISTERED FOR C/O 810 BACK PAIN. BP 102/45 HR 71. NEEDS MET. CALL LIGHT WITHIN REACH.
--- NOTE | 2019-01-12 09:30 | NUR ---
PATIENT RESTING IN BED CALM WATCHING TV. FLORINEF PO ADMINISTERED. PATIENT REPORT PAIN IS BETTER 3/10. PATIENT WANT TO KNOW IF DOCTOR'S COMING, INFORM PATIENT DR. LANIER IS HERE AND WILL SEE YOU SOON. CALL LIGHT WITHIN REACH.
[2019-01-12 09:44] VITALS: BP 102/48
--- NOTE | 2019-01-12 10:26 | NUR ---
PATIENT IN BED AWAKE/ALERT; NO COMPLAIN. MIDODRINE 5MG PO ADMINISTERED ORDERED. NEEDS MET. CALL LIGHT WITHIN REACH.
--- NOTE | 2019-01-12 12:36 | NUR ---
PATIENT SAT UP IN BED EATING HER LUNCH NO COMPLAIN. NEEDS MET. CALL LIGHT WITHIN REACH.
--- NOTE | 2019-01-12 12:54 | NUR ---
NEW BAG IV REPLACED. PATIENT SAT UP IN BED STILL EATING HER LUNCH. NEEDS ANTICIPATED. CALL LIGHT WITHIN REACH.
[2019-01-12 13:06] VITALS: BP 103/61
--- NOTE | 2019-01-12 15:15 | NUR ---
PATIENT SLEEPING AT THIS TIME, NO DISTRESS NOTED. CALL LIGHT WITHIN REACH.
[2019-01-12 17:07] VITALS: BP 88/52; BP 92/54
--- NOTE | 2019-01-12 17:45 | NUR ---
PATIENT RESTING IN BED C/O BACK PAIN 02/24; NORCO 1 TAB PO GIVEN, ALBUMIN 25% IV INFUSING TO LFA PER DR. EGAN ORDERED, BP 92/54. CONT TO MONITOR. DINNER TRAY DELIVERED TO PATIENT BY KITCHEN. CALL LIGHT WITHIN REACH.
--- NOTE | 2019-01-12 18:22 | NUR ---
PATIENT RESTING IN BED NO COMPLAIN, WATCHING TV AT THIS TIME. REPORT PAIN IS BETTER 2/10. CONT TO MONITOR.
--- NOTE | 2019-01-12 19:56 | NUR ---
REC'D REPORT FROM IAM SHEEHAN TO ASSUME CARE. PT IS A/O X4, SPEECH CLEAR AND APPROPRIATE. PORTABLE MACHINE SANDER IN PLACE SHOWING NSR. DENIES ANY CP, SYNCOPE, OR DIZZINESS. RESPS E/U ON ROOM AIR. CHEST RISE EQUAL AND SYMMETRICAL. LUNG SOUNDS CTA. ABD FLAT, SOFT, NONTENDER TO TOUCH. BOWEL SOUNDS ACTIVE. DENIES ANY N/V/D. SKIN WARM DRY TO TOUCH. IV TO LFA INTACT AND PATENT, FLUSHED WITH 10CC NS WITHOUT ANY INFILTRATION NOTED. NS INFUSING @ 100ML/HR. PT VOIDS FREELY WITH BRP. AMB WITH STEADY GAIT. INSTRUCTED TO USE CALL LIGHT FOR ANY ASSISTANCE. ALL NEEDS MET AT THIS TIME. WILL CONTINUE TO MONITOR.
[2019-01-12 20:21] VITALS: BP 90/43
--- NOTE | 2019-01-12 23:03 | NUR ---
PT SEEN AWAKE IN BED WATCHING TV. DENIES ANY PAIN OR DISCOMFORT. DENIES ANY N/V AT THIS TIME.
--- NOTE | 2019-01-13 02:30 | NUR ---
PT SEEN AWAKE, AMBULATED TO BATHROOM WITH STEADY GAIT TO VOID.
--- NOTE | 2019-01-13 02:43 | NUR ---
PT WITH C/O 6/10 GEN BODY PAIN. MEDICATED WITH NORCO PRN PER MD ORDER.
[2019-01-13 06:00] VITALS: BP 97/65
--- NOTE | 2019-01-13 07:00 | NUR ---
PHYSICAL THERAPY DAILY NOTES CO-SIGN All documentation done by the Maintenance Mechanic for 01/13/19 has been reviewed. I agree with the documentation. Reviewed/Co-Signed by: Deb Huntley PT Documentation Done by:YANET HYMAN PTA FOR 01/12/19
--- NOTE | 2019-01-13 07:15 | NUR ---
RECEIVED BEDSIDE REPORT FROM EMPLOYMENT SPECIALIST/PROGRAM MANAGER NURSE. PATIENT IS STABLE, NO APPARENT SIGNS OF PAIN, OR SOB. PATIENT IS SLEEPING, ON ROOM AIR. IV INFUSING WELL. NO REDNESS NOTED. SAFETY PRECAUTIONS IN PLACE.
--- NOTE | 2019-01-13 07:50 | NUR ---
PHYSICAL ASSESSMENT COMPLETED, PLEASE SEE PROBLEM FOCUS FOR DETAILS.
[2019-01-13 08:15] VITALS: BP 89/62
--- NOTE | 2019-01-13 08:41 | NUR ---
ADMINISTERED MORNING MEDS. PATIENT STABLE, TOLORATED WELL. PATIENT DENIES OTHER NEEDS AT THIS TIME. SAFETY PRECAUTIONS IN PLACE.
--- NOTE | 2019-01-13 09:09 | NUR ---
PATIENT WAS C/O SOB. SPOT CHECKED OXYGEN SAT. 98% ON ROOM AIR, RESPIRATIONS EVEN DO NOT APPEAR LABORED, ELEVATED HEAD OF BED. PATIENT STATED FELLING BETTER AFTER REPOSITIONING AND DEEP BREATHING EXERCISE. SAFETY PRECAUTIONS IN PLACE.
--- NOTE | 2019-01-13 09:37 | NUR ---
P.T. NOTES UNABLE TO SEE PATIENT TODAY DUE TO C/O HEADACHE, DIZZINESS, AND LOW BP, PER NURSING NO P.T. FOR TODAY.
--- NOTE | 2019-01-13 10:06 | NUR ---
PATIENT IS STABLE RESTING IN BED COMFORTABLY. NO APPARENT SIGNS OF PAIN OR SOB. PATIENT STATES THAT REPOSITIONING HELPED BREATHING. DENIES SOB. OXYGEN 98% ON ROOM AIR SPOT CHECKED. PATIENT DENIES OTHER NEEDS AT THIS TIME. SAFETY PRECAUTIONS IN PLACE.
--- NOTE | 2019-01-13 11:43 | NUR ---
PATIENT IS STABLE, FAMILY AT BEDSIDE. PATIENT STATES BREATHING IS BETTER AND DENIES SOB AT THIS TIME. PATIENT DENIES OTHER NEEDS AT THIS TIME. SAFETY PRECAUTIONS IN PLACE.
--- NOTE | 2019-01-13 13:28 | NUR ---
ADMINISTERED AFTERNOON MEDICATION. PATIENT RESTING COMFORTABLY IN BED. PATIENT DEINES PAIN, SOB, OR DIZZINESS. IV INFUSING WELL. SCD'S IN PLACE. CALL LIGHT WITHIN REACH. QUESTIONS AND CONCERNS ADDRESSED. SAFETY PRECAUTIONS IN PLACE.
--- NOTE | 2019-01-13 15:27 | NUR ---
CALLED DR LANIER TO MAKE HIM AWARE OF LOW BP. DR LANIER IS AWARE NO FURTHER ORDERS AT THIS TIME.
--- NOTE | 2019-01-13 15:43 | NUR ---
PATIENT IS STABLE NO APPARENT SIGNS OF PAIN OR SOB. PATIENT AMBULATED TO RESTROOM WITH ASSISSTANCE. PATIENT STATED FEELING SOME DIZZINESS WHEN AMBULATING. BACK IN BED NOW. DIZZINESS HAS SUBSIDED. IV INFUSING NS AT 100ML/HR WELL INTO THE LFA. NO REDNESS NOTED. PATIENT DENIES OTHER NEEDS AT THIS TIME. SAFETY PRECAUTIONS MAINTAINED.
--- NOTE | 2019-01-13 17:18 | NUR ---
ADMINISTERED MEDICATION PER EMAR. PATIENT IS STABLE NO APPARENT SIGNS OF APIN, SOB, OR RESPIRATORY DISTRESS. PATIENT DENIES N/V, DIZZINESS. PATIENT DENIES OTHER NEEDS AT THIS TIME. SAFETY PRECAUTIONS IN PLACE.
[2019-01-13 18:03] VITALS: BP 92/55
--- NOTE | 2019-01-13 18:39 | NUR ---
PATIENT IS STABLE, NO APPARENT SIGNS OF SOB, RESPIRATORY DISTRESS, AND PAIN. PATIENT DENIES N/V. RESPIRATIONS EVEN NOT LABORED. IV TO THE LEFT FOREARM IS INFUSING WELL NS AT 100ML/HR. SCD'S AT BEDSIDE. PATIENT DENIES OTHER NEEDS AT THIS TIME. WILL ENDORSE CARE TO SHELLS INSPECTOR NURSE.
--- NOTE | 2019-01-13 19:24 | NUR ---
ENDORSED CARE TO ANGÉLICA SHEEHAN.
--- NOTE | 2019-01-13 19:58 | NUR ---
RECEIVED PATIENT IN BED AWAKE, ALERT AND ORIENTED WITH NO C/O PAIN AND DISCOMFORT AT THIS TIME. BREATHING EASY AND NONLABOR SATTING AT 98% RA, TELE# 24 NSR ON MONITOR DENIES CHESTPAIN. ABDOMEN ROUND AND NONTENDER WITH ACTIVE BS, IV TO LFA INTACT AND INFUSING WELL. WILL CONTINUE TO MONITOR. CALL LIGHT WITHIN REACH.
[2019-01-13 20:34] VITALS: BP 90/48
--- NOTE | 2019-01-13 21:49 | NUR ---
C/O BODYACHE NORCO 1 TAB PO GIVEN PRESCRIBED. WILL CONTINUE TO MONITOR.
--- NOTE | 2019-01-14 00:26 | NUR ---
APPEARS SLEEPING AT THIS TIME AFTER PAIN MEDS WAS GIVEN. WILL CONTINUE TO MONITOR.
--- NOTE | 2019-01-14 05:06 | NUR ---
SLEPT FAIRLY C/O GENERALIZED BODY PAIN X1 THE ENTIRE SHIFT AND MEDICATED PRESCRIBED. ALL NEEDS ATTENDED.
[2019-01-14 05:32] VITALS: BP 90/50
--- NOTE | 2019-01-14 08:00 | NUR ---
REDEIVE PATIE NFORM TAPE CUTTING MACHINE OPERATOR AND PATIENT IS ALERT AND ORIENTED TIMES FOUR. PATEINT AHS BEEN WITH DIMINISHE DBREATH SOUND SBUT NO COUGH OR NASAL CONGESTION NOETD. VITALS AT THIS TIME AT 97.7, 70, 18, 90/50, 98%ON ROOM AIR. 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 PATIEN THAS CHRONIC BACK PAIN AND HAS BEEN WITH KIDNEY INSUFFICIENCY, DEPRESSIO AND HYPOTENSION. PATIENT AHS BEEN NTOE DTO HAVE MULTIPL ALLERGIES AND [facility] HAS SULFA, ATIVAN, PROMETHAZIN AND TOMATOES FOR STARTERS. PATIEN TAHS BEEN WITH IV FLUIDS TAT 50CC PER HOUR. SHE HAS LOW BP SINCE ADMISSION. WILL CONTINUE TO MONITOR IDNICATED.
[2019-01-14 09:28] VITALS: BP 97/48
--- NOTE | 2019-01-14 10:06 | NUR ---
ADVISED THE DR OF PATIENT WEAKNESS AND NEAR FALL THIS AM. PATIENT HAS BEEN AMBUALATORY PRIOR AND HAS BEEN WITH SELF CARE BUT INTERMITTANTLY SHE HAS GENERAL WEAKNSS AND UNSTEADY GATE. NO FOALL NOTED. PATIENT WAS GIVEN NORCO PER HER REQUEST FOR PAIN MEDICATIN AND HAS APPARENT CHRONIC PAIN TO THE BACK. WILL MOPNITO RFOR EFFECTIVENESS.
--- NOTE | 2019-01-14 12:54 | NUR ---
PATIENT RESTING AT THIS TIME. SHE WANTS TO KNOW IT SHE IS GOING TO BE DISCHARGED.
[2019-01-14 13:05] VITALS: BP 104/48
[2019-01-14 13:32] VITALS: BP 90/20
--- NOTE | 2019-01-14 14:20 | NUR ---
PHYSICAL THERAPY DAILY NOTES CO-SIGN All documentation done by the Business Intelligence Etl Developer for 01/14/19 has been reviewed. I agree with the documentation. Reviewed/Co-Signed by: Deb Huntley PT Documentation Done by:YANET HYMAN PTA FOR 01/13/19
--- NOTE | 2019-01-14 14:30 | NUR ---
PHYSICAL THERAPY NOTE ATTEMPTED FOR SCHEDULE PHYSICAL THERAPY SESSION. PATIENT REFUSED DUE TO DIZZINESSS AT THIS TIME
--- NOTE | 2019-01-14 15:47 | NUR ---
PATIENT OFFERED SCRUB PANTS AND A CAB WAS CALLED FOR PATEINT TO BE TAKEN HOME. TRANSFER TO THE LOBBY WITH STAFF AND CAB FOR PICK INDICATED. APTEINT [facility]CHA[facility]GE [facility] PSRESRIPTIONS AND ALL BELONGINGS. NO DISTRESS AT TIME OF DISCHARGE.
== END 2019-01-14 15:06 | disposition home or self-care (01) | DRG 469 ==
LOC: ED 11:31 → MU 13:26 → DU 13:26 → MU 15:06 → DU 16:04
PROVIDERS: Emergency Medicine; ADMIT Internal Medicine
DX: N17.9 Acute kidney failure, unspecified (principal); I95.9 Hypotension, unspecified; M62.82 Rhabdomyolysis; E27.1 Primary adrenocortical insufficiency; E87.1 Hypo-osmolality and hyponatremia; N18.3 Chronic kidney disease, stage 3 (moderate); R63.0 Anorexia; E03.9 Hypothyroidism, unspecified; G89.29 Other chronic pain; M54.9 Dorsalgia, unspecified; F41.8 Other specified anxiety disorders; D63.8 Anemia in other chronic diseases classified elsewhere; Z68.26 Body mass index [BMI] 26.0-26.9, adult; Z88.6 Allergy status to analgesic agent; Z88.2 Allergy status to sulfonamides; Z88.8 Allergy status to other drugs, medicaments and biological substances; Z91.018 Allergy to other foods; Z88.4 Allergy status to anesthetic agent; Z98.891 History of uterine scar from previous surgery
CPT/HCPCS: 84439; 97110-GP; G0480; J2405; J7030; J7040; P9047

== ENCOUNTER 2019-01-25 10:21 | Emergency (ER) | payer OTHER ==
[~2019-01-25] VITALS: Ht 165.1 cm; Wt 77.1 kg
[2019-01-25 10:42] VITALS: Ht 165.1 cm; Wt 77.1 kg
[2019-01-25 11:29] LABS: BASOPHIL % 0.9 % (0-2); PLATELET COUNT 263 x10^3mcL (130-400)
[2019-01-25 11:30] LABS: CREATININE SERUM 1.4 mg/dL (0.6-1.0); POTASSIUM SERUM 4.1 mmol/L (3.5-5.1)
[2019-01-25 11:35] LABS: ALBUMIN 4.7 g/dL (3.4-5.0); BILIRUBIN TOTAL 0.8 mg/dL (0.20-1.00)
[2019-01-25 11:36] LABS: RED CELL DISTRIBUTION WIDTH 16.1 % (11.5-14.5)
[2019-01-25 11:38] LABS: microscopic required? YES; urine erythrocyte 3+ (NEGATIVE)
[2019-01-25 11:40] LABS: TOTAL PROTEIN, SERUM 9.6 g/dL (6.4-8.2)
[2019-01-25 13:35] VITALS: BP 99/67
== END 2019-01-25 13:35 | disposition home or self-care (01) ==
LOC: ED 10:21
PROVIDERS: Specialist
DX: R11.10 Vomiting, unspecified (principal); R19.7 Diarrhea, unspecified; F32.9 Major depressive disorder, single episode, unspecified; F41.9 Anxiety disorder, unspecified; E78.00 Pure hypercholesterolemia, unspecified; G89.29 Other chronic pain; M54.9 Dorsalgia, unspecified; M25.552 Pain in left hip; M25.551 Pain in right hip; Z88.2 Allergy status to sulfonamides; Z88.1 Allergy status to other antibiotic agents; Z88.8 Allergy status to other drugs, medicaments and biological substances; Z91.018 Allergy to other foods; Z86.39 Personal history of other endocrine, nutritional and metabolic disease; Z98.890 Other specified postprocedural states
CPT/HCPCS: J2405; J7030

== ENCOUNTER 2019-02-19 11:18 | Inpatient (IN) | payer OTHER ==
[~2019-02-19] VITALS: Ht 157.5 cm; Wt 63.0 kg
[~2019-02-19 11:18] MED LIST changes: -ASPIRIN81 MG PO; -SYNTHROID0.112 MG
[2019-02-19 11:29] VITALS: Ht 157.5 cm; Wt 63.0 kg
--- NOTE | 2019-02-19 11:48 | NUR ---
PATIENT BIBA [facility] FOR C/O GENERALIZED BODY ACHES, WEAKNESS, NAUSEA, VOMITTING, AND BODY CRAMPS FOR THE PAST 2 DAYS. STS THAT SHE VOMITTED 12X I THE PAST 2 DAYS. PATIENT ABLE TO AMBULATE FROM [facility] TO BEDSIDE. PATIENT AAOX4, PERRLA, [employer] 15, PATIENT ACTING APPROPRIATELY. DR. SALAS AT BEDSIDE PERFORMED MSE
[2019-02-19 11:59] LABS: BASOPHIL % 1.4 % (0-2); PLATELET COUNT 190 x10^3mcL (130-400)
--- NOTE | 2019-02-19 12:02 | NUR ---
PATIENT STS UNABLE TO URINATE, STS SHE WILL TRY LATER
[2019-02-19 12:16] LABS: ALBUMIN 4.1 g/dL (3.4-5.0); BILIRUBIN TOTAL 0.6 mg/dL (0.20-1.00); CALCIUM 9.6 mg/dL (8.5-10.1); CARBON DIOXIDE 30.1 mmol/L (21-32); CREATININE SERUM 1.5 mg/dL (0.6-1.0)
[2019-02-19 12:17] LABS: TOTAL PROTEIN, SERUM 8.7 g/dL (6.4-8.2)
[2019-02-19 12:20] LABS: RED CELL DISTRIBUTION WIDTH 15.4 % (11.5-14.5)
--- NOTE | 2019-02-19 12:20 | NUR ---
PATIENT REQUESTS TO URINATE. WAS ABLE TO AMBULATE FROM BED TO BEDSIDE COMMODE. STEADY GAIT NOTED. PATIENT ABLE TO THEN AMBULATE FROM COMMODE BACK TO BEDSIDE.
--- NOTE | 2019-02-19 12:46 | NUR ---
PT RESTING AT BEDSIDE IN NAD
--- NOTE | 2019-02-19 14:20 | NUR ---
REPORT OFF TO AGUILA GUO
--- NOTE | 2019-02-19 14:40 | NUR ---
RECEIVED PT VIA [facility] FROM E/D, ACCOMPANIED BY RN AND TRANSPORTER. PT A/A/O X 4, CALM, COOPERATIVE, HAS A FLAT AFFECT. GENERALIZED WEAKNESS, BUT ABLE TO AMBULATE W/ SLOW, STEADY GAIT FROM GUERNEY TO BED; WALKER/MOTORIZED W/C @ HOME; FALL RISK PROTOCOL IN PLACE; C/O INTERMITTENT GENERALIZED BODY ACHE 8/10, EXACERBATED BY MOVEMENT AND WALKING, RELIEVED BY REST AND PAIN MEDICATIONS. ON TELE # 2, NSR, HR 63, DENIES CHEST PAIN OR DISCOMFORT AT THIS TIME. [place] RADIAL AND PEDAL PULSES PRESENT, GENERALIZED BODY EDEMA +1, CAP REFILL < 3 SECS, HAS A "RAMIREZ FACE" FEATURE, SCD BY BEDSIDE. NO ACUTE RESPIRATORY DISTRESS NOTED. ABD SOFT, ROUND, NON-TENDER, NORMOACTIVE BOWEL SOUNDS X 4 QUADS, LAST BM 02/19/19, FORMED, +N/V. IV SITE RH 22G, CDI. ORIENTED PT TO ROOM, BED CONTROLS, CALL LIGHT SYSTEM. SIDE RAILS UP X 2, BED IN LOW POSITION. WILL ENDORSE TO AGUILA GUO.
[2019-02-19 14:59] VITALS: BP 102/60
--- NOTE | 2019-02-19 15:00 | NUR ---
PATIENT RECEIVED ALERT AND ORIENTED TIMES FOUR. JAIR HAS BEEN USING A ELECTRIC WHEELCHAIR AT HOME AND HAS A HISTORY OF RHASOMYLISIS AND HAS BEEN ADMITTED IN NOVEMBER FOR SIMULAR SYMPTOMS. AT THIS TIME SHE HAS NOTED POTATSSIUMOF 6.0 AND RECIEVED THE DOSIN IN THE ER ALONG WITH A BOLUS AND PATIENT HAS TOLERATED WELL. LUNGS ARE DIMINSIHED BUT CLEAR AND NO COMPLAINT SO FCOUGH OR CONGESTION. PATIENT HAS EDEMA TO THE LOWER EXTREMITES OF PLUS ONE AND HAS A GENERAL BLOATED APPERANCE. SHE HAS PAIN TO THE [place] AND ON VALIUM AND NORO AT HOME. ON TELE AND WILL STRT IV FLUIDS INDICATED.
--- NOTE | 2019-02-19 16:48 | NUR ---
PATIENT HAS HAD THE ULTRASOUND OF THE ABODMEN AND RESULTS PENDING AT THIS TIME. PATIENT HAS AT BEDSIDE AND SUPPORTIVE WITH CARE. IV INTACT AND CONTINEU DON 100CC PER HOUR. NO REQUEST FOR PAIN MEDICATION OR VALIUM AT THIS TIME. SHE HAS VALIUM GREG GIVEN AT NIGHT TIME.
--- NOTE | 2019-02-19 19:05 | NUR ---
REPORT RECEIVED FROM DAY SHIFT RN. PATIENT WAS SEEN AND IS RESTING COMFORTABLY IN BED. NO DISTRESS NOTED. BREATHING EVEN ON ROOM AIR. NO SOB OR RESP DISTRESS NOTED. NO C/O PAIN. DENIES CHEST PAIN. TELE #2 NSR. C/O MILD NAUSEA, BUT IT'S TOLERABLE AT THIS TIME. IV TO THE RIGHT HAND, 22G, INFUSING WELL. PATENT AND INTACT. NO REDNESS OR SWELLING NOTED. FLAT AFFECT AT TIMES. COMFORT AND SAFETY MEASURES IN PLACE. BED IS LOCKED AND IN THE LOWEST POSITION. SIDE RAILS UP X2. CALL LIGHT IS WITHIN REACH. WILL CONTINUE TO MONITOR.
[2019-02-19 20:33] VITALS: BP 100/49
--- NOTE | 2019-02-19 20:38 | NUR ---
C/O 8/10 GENERALIZED BODY PAIN AND IS REQUESTING NORCO. PRN NORCO WAS ADMINISTERED PRESCRIBED (SEE EMAR). EDUCATED PATIENT ON POTENTIAL COMMON SIDE EFFECTS. PATIENT VERBALIZED UNDERSTANDING. ALSO GAVE PATIENT SALTINE CRACKER AND SANDWICH PER REQUEST. NO DISTRESS NOTED. WILL CONTINUE TO MONITOR AND REASSESS PAIN LEVEL. CALL LIGHT IS WITHIN REACH.
--- NOTE | 2019-02-19 21:08 | NUR ---
BP IS 161/67 (89) AFTER ONE TIME DOSE AMLODIPINE WAS GIVEN BY DAY SHIFT RN. PATIENT DENIES HEADACHE OR ANY OTHER PAIN. NO DISTRESS NOTED. DAUGHTER AT BEDSIDE. WILL CONTINUE TO MONITOR PATIENT. CALL LIGHT IS WITHIN REACH.
--- NOTE | 2019-02-20 01:42 | NUR ---
PATIENT IS RESTING COMFORTABLY IN BED USING HER PHONE. BREATHING IS EVEN AND UNLABORED, NO SOB OR RESP DISTRESS NOTED. NO C/O PAIN. IVF INFUSING WELL. SAFETY MEASURES IN PLACE. CALL LIGHT IS WITHIN REACH. WILL CONTINUE TO MONITOR.
[2019-02-20 05:11] VITALS: BP 97/53
--- NOTE | 2019-02-20 05:37 | NUR ---
PATIENT SLEPT IN LONG INTERVALS THROUGHOUT THE NIGHT. NO ACUTE CHANGES NOTED. FLAT AFFECT STILL NOTED. NO DISTRESS NOTED. BREATHING EVEN AND UNLABORED. NO SOB OR RESP DISTRESS NOTED. IV TO THE RIGHT HAND INFUSING NS WELL AT 100ML/HR. C/O PAIN X1 THROUGHOUT THE NIGHT. MEDICATED WITH PRN NORCO WITH GOOD RELIEF. SAFETY MEASURES IN PLACE. CALL LIGHT IS WITHIN REACH. WILL CONTINUE TO MONITOR AND ENDORSE CARE TO DAY SHIFT RN.
--- NOTE | 2019-02-20 06:06 | NUR ---
C/O 03/27 GENERALIZED BODY PAIN. ADMINSITERED NORCO PRN PRESCRIBED (SEE EMAR). NO DISTRESS NOTED. BREATHING EVEN AND UNLABORED. WILL CONTINUE TO MONITOR AND REASSESS PAIN LEVEL
--- NOTE | 2019-02-20 08:28 | NUR ---
RECEIVED PATIENT ALERT AND ORIENTED TIMES FOUR. PATIENT WITH LOW BP NOTED AND WITH HISTORY OF LOW BP. PATIENT IS WITH GENERAL BLOATED APPEARANCE WITH TRACE TO ONE PLUS. PATIEN TAHS INTACT SKIN AND AT THIS TIME DENIES PAIN. TOLERATED DIET AND FLUIDS AND NO NAUSEA AT THIS TIME.
[2019-02-20 08:30] VITALS: BP 97/48
[2019-02-20 12:12] VITALS: BP 93/54
--- NOTE | 2019-02-20 15:56 | NUR ---
PATIENT DENIES ANY DISTRESS AT THIS TIME.
[2019-02-20 16:15] VITALS: BP 92/43
[2019-02-20 16:41] LABS: ALBUMIN 3.5 g/dL (3.4-5.0); BILIRUBIN TOTAL 0.34 mg/dL (0.20-1.00); CALCIUM 9.4 mg/dL (8.5-10.1); CARBON DIOXIDE 25.2 mmol/L (21-32); CREATININE SERUM 1.6 mg/dL (0.6-1.0); POTASSIUM SERUM 5.5 mmol/L (3.5-5.1); TOTAL PROTEIN, SERUM 7.4 g/dL (6.4-8.2)
--- NOTE | 2019-02-20 16:59 | NUR ---
NO COMPLAINTS OF PAIN AND HAS TOLERATE THE DIET AND FLIUID WITHOUT ANY INCIDENCE OF NAUSEA.
--- NOTE | 2019-02-20 18:55 | NUR ---
CALLED DR LANIER WITH RESULTS OF POTASSIUM OF 5.5 AND AN ORDER FOR VELTASSA RECEIVED OF 8 GM. WILL ENDORSE TO THE ON COMING SHIFT.
--- NOTE | 2019-02-20 20:00 | NUR ---
SHIFT REASSESSMENT DONE.PATIENT ALERT AND ORIENTED.BREATHING EASY.WAS JUST GIVEN MED BY MANNY,PREVIOUS SHIFT TO LOWER K+ LEVEL.GEN WEAKNESS,FALL PRECAUTION,HAS WALKER/MOTORIZED WHEELCHAIR AT HOME.NS AT 10 CC/ HOUR R HAND,PATENT AND INTACT.TELE SR.NO CHEST PAIN.SKIN INTACT.RAMIREZ FACE,NON PITTING EDEMA ALL OVER.VOIDING.PATIENT HAS FLAT AFFECT,NEEDS ANTICIPATED.CALL LIGHT IN REACH.
[2019-02-20 21:39] VITALS: BP 88/50
--- NOTE | 2019-02-21 01:00 | NUR ---
PATIENT AWAKE,WANTING CRACKERS AND GIVEN.IVF INFUSONG.
--- NOTE | 2019-02-21 02:51 | NUR ---
PATIENT UP AND ABOUT,TO RESTROOM,VOIDING AND ALSO HAD BM.
--- NOTE | 2019-02-21 05:48 | NUR ---
AM MED,I AND O MEASURED.PAIN MED ALSO GIVEN.WILL ENDORSE TO NEXT SHIFT.
[2019-02-21 06:44] VITALS: BP 95/48
[2019-02-21 07:01] LABS: BASOPHIL % 0.9 % (0-2); PLATELET COUNT 176 x10^3mcL (130-400)
[2019-02-21 07:04] LABS: CALCIUM 9.7 mg/dL (8.5-10.1); CARBON DIOXIDE 22.5 mmol/L (21-32); CREATININE SERUM 1.5 mg/dL (0.6-1.0)
[2019-02-21 07:06] LABS: RED CELL DISTRIBUTION WIDTH 15.5 % (11.5-14.5)
[2019-02-21 07:09] LABS: POTASSIUM SERUM 5.9 mmol/L (3.5-5.1)
--- NOTE | 2019-02-21 07:25 | NUR ---
RECEIVED PT IN BED. ASSESSED AND DOCUMENTED. DENIES ANY PAIN THIS TIME. NO DISTRESS NOTED. STABLE. SAFTEY PRECAUTIONS ARE IN PLACE. WILL MONITOR.
--- NOTE | 2019-02-21 08:05 | NUR ---
CALLED AND INFORMED HIM ABOUT K=5.9. HE SAID WHEN HE COME AND SEE THE PT HE WILL DECIDE WHAT TO DO. CHARGE NURSE AWARE. PT IS STABLE. NO NAUSEA NOTED.
[2019-02-21 09:07] VITALS: BP 94/46
[2019-02-21 12:52] VITALS: BP 101/52
[2019-02-21 17:46] VITALS: BP 97/53
--- NOTE | 2019-02-21 18:59 | NUR ---
PT WAS C/O GENERALISED BODY PAIN,5/10. MEDICATED PT WITH NORCO PO ORDERED AND REASSESSED NOW, PT SAID HER PAIN IS BETTER,1/10 AND TOLERABLE. STABLE. GAVE REPORT TO SMALL ENGINE SPECIALIST NURSE.
--- NOTE | 2019-02-21 19:05 | NUR ---
PT RECEIVED FROM THE DAY SHIFT RN, PT IS ALERT AND ORIENTED X4, CALM AND COOPERATIVE WITH CARE. PT RIGHT HAND IV NO LONGER PATENT, NEW IV 22 GAUGE PLACED ON LEFT HAND, GOOD BLOOD RETURN AND GOOD FLUSHING. RIGHT HAND IV CATHETER INTACT. SAFETY AND COMFORT MEASURES MAINTAINED, BED IN LOWEST POSITION, CALL LIGHT WITHIN REACH.
[2019-02-21 20:30] VITALS: BP 95/46
--- NOTE | 2019-02-21 23:58 | NUR ---
PT IS AWAKE AND WATCHING TV AT THIS TIME. NO ACUTE DISTRESS NOTED. IV INFUSING AND INTACT, PT HAS NO COMPLAINT OF PAIN AT THIS TIME. SAFETY AND COMFORT MEASURES MAINTAINED, BED IN LOWEST POSITION, CALL LIGHT WITHIN REACH.
[2019-02-22] VITALS (8 sets, daily range): BP systolic 85–102; BP diastolic 40–55
--- NOTE | 2019-02-22 01:41 | NUR ---
PT IS RESTING IN BED WITH EYES CLOSED, NO ACUTE DISTRESS NOTED AT THIS TIME. NO S/S OF PAIN NOTED, PT HAS BEEN ALERT AND ORIENTED X4, CALM AND COOPERATIVE WITH CARE. SAFETY AND COMFORT MEASURES MAINTAINED, BED IN LOWEST POSITION, CALL LIGHT WITHIN REACH.
--- NOTE | 2019-02-22 02:06 | NUR ---
PT COMPLAINING OF PAIN IN GENERALIZED BODY PAIN, PT STATES IT FEELS LIKE MUSCLES ARE CRAMPING AND IT IS A 8/10 PAIN. PRN NORCO GIVEN.
--- NOTE | 2019-02-22 04:43 | NUR ---
PT IS AWAKE AND WATCHING TV AT THIS TIME. PT HAS NO COMPLAINT OF PAIN AT THIS TIME. IV IS INFUSING AND INTACT. SAFETY AND COMFORT MEASURES MAINTAINED, BED IN LOWEST POSITION, CALL LIGHT WITHIN REACH.
--- NOTE | 2019-02-22 05:09 | NUR ---
PT HAS SLEPT IN SHORT INTERVALS THROUGHOUT THE SHIFT. PT HAS BEEN CALM AND COOPERATIVE WITH CARE, PT IS ALERT AND ORIENTED X4, NO ACUTE DISTRESS NOTED AT THIS TIME. SAFETY AND COMFORT MEASURES MAINTAINED, BED IN LOWEST POSITION, CALL LIGHT WITHIN REACH, WILL ENDORSE CONTINUITY OF CARE TO THE ONCOMING RN.
[2019-02-22 06:23] LABS: CALCIUM 9.2 mg/dL (8.5-10.1); CARBON DIOXIDE 26.6 mmol/L (21-32); CREATININE SERUM 1.5 mg/dL (0.6-1.0)
[2019-02-22 06:29] LABS: BASOPHIL % 1.2 % (0-2); PLATELET COUNT 172 x10^3mcL (130-400)
[2019-02-22 06:35] LABS: RED CELL DISTRIBUTION WIDTH 15.6 % (11.5-14.5)
--- NOTE | 2019-02-22 08:30 | NUR ---
RECEIVED CRITCAL VALUE OF POTASSIUM 6.[address] FROM LAB[address] REPORT[address] TO [address] LANIER. NO NEW ORDERS GIVEN A THIS TIME
--- NOTE | 2019-02-22 09:39 | NUR ---
ADMINISTERED MEDICATIONS PER MAR. PATIENT COMPLAINING OF ALL OVER BODY PAIN, INSTRUCTED PATIENT TO AMBULATE IN HALLWAY. PATIENT REFUSED. ADMINSITERED NORCO PRN FOR PAIN. CALL LIGHT WIHTIN REACH
--- NOTE | 2019-02-22 12:05 | NUR ---
ADMINISTERED VALTESSA PER MAR. PATIENT STATED THE MEDICATION MAKES HER VOMIT WHEN SHE WAS TAKEN IT PREVIOUSLY. NO EPISODE OF VOMITING WITH THIS ADMINISTRATION. EMCOURAGED PATIENT TO WALK IN HALLWAY TO HELP PROMOTE ACTIVE BOWELS. PATIENT STATED SHE WOULD WALK 2 TIMES AROUND THE UNIT. PATIENT UNDERSTANDS IMPORTANCE OF HAVING A BOWEL MOVEMENT. PATIENT LOOKING AT CELL PHONE WHILE SPEAKING WITH ME. NOT MAKING EYE CONTACT WITH NURSE. CALL LIGHT WITHIN REACH
--- NOTE | 2019-02-22 14:45 | NUR ---
PATIENT LAYING SUPINE IN BED EYES CLOSED, BREATHING REGULAR. APPARENTLY ASLEEP. CALL LIGHT WITHIN REACH
--- NOTE | 2019-02-22 16:15 | NUR ---
BLOOD PRESSURE REPORTED LOW BY TUMBLER OPERATOR, I ASSESSED BLOOD PRESSURE AND FOUND TO BY 102/52 MAP 68 ON LEFT ARM. PATIENT DENIES DIZZINESS.
--- NOTE | 2019-02-22 16:39 | NUR ---
INFORMED DR LANIER THAT PATIENT HAS NOT HAD A BOWEL MOVEMENT SINCE 02/20. RECEIVED ORDER FOR SUPPOSITORY X1. ALSO INFORMED DR LANIER ABOUT CASE MANAGEMENT RECOMENDATION FOR NEPHROLOGY CONSULT DUE TO PATIENT HAD PREVIOUS FOLLOW UP IN DECEMBER THAT SHE NEVER ATTENDED. RECEIVED ORDER FOR CONSULT WITH DR LAM
[2019-02-22 17:56] LABS: CALCIUM 9.9 mg/dL (8.5-10.1); CARBON DIOXIDE 25.1 mmol/L (21-32); CREATININE SERUM 1.4 mg/dL (0.6-1.0); POTASSIUM SERUM 5.5 mmol/L (3.5-5.1)
--- NOTE | 2019-02-22 18:49 | NUR ---
ADMINISTERED PAIN MEDICATION FOR 7/10 BODY PAIN. PATIENT REFUSED SCHEDULED SUPPOSITORY STATED SHE HAD 3 BOWEL MOVEMENT INCLUDING DIARRHEA. ADVISED PATIENT OF RISKS OF POTASSIUM 5.5 PATIENT VERBALIZED UNDERSTANDING AND CONTINUED TO REFUSE. CALL LIGHT WITHIN REACH
--- NOTE | 2019-02-22 19:00 | NUR ---
RECEIVED PT LAYING IN BED USING CELLPHONE, NO ACUTE DISTRESS OBSERVED, DENIES DISCOMFORT AT THIS TIME. AA/OX4, ABLE TO MAKE NEEDS KNOWN, SPEECH CLEAR AND APPROPRIATE. NSR TO TELE #2, DENIES CP OR PRESSURE. PULSES PRESENT AND EQUAL THROUGHOUT, NO EDEMA NOTED. BREATHING ON RA, EVEN AND UNLABORED, NO SOB OR DYSPNEA OBSERVED, O2 SAT 97% ABD ROUND AND SOFT WITH ACTIVE BOWEL SOUNDS, DENIES N/V, PT ADMITS TO DIARRHEA X3, ON VELTASSA PO THERAPY. FREELY VOIDS URINE. GENERALIZED WEAKNESS, AMBULATORY WITH WALKER AT BASELINE, ABLE TO TURN AND REPOSITION SELF IN BED. IV TO LH IN PLACE, DRY, PATENT, INTACT, AND INFUSING IVF WELL, NO PAIN, REDNESS OR SWELLING NOTED. COMFORT AND SAFETY MEASURES IN PLACE. ALL NEEDS ASSESSED AND ATTENDED TO. CALL LIGHT WITHIN REACH. WILL CONTINUE TO MONITOR
--- NOTE | 2019-02-23 05:27 | NUR ---
NO SIGNIFICANT CHANGES TO REPORT, PT COMPLIED WITH NURSING CARE THROUGHOUT THE SHIFT WITH NO ACUTE EVENTS OVERNIGHT. NO ACUTE DISTRESS OBSERVED AT THIS TIME, PT LAYING IN BED, BREATHING EVEN AND UNLABORED, AROUSABLE TO VERBAL STIMULI. COMFORT AND SAFETY MEASURES MAINTAINED. ALL NEEDS ASSESSED AND ATTENDED TO. CALL LIGHT WITHIN REACH. WILL CONTINUE TO MONITOR AND ENDORSE CARE TO DAY SHIFT NURSE
[2019-02-23 05:55] VITALS: BP 100/51
[2019-02-23 06:42] LABS: BASOPHIL % 1.4 % (0-2); PLATELET COUNT 170 x10^3mcL (130-400)
[2019-02-23 06:48] LABS: CALCIUM 9.3 mg/dL (8.5-10.1); CARBON DIOXIDE 24.6 mmol/L (21-32); CREATININE SERUM 1.4 mg/dL (0.6-1.0)
[2019-02-23 06:53] LABS: RED CELL DISTRIBUTION WIDTH 15.7 % (11.5-14.5)
--- NOTE | 2019-02-23 07:17 | NUR ---
DR. LANIER MADE AWARE OF PT'S K 6.0 THIS MORNING. NO NEW ORDERS AT THIS TIME. WILL ENDORSE TO DAY SHIFT NURSE, FRANCHESCA.
--- NOTE | 2019-02-23 07:25 | NUR ---
A+OX4, NO RESPRIATORY DISTRESS NOTED, TELE 2, PULSES MODERATE AND EQUAL [place], NO EDEMA NOTED, LUNG SOUNDS CTA, TOLERATING RA, BOWEL SOUNDS ACTIVE, VOIDING FREELY, GENERALIZED WEAKNESS, AMBULATORY, SKIN INTACT, IV IN L HAND WITH NS @ 100 ML/HR, SITE WNL, DR LANIER NOTIFIED OF K 6.0 BY NIGHT RN.
--- NOTE | 2019-02-23 09:06 | NUR ---
PT RESTING IN BED, NO RESPRIATORY DISTRESS NOTED, COMPLAINING OF GENERALIZED PAIN, PT EDUCATED ON PRN NORCO SCHEDULE, PT STATES SHE WILL WAIT UNTIL NEXT NORCO DUE. CALL LIGHT WITHIN REACH.
--- NOTE | 2019-02-23 09:30 | NUR ---
PT COMPLAINING OF 9/10 GENERALIZED PAIN, NORCO PO GIVEN, NO RESPIRATORY DISTRESS NOTED, CALL LIGHT WITHIN REACH.
[2019-02-23 09:48] VITALS: BP 97/37
--- NOTE | 2019-02-23 12:12 | NUR ---
PT RESTING IN BED, NO RESPIRATORY DISTRESS NOTED, STATES GENERALIZED PAIN IS TOLERABLE AT THIS TIME, PT RESISTIVE TO VELTASSA AND MG CITRATE. I EDUCATED ON NEED FOR VELTASSA AND MG CITRATE DUE TO K 6.0. PT AGREED TO TAKE VELTASSA AND MG CITRATE. NO RESPRIATORY DISTRESS NOTED, CALL LIGHT WITHIN REACH.
--- NOTE | 2019-02-23 12:26 | NUR ---
DR LAM AT BEDSIDE TO ASSESS PT. PER DR LAM, PT TO HAVE 2 GM POTASSIUM LIMIT ON DIET.
[2019-02-23 13:38] VITALS: BP 99/53
[2019-02-23 14:30] LABS: microscopic required? NO
[2019-02-23 14:45] LABS: UA SPECIFIC GRAVITY 1.025 (1.005-1.035); urine erythrocyte NEGATIVE (NEGATIVE)
--- NOTE | 2019-02-23 16:55 | NUR ---
PT RESTING IN BED, NO RESPIRATORY DISTRESS NOTED, COMPLAINING OF 9/10 GENERALIZED PAIN, NORCO PO GIVEN. PT STATES SHE HAS HAD DIARRHEA 6 TIMES AND NOW USING BEDSIDE COMMODE. CALL LIGHT WITHIN REACH.
--- NOTE | 2019-02-23 17:33 | NUR ---
DR LAM PAGED TO REPORT K 5.9.
[2019-02-23 17:52] VITALS: BP 94/47
--- NOTE | 2019-02-23 18:10 | NUR ---
PT SITTING UP IN BED, EATING DINNER, NO RESPIRATORY DISTRESS NOTED, PT STATES SHE CONT TO HAVE MULTIPLE EPISODES OF DIARRHEA. COMMODE AT BEDSIDE, CALL LIGHT WITHIN REACH.
--- NOTE | 2019-02-23 19:07 | NUR ---
RECEIVED PT LAYING IN BED, NO ACUTE DISTRESS OBSERVED, DENIES DISCOMFORT AT THIS TIME. AA/OX4, ABLE TO MAKE NEEDS KNOWN, SPEECH CLEAR AND APPROPRIATE. NSR TO TELE #2, DENIES CP OR PRESSURE. PULSES PRESENT AND EQUAL THROUGHOUT, NO EDEMA NOTED. BREATHING ON RA, EVEN AND UNLABORED, NO SOB OR DYSPNEA OBSERVED, O2 SAT 99% ABD ROUND AND SOFT WITH HYPERACTIVE BOWEL SOUNDS, DENIES N/V, PT ADMITS TO MULTIPLE EPISODES OF DIARRHEA, PT ON VELTASSA AND MAG CITRATE PO THERAPY FOR HYPERKALEMIA. FREELY VOIDS URINE. GENERALIZED WEAKNESS, AMBULATORY WITH WALKER AT BASELINE, ABLE TO TURN AND REPOSITION SELF IN BED, BEDSIDE COMMODE WITHIN REACH. IV TO LH IN PLACE, DRY, PATENT, INTACT, AND INFUSING IVF WELL, NO PAIN, REDNESS OR SWELLING NOTED. COMFORT AND SAFETY MEASURES IN PLACE. ALL NEEDS ASSESSED AND ATTENDED TO. CALL LIGHT WITHIN REACH. WILL CONTINUE TO MONITOR
--- NOTE | 2019-02-23 19:14 | NUR ---
ENDORSED CARE TO HAN SHEEHAN.
[2019-02-23 20:50] VITALS: BP 82/45
[2019-02-23 22:33] VITALS: BP 96/49
[2019-02-24 05:18] VITALS: BP 92/48
[2019-02-24 06:41] LABS: CALCIUM 9.1 mg/dL (8.5-10.1); CREATININE SERUM 1.4 mg/dL (0.6-1.0); POTASSIUM SERUM 5.4 mmol/L (3.5-5.1)
[2019-02-24 06:44] LABS: BASOPHIL % 1.2 % (0-2); PLATELET COUNT 188 x10^3mcL (130-400)
[2019-02-24 06:51] LABS: RED CELL DISTRIBUTION WIDTH 15.5 % (11.5-14.5)
[2019-02-24 07:03] LABS: MAGNESIUM 1.7 mg/dL (1.8-2.4); PHOSPHOROUS 3.9 mg/dL (2.5-4.9)
--- NOTE | 2019-02-24 07:05 | NUR ---
RECEIVED BEDSIDE REPORT FORM YARN EXAMINER SKEINS NURSE. PATIENT IS STABLE NO APPARENT SIGNS OF PAIN, SOB, OR RESPIRATORY DISTRESS. ON ROOM AIR. IV TO LEFT HAND IS INFUSING WELL. NO EDEMA OR ERYTHEMA NOTED TO SITE. SCD'S AT BEDSIDE. CALL LIGHT WITHIN REACH. BED IN LOW POSITION, BED RAILS UP X2. QUESTIONS AND CONCERNS ADDRESSED. SAFETY PRECAUTIONS IN PLACE.
--- NOTE | 2019-02-24 07:46 | NUR ---
PHYSICAL ASSESSMENT COMPLETED. PLEASE SEE PROBLEM FOCUSED CARE FOR DETAILS.
--- NOTE | 2019-02-24 09:03 | NUR ---
ADMINISTERED MEDCATIONS PER EMAR. PATIENT EDUCATED ON NEED FOR MEDICATION, AND ADVERSE EFFECTS TO REPORT. PATIENT VERBALIZED UNDERSTANDING. PHARMACY GRAD INTERN TOLORATED WELL. PATIENT DENIES OTHER NEEDS AT THIS TIME. CALL LIGHT WITHIN REACH. BED IN LOW POSITION. SAFETY PRECAUTIONS IN PLACE.
[2019-02-24 09:08] VITALS: BP 82/44
--- NOTE | 2019-02-24 10:48 | NUR ---
ADMINISTERED MEDCATIONS PER EMAR. PATIENT EDUCATED ON NEED FOR MEDICATION, AND ADVERSE EFFECTS TO REPORT. PATIENT VERBALIZED UNDERSTANDING. OTHER WOOD PROCESSING MACHINE OPERATOR TOLORATED WELL. PATIENT DENIES OTHER NEEDS AT THIS TIME. CALL LIGHT WITHIN REACH. BED IN LOW POSITION. SAFETY PRECAUTIONS IN PLACE.
--- NOTE | 2019-02-24 11:22 | NUR ---
PATIENT IS RESTING COMFORTABLY IN BED. NO APPARENT SIGNS OF PAIN, SOB, OR RESPIRAOTRY DISTRESS. PATIENT STATES PAIN MEDICATION EFFECTIVE. DENIES OTHER NEEDS AT THIS TIME. QUESTIONS AND CONCNERS ADDRESSED. CALL LIGHT WITHIN REACH. SAFETY PRECAUTIONS IN PLACE.
--- NOTE | 2019-02-24 11:22 | NUR ---
ADMINISTERED 1130 GLUCOSE CHECK. NO COVERAGE NEEDED PER SLIDING SCALE. REMOVED LIVE AFTER RECEIVEING ORDER TO D/C LIVE CATH. PATIENT TOLORATED WELL. PATIENT REQUESTED TO AMBULATE TO RESTROOM. PATIENT TOLORATED WELL WITH NO ASSISSTANCE. CLEANED UP WASHED FACE AND HAIR. RETURNED TO BEDSIDE CHAIR. PATIENT IS RESTING COMFORTABLY IN BEDSIDE CHAIR. DENIES OTHER NEEDS AT THIS TIME. SAFETY PRECAUTIONS IN PLACE.
--- NOTE | 2019-02-24 12:15 | NUR ---
NOTIFIED MD OF LOW BP READINGS. MD AWARE NO FURTHER ORDERS AT THIS TIME. PATIENT IS STABLE DENIES DIZZINESS, CAM, OR CHEST PAIN, DIFFICULTY BREATHING. PATIENT DENIES OTHER NEEDS AT THIS TIME. SAFETY PRECAUTIONS IN PLACE.
[2019-02-24 12:39] VITALS: BP 86/45
--- NOTE | 2019-02-24 14:29 | NUR ---
ADMINISTERED MEDCATIONS PER EMAR. PATIENT EDUCATED ON NEED FOR MEDICATION, AND ADVERSE EFFECTS TO REPORT. PATIENT VERBALIZED UNDERSTANDING. VOCATIONAL TRAINING TEACHER TOLORATED WELL. PATIENT DENIES OTHER NEEDS AT THIS TIME. CALL LIGHT WITHIN REACH. BED IN LOW POSITION. SAFETY PRECAUTIONS IN PLACE.
--- NOTE | 2019-02-24 16:21 | NUR ---
PATIENT IS RESTING COMFORTABLY INBED. NO APPARENT SIGNS OF PAIN, SOB, OR RESPIRATORY DISTRESS. PATIENT IS ON ROOM AIR. DENIES OTHER NEEDS AT THIS TIME. CALL LIGHT AND PHONE WITHIN REACH. BED IN LOW POSITION, QUESTIONS AND CONCERNS ADDRESSED, SAFETY PRECAUTIONS IN PLACE.
[2019-02-24 17:55] VITALS: BP 88/43
--- NOTE | 2019-02-24 18:10 | NUR ---
PATIENT STABLE, NO APPARENT SIGNS OF PAIN, SOB, OR RESPIRATORY DISTRESS. PATIENT ON ROOM AIR. EATING DINNER. IV TO LEFT HAND IS INFUSING NS AT 100ML/HR. NO EDEMA OR ERYTHEMA NOTED AT SITE. SCD'S AT BEDSIDE. CALL LIGHT AND PHONE WITHIN REACH. BED IN LOW POSITION. BED RAILS UP X2. QUESTIONS AND CONCERNS ADDRESSED. SAFETY PRECAUTIONS IN PLACE. WILL ENDORSE CARE TO PROBATE CLERK NURSE.
--- NOTE | 2019-02-24 19:03 | NUR ---
PATIENT STATED SHE HAS NOT HAD BM NOTIFIED MD. MD LANIER ORDERED ADDITIONAL MEDICATION. WILL ADMINISTER MEDICATION PER EMAR.
--- NOTE | 2019-02-24 20:07 | NUR ---
Awake and verbally responsive. No respiratory distress noted on room air. Denies pain. Denies n/v. Normal sinus rhythm. Will cont.to monitor. Call light within reach.
[2019-02-24 20:55] VITALS: BP 80/41
--- NOTE | 2019-02-25 04:30 | NUR ---
Afebrile. No significant change in condition noted. Medicated as ordered for c/o generalized body pain with help. In no apparent distress.
[2019-02-25 05:20] VITALS: BP 89/48
[2019-02-25 06:33] LABS: CALCIUM 8.4 mg/dL (8.5-10.1); CARBON DIOXIDE 26.9 mmol/L (21-32); CREATININE SERUM 1.1 mg/dL (0.6-1.0); POTASSIUM SERUM 4.3 mmol/L (3.5-5.1)
[2019-02-25 06:45] LABS: BASOPHIL % 1.2 % (0-2); PLATELET COUNT 168 x10^3mcL (130-400)
[2019-02-25 06:46] LABS: RED CELL DISTRIBUTION WIDTH 15.5 % (11.5-14.5)
[2019-02-25 06:48] LABS: MAGNESIUM 2.2 mg/dL (1.8-2.4); PHOSPHOROUS 3.1 mg/dL (2.5-4.9)
--- NOTE | 2019-02-25 08:00 | NUR ---
RECEIVED PATIENT A/A/OX4. DENIED PAIN NOW. TELE#2; SR; HR =65. DENIED CHEST PAIN. NO RESP DISTRESS ON RA. TOLERATED RENAL DIET BREAKFAST. NO N/V. HAD BM THIS AM. VOID FREELY. IVF OF NS 100CC/HR. IV SITE TO L HAND INTACT. GENERAL WEAKNESS. AMBULATED WITH WALKER. CALL LIGHT IN REACH.
[2019-02-25 09:17] VITALS: BP 81/44
--- NOTE | 2019-02-25 09:45 | NUR ---
DR. LANIER CAME AND SAW PATIENT. NEW ORDER OF DISCHARGE TO HOME WRITTEN.
[2019-02-25 10:30] VITALS: BP 81/44; BP 85/39
[2019-02-25 13:23] VITALS: BP 85/39
--- NOTE | 2019-02-25 15:20 | NUR ---
D/C TO HOME PER ORDER. INSTRUCTION GIVEN. IV D/C'D. CONDITION STABLE. PATIENT'S BASE LINE B/P WAS 80'S/40'S. LAST B/P = 85/39; DENIED DIZZINESS/VERTIGO. DR. LANIER AWARE OF PATIENT'S BP.
[2019-02-27 04:06] LABS: CK-BB 0 % (0); CK-MB 0 % (0-3); CK-MM 100 % (97-100); MACRO TYPE 1 0 % (Not Observed); MACRO TYPE 2 0 % (Not Observed)
== END 2019-02-25 15:29 | disposition home or self-care (01) | DRG 426 ==
LOC: ED 11:18 → DU 13:40
PROVIDERS: Emergency Medicine; Internal Medicine Nephrology; ADMIT Internal Medicine
DX: E87.1 Hypo-osmolality and hyponatremia (principal); M62.82 Rhabdomyolysis; N17.9 Acute kidney failure, unspecified; K76.0 Fatty (change of) liver, not elsewhere classified; E87.5 Hyperkalemia; N18.3 Chronic kidney disease, stage 3 (moderate); I12.9 Hypertensive chronic kidney disease with stage 1 through stage 4 chronic kidney disease, or unspecified chronic kidney disease; E03.9 Hypothyroidism, unspecified; F41.9 Anxiety disorder, unspecified; G89.29 Other chronic pain; K80.20 Calculus of gallbladder without cholecystitis without obstruction; F32.9 Major depressive disorder, single episode, unspecified; Z88.2 Allergy status to sulfonamides; Z88.8 Allergy status to other drugs, medicaments and biological substances
CPT/HCPCS: G0378; J2405; J2765; J3475; J3490; J7030; Q0092

== ENCOUNTER 2019-05-12 14:46 | Inpatient (IN) | payer OTHER ==
[~2019-05-12] VITALS: Ht 160 cm; Wt 71.7 kg
--- NOTE | 2019-05-12 15:07 | NUR ---
TRIAGE AND ASSESSMENT ENTERED BY BRICE SHEEHAN.
[2019-05-12 15:35] LABS: CALCIUM 9.7 mg/dL (8.5-10.1); CARBON DIOXIDE 23.5 mmol/L (21-32); CREATININE SERUM 1.9 mg/dL (0.6-1.0); POTASSIUM SERUM 4.6 mmol/L (3.5-5.1)
[2019-05-12 15:39] LABS: BASOPHIL % 0.7 % (0-2); PLATELET COUNT 240 x10^3mcL (130-400); RED CELL DISTRIBUTION WIDTH 14.2 % (11.5-14.5)
[2019-05-12 15:49] LABS: ALBUMIN 4.2 g/dL (3.4-5.0); BILIRUBIN TOTAL 0.6 mg/dL (0.20-1.00)
[2019-05-12 15:50] LABS: CHOLESTEROL/HDL RATIO 8.5; TOTAL PROTEIN, SERUM 9.1 g/dL (6.4-8.2)
--- NOTE | 2019-05-12 17:58 | NUR ---
PT AAOX4, VSS, SPEAKS IN FULL CLEAR SENTENCES, BREATHING EASY AND UNLABORED. NO OBVIOUS SIGNS OF DISTRESS AT THIS TIME. PT ADMITTED.
--- NOTE | 2019-05-12 18:01 | NUR ---
PT ADMITTED (TELE - ROOM#256B) - REPORT CALLED TO JEWEL SHEEHAN. OPPORTUNITY GIVEN TO ASK QUESTIONS. PT BEING TRANSPORTED TO FLOOR BY RN AND EMT. PT'S CARE COMPLETED BY THIS RN AT THIS TIME.
--- NOTE | 2019-05-12 18:23 | NUR ---
RECEIVED PT FROM ED VIA [facility], CAME IN DUE TO BODY ACHES, WEAKNESS, NAUSEA AND VOMITING. AAOX4. DENIES HEADACHE/DIZZINESS. ABLE TO FOLLOW COMMANDS. NO SOB NOTED, LUNG SOUNDS CTA. DENIES CHEST PAIN/PRESSURE, SR ON THE MONITOR. C/O MILD NAUSEA. DENIES ABDOMINAL PAIN, BOWEL SOUNDS ACTIVE. ABDOMEN IS SOFT. VOIDS. W/ VERY SMALL DRY SCAB ON THE LEFT FOOT, ELDA. C/O 8/10 GENERALIZED BODY PAIN. W/ GENERALIZED WEAKNESS. STATED THAT SHE USES ELECTRIC WHEELCHAIR BUT ABLE TO WALK IN SHORT DISTANCES. PULSES ARE PALPABLE. IV SITE ON THE LEFT CHEST AREA GAUGE 22, PATENT AND INTACT. SIDE RAILS UPX2. CALL LIGHT ON REACH. PRIMARY NURSE JEWEL AT BEDSIDE FOR CONTINUITY OF CARE
[2019-05-12 18:30] VITALS: BP 117/70
[2019-05-12 18:37] VITALS: Ht 160 cm; Wt 71.7 kg
--- NOTE | 2019-05-12 18:42 | NUR ---
PATIENT IS SITTING UP IN BED WATCHING TV. IVF STARTED ORDERED. PATIENT C/O GENERALIZED PAIN 8/10 ON THE PAIN SCALE. MEDICATED WITH NORCO PO ORDERED. WILL ENDORSE TO NOC NURSE.
--- NOTE | 2019-05-12 19:20 | NUR ---
RECIEVED PT IN NO ACUTE DISTRESS. AOX4. TELE #8, SR. BREATHING E/U. DENIES PAIN/N/V. IV TO L SHOULDER, PATENT. BED IN LOWEST POSITION, 2 SIDE RAILS UP, CALL LIGHT IN REACH. INSTRUCTED TO CALL FOR ASSISTANCE.
[2019-05-12 20:04] VITALS: BP 109/51
--- NOTE | 2019-05-13 02:15 | NUR ---
RESTING IN BED WITH EYES CLOSED. BREATHING E/U. NO ACUTE DISTRESS NOTED. WILL CONTINUE TO MONITOR.
[2019-05-13 05:23] VITALS: BP 88/51
--- NOTE | 2019-05-13 06:14 | NUR ---
NO C/O N/V OVERNIGHT. BODY ACHES WELL CONTROLLED BY PRN NORCO X1. NO ACUTE DISTRESS NOTED. NO ACUTE CHANGES. WILL ENDORSE TO ONCOMING RN
[2019-05-13 06:54] LABS: BASOPHIL % 0.7 % (0-2); PLATELET COUNT 206 x10^3mcL (130-400); RED CELL DISTRIBUTION WIDTH 14.4 % (11.5-14.5)
[2019-05-13 07:16] LABS: CALCIUM 8.7 mg/dL (8.5-10.1); CARBON DIOXIDE 27.2 mmol/L (21-32); POTASSIUM SERUM 4.7 mmol/L (3.5-5.1)
--- NOTE | 2019-05-13 07:21 | NUR ---
REPORT TAKEN FROM MANAGER WILLOW NURSE AT THE BEDSIDE, PATIENT AWAKE AND ALERT, IN NO ACUTE DISTRESS, RESTING COMFORTABLY, WILL CONTINUE TO MONITOR.
[2019-05-13 08:23] VITALS: BP 87/56
[2019-05-13 12:00] VITALS: BP 84/43
[2019-05-13 16:24] VITALS: BP 99/58
--- NOTE | 2019-05-13 17:16 | NUR ---
PATIENT HAS REPORTED BODYACHES AND CRAMPING PAIN THROUGHOUT SHIFT. PATIENT REQUESTED NORCO FOR PAIN, HOWEVER PATIENT'S BLOOD PRESSURE HAS BEEN MID TO HIGH 80'S SBP DURING THE SHIFT. I CONFIMRED WITH DR. LANIER AND PHARMACIST THAT BP WAS TO LOW TO GIVE NORCO. I OFFERED THE PATIENT TYLENOL 650MG, BUT SHE REFUSED. PATIENT REPORTS THAT DR. LANIER TOLD HER SHE COULD HAVE NORCO WHEN SBP WAS ABOVE 90. DR. LANIER DID NOT REPORT THIS TO ME. THEREFORE I SPOKE TO MY CHARGE NURSE AND PHARMACIST WHO BOTH ADVISED THE NORCO BE HELD TILL THE BP COMES UP. WILL CONTINUE TO MONITOR.
[2019-05-13 18:24] VITALS: BP 103/59
--- NOTE | 2019-05-13 19:04 | NUR ---
REPORT GIVEN TO FIELD SERVICE SPECIALIST NURSE AT THE BEDSIDE, PATIENT DID NOT WAKE FOR REPORT. FIELD SERVICE SPECIALIST NURSE ADVISED OF PATIENT'S PAIN REPORTS AND BLOOD PRESSURE READINGS DURING THE SHIFT. CARE ENDORSED.
--- NOTE | 2019-05-13 19:25 | NUR ---
RECEIVED PT FROM PREVIOUS SHIFT. PT A/OX4. DENIES SOB ON ROOM AIR. IV PATENT AND INFUSING NS AT 100ML/HR WITH NO S/S OF INFILTRATION. CALL LIGHT WITHIN REACH, BED IN LOW POSITION. WILL CONTINUE TO MONITOR.
[2019-05-13 20:38] VITALS: BP 98/53
--- NOTE | 2019-05-14 00:51 | NUR ---
PT RESTING IN NO ACUTE DISTRESS. RR EVEN AND UNLABORED. CALL LIGHT WITHIN REACH, BED IN LOW POSITION. WILL CONTINUE TO MONITOR.
[2019-05-14 06:03] VITALS: BP 100/55
[2019-05-14 06:25] LABS: PLATELET COUNT 193 x10^3mcL (130-400); RED CELL DISTRIBUTION WIDTH 14.1 % (11.5-14.5)
[2019-05-14 06:50] LABS: CALCIUM 8.8 mg/dL (8.5-10.1); CREATININE SERUM 1.9 mg/dL (0.6-1.0); URIC ACID 6.5 mg/dL (2.6-6.0)
--- NOTE | 2019-05-14 07:00 | NUR ---
RECEIVED BEDSIDE REPORT FROM SOCIAL SECRETARY NURSE AT THIS TIME. PATIENT RESTING COMFORTABLY IN BED WATCHING TV. NO APPARENT DISTRESS OR DISCOMFORT NOTED. PATIENT BREATHING EVEN AND UNLABORED. PATIENT DENIES SHORTNESS OF BREATH. PATIENT DENIES CHEST PAIN AT THIS TIME. TELE [address] IV PATENT AND INTACT TO LH INFUSING NS @100. ALL QUESTIONS AND CONCERNS ADDRESSED. ALL NEEDS ATTENDED TO. WILL CONTINUE TO MONITOR
[2019-05-14 07:06] LABS: POTASSIUM SERUM 5.6 mmol/L (3.5-5.1)
[2019-05-14 08:20] VITALS: BP 98/62
--- NOTE | 2019-05-14 10:00 | NUR ---
MORNING MEDICATIONS ADMINISTERED. PATIENT TOLERATED MEDICATION WELL. NO APPARENT ADVERSE EFFECTS NOTED. ALL NEEDS ATTENDED TO. WILL CONTINUE TO MONITOR
[2019-05-14 12:42] VITALS: BP 92/50
--- NOTE | 2019-05-14 13:44 | NUR ---
PATIENT C/O GENERALIZED PAIN AT THIS TIME. PATIENT MEDICATED WITH NORCO PO PRN. PATIENT TOLERATED MEDICATION WELL. NO APPARENT ADVERSE EFFECTS NOTED. ALL NEEDS ATTENDED TO. WILL CONTINUE TO MONITOR
[2019-05-14 14:45] LABS: microscopic required? NO
[2019-05-14 15:04] LABS: UA SPECIFIC GRAVITY <=1.005 (1.005-1.035); urine erythrocyte NEGATIVE (NEGATIVE)
[2019-05-14 16:53] VITALS: BP 88/50
--- NOTE | 2019-05-14 18:44 | NUR ---
PATIENT RESTING COMFORTABLY IN BED AT THIS TIME WATCHING TV. NO APPARENT DISTRESS OR DISCOMFORT NOTED. IV PATENT AND INTACT TO LEFT HAND. ALL QUESTIONS AND CONCERNS ADDRESSED. ALL NEEDS ATTENDED TO. SAFETY PRECAUTIONS MAINTAINED. WILL ENDORSE ALL CARE TO INGREDIENT SPECIALIST NURSE
--- NOTE | 2019-05-14 19:30 | NUR ---
PT RECIEVED FROM DAY NURSE. PT. RESTING IN BED AT THIS TIME. DENIES PAIN OR DISCOMFORT. A/O X4, CALM AND COOPERATIVE AT THIS TIME. TELE 8, SR. DENIES CP, NV, DIZZINESS, OR PALPATATIONS. PALPABLE PULSES, EDEMA NOTED TO BLE. BREATHING E/U ON RA. DENIES SOB AT THIS TIME. ABD SOFT AND ROUND, DENIES PAIN ON PALPATION. GENERALIZED WEAKNESS, AMBULATORY AT BASELINE. IV TO CDI. BED AT LOWEST POSITION. CALL LIGHT WITHIN REACH. WILL CONTINUE TO MONITOR.
[2019-05-14 20:22] VITALS: BP 94/50
--- NOTE | 2019-05-14 20:45 | NUR ---
PT COMPLAINING OF 6/10 GENERALIZED BODY ACHES. MEDICATED WITH PRN NORCO. WILL CONTINUE TO MONITOR.
--- NOTE | 2019-05-15 00:22 | NUR ---
PT RESTING IN BED AT THIS TIME. NO S/S OF PAIN OR DISCOMFORT NOTED AT THIS TIME. BREATHING E/U ON RA. BED AT LOWEST POSITION. CALL LIGHT WITHIN REACH. WILL CONTINUE TO MONITOR.
[2019-05-15 05:57] VITALS: BP 87/42
--- NOTE | 2019-05-15 06:37 | NUR ---
PT RESTING IN BED AT THIS TIME. PT STATED 6/10 GENERAL BODY ACHES. MEDICATED WITH PRN NORCO. BREATHING E/U ON RA AT THIS TIME. NO SIGNS OF ACUTE DISTRESS NOTED. ALL NEEDS AND CONCERNS ADDRESSED THIS SHIFT. BED AT LOWEST POSITION. CALL LIGHT WITHIN REACH. WILL ENDORSE TO DAY NURSE.
--- NOTE | 2019-05-15 07:22 | NUR ---
ASSUMED CARE OF PATIENT. SEEN RESTING THIS MORNING WITH EQUAL AND UNLABORED RESPIRATIONS. NO APPARENT DISTRESS NOTED. IV TO LH SALINE LOCKED. WILL CONTINUE TO MONITOR.
[2019-05-15 07:47] LABS: CARBON DIOXIDE 25.5 mmol/L (21-32); CREATININE SERUM 1.6 mg/dL (0.6-1.0); POTASSIUM SERUM 4.4 mmol/L (3.5-5.1)
[2019-05-15 07:48] LABS: CALCIUM 9.2 mg/dL (8.5-10.1)
[2019-05-15 08:21] VITALS: BP 92/46
--- NOTE | 2019-05-15 09:45 | NUR ---
PATIENT NOTIFIED OF 1400 PICKUP BY [facility].
--- NOTE | 2019-05-15 10:09 | NUR ---
NOTIFIED OF BP IN HIGH 80 TO LOW 90'S AND REFUSAL TO PARTICIPATE IN PHYISCAL THERAPY DUE TO DIZZINESS AND WEAKNESS. NO NEW ORDERS.
--- NOTE | 2019-05-15 10:45 | NUR ---
COMPLAINING OF 6/10 HEADACHE. PRN TYLENOL PROVIDED.
[2019-05-15 11:51] VITALS: BP 92/46
[2019-05-15 12:33] VITALS: BP 115/57
--- NOTE | 2019-05-15 12:47 | NUR ---
PATIENT DISCHARGE PAPERWORK AND EDUCATION PROVIDED.
--- NOTE | 2019-05-15 13:08 | NUR ---
PT NOTES CHART REVIEWED. CLEARED BY NSG FOR TX. PT DECLINED TO PARTICIPATE IN OOB ACTIVITIES D/T C/O DIZZINESS & NAUSEA. VS MONITORED BP 83/55 & INSTRUCTED TO PERFORM ANKLE PUMPS & BP IMPROVED 89/55. RN WAS NTF THAT PT IS C/O DIZZINESS & NAUSEA.
--- NOTE | 2019-05-15 13:35 | NUR ---
IV REMOVED WITH CATHTER INTACT. TELEMONITOR REMOVED.
--- NOTE | 2019-05-15 14:24 | NUR ---
PATIENT STATING IF [facility] DOES NOT GET HERE SOON SHE WILL NOT HAVE A WAY IN THE HOUSE. PATIENTS SON WILL BE LEAVING FOR WORK AT 3 AND WAS TOLD TO LEAVE TO HER MOTHERS HOUSE AT 2. CONFIRMED WITH [facility] OF TRANSPORTATION AND SHOULD BE ARRIVING IN [facility] 15 MINUTES. PATIENT WAS ABLE TO HAVE SON WAIT AN ADDITIONAL 15 MINUTES FOR HER AT HOME TO LET HER IN.
--- NOTE | 2019-05-15 15:01 | NUR ---
PATIENT DISCHARGED WITH [facility]. NO COMPLAINTS OF PAIN OR DISCOMFORT. NO APPARENT DISTRESS NOTED. ID BANDS REMOVED. LEFT WITH ALL BELONGINGS.
--- NOTE | 2019-05-17 17:58 | NUR ---
PHYSICAL THERAPY DAILY NOTES CO-SIGN All documentation done by the Director Of Rot[employer] for 05/15/19 has been reviewed. I agree with the documentation. Reviewed/Co-Signed by: Letty Saucedo PT Documentation Done by:KUSHAL SETHI TENDER LABOR LATE ENTRY FOR 05/15/19; POC REVIEWED W/ TENDER LABOR.
== END 2019-05-15 15:02 | disposition home or self-care (01) | DRG 469 ==
LOC: ED 14:46 → DU 17:08
PROVIDERS: Internal Medicine Nephrology; Specialist; ADMIT Internal Medicine
DX: N17.9 Acute kidney failure, unspecified (principal); E22.2 Syndrome of inappropriate secretion of antidiuretic hormone; E03.9 Hypothyroidism, unspecified; K52.9 Noninfective gastroenteritis and colitis, unspecified; F41.8 Other specified anxiety disorders; N18.1 Chronic kidney disease, stage 1; F41.9 Anxiety disorder, unspecified; E78.5 Hyperlipidemia, unspecified; R74.0 Nonspecific elevation of levels of transaminase and lactic acid dehydrogenase [LDH]; M25.552 Pain in left hip; M25.551 Pain in right hip; G89.29 Other chronic pain; Z68.26 Body mass index [BMI] 26.0-26.9, adult; Z88.2 Allergy status to sulfonamides; Z88.8 Allergy status to other drugs, medicaments and biological substances; F32.9 Major depressive disorder, single episode, unspecified; E78.00 Pure hypercholesterolemia, unspecified; E27.1 Primary adrenocortical insufficiency
CPT/HCPCS: 97110-GP; 97530-GP; G0378; J2405; J3490; J7030; J7512; Q0092

== ENCOUNTER 2019-05-24 11:38 | Inpatient (IN) | payer OTHER ==
[~2019-05-24] VITALS: Ht 160 cm; Wt 72.1 kg
[2019-05-24 11:45] VITALS: Ht 160 cm; Wt 72.1 kg
[2019-05-24 12:14] LABS: PLATELET COUNT 281 x10^3mcL (130-400); RED CELL DISTRIBUTION WIDTH 14.7 % (11.5-14.5)
[2019-05-24 12:25] LABS: CALCIUM 9.6 mg/dL (8.5-10.1); CARBON DIOXIDE 24.2 mmol/L (21-32); CHLORIDE SERUM 92 mmol/L (98-107); CREATININE SERUM 1.6 mg/dL (0.6-1.0); GFR1 36 mL/min; GLUCOSE SERUM 102 mg/dL (74-106); POTASSIUM SERUM 4.8 mmol/L (3.5-5.1); SODIUM SERUM 127 mmol/L (136-145)
[2019-05-24 12:36] LABS: ALBUMIN 4.5 g/dL (3.4-5.0); ALKALINE PHOSPHATASE 104 U/L (46-116); ALT/SGPT 31 U/L (14-59); AST/SGOT 58 U/L (15-37); BILIRUBIN TOTAL 0.8 mg/dL (0.20-1.00); LIPASE 332 IU/L (73-393); MAGNESIUM 1.8 mg/dL (1.8-2.4); TOTAL PROTEIN, SERUM 9.7 g/dL (6.4-8.2)
[2019-05-24 12:37] LABS: CHOLESTEROL 464 mg/dL (<200); HDL CHOLESTEROL 63 mg/dL (40-60); T4(THYROXINE) 1.1 ug/dL (4.7-13.3)
--- NOTE | 2019-05-24 13:12 | NUR ---
PT COMES TO ER WITH MULTIPLE COMPLAINTS. STATES GENERALIZED WEAKNESS /FATIGUE FOR SEVERAL DAYS WITH SUDDEN ONSET OF NAUSEA SINCE THIS AM WITH 1 EPISODE OF VOMITING UNDIGESTED FOOD. RESP EVEN AND UNLABORED, ON RA @ 99%. PT DENIES ANY ABDOMINAL PAIN. ABD ROUND/SOFT, NT TO PALPATION. ALSO C/O GENERALIZED HEADACHE GRADUAL ONSET, DENIES VISUAL CHANGES. SKIN W/D/I, EQUAL HAND CRAP GAME BOX PERSON. SAFETY MEASURES IN PLACE. WILL CONT TO MONITOR.
--- NOTE | 2019-05-24 14:03 | NUR ---
PT AWARE OF NEEDED URINE SPECIMEN.
--- NOTE | 2019-05-24 14:29 | NUR ---
PT AWARE OF NPO STATUS.
--- NOTE | 2019-05-24 14:48 | NUR ---
PT UP TO BATHROOM,STEADY GAIT. REPORTS FEELING BETTER. PT UPDATED ON PLAN OF CARE, VERBALIZED UNDERSTANDING.
[2019-05-24 15:04] LABS: microscopic required? NO
[2019-05-24 15:15] LABS: urine erythrocyte NEGATIVE (NEGATIVE)
[2019-05-24 15:20] LABS: AMPHETAMINE QUAL UR NONE DETECTED (See below)
--- NOTE | 2019-05-24 16:15 | NUR ---
PT LAYING COMFORTABLY IN GURNEY, AWAKE AND ALERT, RESP E/U, DENIES ANY PAIN. PT VERBALIZED UNDERSTANDING OF PLAN OF CARE FOR ADMISSION.
--- NOTE | 2019-05-24 17:05 | NUR ---
REPORT CALLED TO AGUILA FAUST TO ASSUME CARE FOR PT.
--- NOTE | 2019-05-24 17:09 | NUR ---
PT TRANSPORTED TO TELE AT THIS TIME BY EMT ANUSHKA AND RN MI. PT IS AWAKE AND ALERT, RESP E/U, NAD NOTED UPON LEAVING ED.
[2019-05-24 18:02] VITALS: BP 125/75
--- NOTE | 2019-05-24 18:14 | NUR ---
RECEIVED PT FROM ER, PT ADMIT FOR HYPONATRREMIA, PT IS A/O X4, VERBAL RESPONSIVE, LUNG SOUND CLEAR BILATERAL, NO COUGH, NO SOB, PT IS ON TELE 32, NSR, DENY ANY CHEST PAIN OR DISCOMFORT, BOWEL SOUND PRESENT ALL 4 QUADRANTS, NO DISTENTION, NO TENDER. PEDAL PULSE PRESENT BOTH FEET, NO EDEMA, IV AT LEFT FA, NO LEAKING NO INFILTRATION. ALL ADLS ASSIST, ALL NEED MET CALL LIGHT IN REACH, WILL CONTINUE TO MONITOR.
--- NOTE | 2019-05-24 18:38 | NUR ---
NO SIGNIFICANT CHANGE NOTED.WILL ENDORSE TO NEXT SHIFT.
--- NOTE | 2019-05-24 19:17 | NUR ---
[facility] TRANSP[facility] HERE TO INSIDE STEWARD/STEWARDESS PT.WENT DOWN VIA [place] ACCOMPANIED BY [facility]SP[facility].
--- NOTE | 2019-05-24 19:30 | NUR ---
RECIEVED PATIENT AT START OF SHIFT A/O X4. NO SOB ON RA, LUNGS CLEAR. DENIES PAIN AT THIS TIME BUT REPORTS FEELING WEAK. PATIENT INSTRUCTED NOT TO GET UP OUT OF BED ALONE AND TO USE CALL LIGHT. CALL LIGHT WITHIN REACH. ON TELE 32 NSR. IV TO LFA INFUSING WITHOUT ERYTHEMA OR INFILTRATION. BED LOCKED AND IN LOWEST POSITION. BEDSIDE TABLE WITHIN REACH.
--- NOTE | 2019-05-24 20:03 | NUR ---
PATIENT GIVEN NORCO PER EMAR FOR 03/27 PAIN RT GENERALIZED MUSCLE CRAMPS.
[2019-05-24 21:19] VITALS: BP 112/63
--- NOTE | 2019-05-25 00:22 | NUR ---
PATIENT'S EYES ARE CLOSED, BREATHS EVEN AND REGULAR, NO SIGNS OF DISTRESS. IV INFUSING WITHOUT ERYTHEMA OR INFILTRATION. CALL LIGHT WITHIN REACH.
[2019-05-25 05:00] VITALS: BP 109/65
--- NOTE | 2019-05-25 06:03 | NUR ---
PATIENT IS AWAKE. NO SOB ON RA. NO COMPLAINT OF PAIN. IV TO LFA IS INFUSING WITHOUT ERYTHEMA OR INFILTRATION. CALL LIGHT WITHIN REACH. BED LOCKED AND IN LOWEST POSITION. WILL ENDORSE CARE TO DAYSHIFT NURSE.
[2019-05-25 06:31] LABS: CALCIUM 8.8 mg/dL (8.5-10.1); CARBON DIOXIDE 25.2 mmol/L (21-32); CREATININE SERUM 1.5 mg/dL (0.6-1.0); POTASSIUM SERUM 5.3 mmol/L (3.5-5.1)
--- NOTE | 2019-05-25 07:15 | NUR ---
AAO X4.C/O GEN BODY ACHES AT 8/10 PAIN SCALE.WILL MEDICATE NEEDED.LUNGS CLEAR.ON SR ON THE MONITOR.IVF NS GOING AT 100 ML/HR INFUSING WELL.CALL LIGTH WITHIN REACH.INSTRUCTED TO CALL FOR ANY PAIN/DISCOMFORT.WILL CONTINUE TO MONITOR PT.
[2019-05-25 07:34] LABS: BASOPHIL % 0.2 % (0-2); PLATELET COUNT 217 x10^3mcL (130-400)
[2019-05-25 07:39] LABS: RED CELL DISTRIBUTION WIDTH 14.6 % (11.5-14.5)
[2019-05-25 09:24] VITALS: BP 116/67
[2019-05-25 13:12] VITALS: BP 112/64
--- NOTE | 2019-05-25 15:09 | NUR ---
PT STARTING TO GET RESTLESS.GAVE ATIVAN 1 MG IVP ORDERED PRN FOR AGITATION/ALCOHOL WITHDRAWAL PROTOCOL.WILL CONTINUE TO MONITOR PT.
--- NOTE | 2019-05-25 15:45 | NUR ---
GAVE PT NORCO 1 TAB FOR C/O GEN BODY ACHE AT 6/10 PAIN SCALE.WILL CONTINUE TO MONITOR PT.
--- NOTE | 2019-05-25 16:45 | NUR ---
WENT TO CHECK ON PT.PT IS COMFORTABLY SLEEPING NO SIGNS OF PAIN
[2019-05-25 17:03] VITALS: BP 94/55
--- NOTE | 2019-05-25 17:15 | NUR ---
PER TELEPHONE SWITCHBOARD OPERATOR PT PUT TOILET PAPER ON THE HAT TO COLLECT URINE.REMINDED PT NOT TO PUT TOILET PAPER ON THE HAT. PER TELEPHONE SWITCHBOARD OPERATOR THIS IS THE THIRD TIME PT IS REMINDED THAT WE NEED TO COLLECT URINE.
--- NOTE | 2019-05-25 18:24 | NUR ---
NO SIGNIFICANT CHANGE NOTED.WILL ENDORSE TO NEXT SHIFT.
[2019-05-25 21:15] VITALS: BP 84/48
--- NOTE | 2019-05-25 23:24 | NUR ---
pt is compliant, denies c/o pain or discomfort at this time. blood pressure is lower than usual, retried X3 both arms. sbp=84. Dr Macedo called order for ns 250 received et administering at this time. pt may receive valiun 10mg if SBP>90.
--- NOTE | 2019-05-25 23:58 | NUR ---
ASSUMED CARE OF PT, RESTING QUIETLY IN BED, WITH EYES CLOSED, EASILY AROUSABLE. RESP. EVEN AND UNLABORED. ON ROOM AIR, NO ACUTE DISTRESS NOTED. IVF, NS AT 50ML/HR, INTACT AND INFUSING VIA LFA, SITE CLEAR. CALL LIGHT WITHIN REACH. WILL CONTINUE TO MONITOR.
[2019-05-26 00:13] VITALS: BP 106/56
--- NOTE | 2019-05-26 00:43 | NUR ---
B/P RECHECK SHOWS 106/56, HR 66, MAP 71 AND SAT. 98% ON ROOM AIR. NO COMPLAINTS NOTED AT THIS TIME. CALL LIGHT WITHIS TIME. WILL CONTINUE TO MONITOR.
[2019-05-26 04:54] VITALS: BP 109/59
[2019-05-26 06:24] LABS: CALCIUM 8.7 mg/dL (8.5-10.1); CARBON DIOXIDE 27.5 mmol/L (21-32); CREATININE SERUM 1.5 mg/dL (0.6-1.0); POTASSIUM SERUM 4.8 mmol/L (3.5-5.1)
--- NOTE | 2019-05-26 06:25 | NUR ---
SLEPT WELL DURING THE NIGHT. NO COMPLAINTS NOTED. AFEBRILE AND VITAL SIGNS STABLE.B/P SHOWS 109/59. PT DENIES CP OR ANY DISCOMFORT. IVF INTACT AND INFUSING WELL, SITE CLEAR. KEPT COMFORTABLE. CALL LIGHT WITHIN REACH. WILL CONTINUE TO MONITOR.
[2019-05-26 06:41] LABS: BASOPHIL % 0.5 % (0-2); PLATELET COUNT 184 x10^3mcL (130-400); RED CELL DISTRIBUTION WIDTH 14.5 % (11.5-14.5)
--- NOTE | 2019-05-26 07:30 | NUR ---
RECEIVED PATIENT IN BED, AWAKE ALERT AND ORIENTED. IVF INFUSING WELL, SITE PATENT. TELE 32 NSR. RESP EVEN AND UNLABORED, LUNGS CLEAR ON ROOM AIR. ABD SOFT AND ROUND, BOWEL SOUNDS ACTIVE. LBM THIS AM PER PATIENT. VOIDING WELL. NO EDEMA NOTED, PULSES PALABLE. NO ACUTE DISTRESS NOTED.
--- NOTE | 2019-05-26 08:36 | NUR ---
PATIENT C/O BACK AND HIP PAIN. 8/10 ON THE PAIN SCALE. MEDICATED WITH NORCO PO ORDERED. WILL MONITOR FOR EFFECT.
[2019-05-26 09:26] VITALS: BP 113/58
--- NOTE | 2019-05-26 09:35 | NUR ---
PATIENT REMAINS IN BED, WATCHING TV. PER PATIENT BACK AND HIP PAIN HAS DECEASEDTO 4/10 ON THE PAIN SCALE. WILL CONTINUE TO MONITOR.
--- NOTE | 2019-05-26 12:08 | NUR ---
PATIENT C/O HAVING A H/A 6/10 ON THE PAIN SCALE. MEDICATED WITH TYLENOL PO ORDERED. WILL MONITOR FOR EFFECT.
[2019-05-26 12:54] VITALS: BP 105/59
--- NOTE | 2019-05-26 13:08 | NUR ---
PATIENT SITTING UP IN BED TALKING ON PHONE. PER PATIENT HER H/A HAS DECREASED AND THAT SHE FEELS A LITTLE BETTER. IVF HEPLOCKED ORDERED.
--- NOTE | 2019-05-26 14:25 | NUR ---
PHYSICAL THERAPY DAILY NOTES CO-SIGN All documentation done by the Bottle Packing Machine Cleaner for 05/26/19 has been reviewed. I agree with the documentation. Reviewed/Co-Signed by: Deb Huntley PT Documentation Done by: YANET HYMAN PTA
--- NOTE | 2019-05-26 15:37 | NUR ---
PATIENT REMAINS IN BED WATCHING TV. NO CHANGE IN CONDITION NOTED. NO FURHTER C/O PAIN OR DISCOMFORT.
--- NOTE | 2019-05-26 16:48 | NUR ---
PATIENT REMAINS IN BED, APPEARS TO BE RESTING WELL. NO FURTHER C/O PAIN OR DISCOMFORT.
--- NOTE | 2019-05-26 16:58 | NUR ---
PATIENT'S PLAN OF CARE WAS DISCUSSED AND REVIEWED WITH BARREL WASHER:JEWEL RIBEIRO. I HAVE REVIEWED THE DATA COLLECTION BY BARREL WASHER (NAME):JEWEL RIBEIRO. ENTERED ON (DATE/TIME):05/26/19. I CONCUR WITH THE DATA AND ANY EXCEPTIONS OR COMMENTS ARE LISTED BELOW:'
--- NOTE | 2019-05-26 16:58 | NUR ---
PATIENT IS IN BED WATCHING TV. C/O HAVING A HEADACH, BACKACH AND HIP PAIN. 8/10 ON THE PAIN SCALE. MEDICATED WITH NORCO PO ORDERED. WILL MONITOR FOR EFFECT.
[2019-05-26 17:55] VITALS: BP 120/68
[2019-05-26 19:46] VITALS: BP 109/67
--- NOTE | 2019-05-26 20:00 | NUR ---
RECEIVED PT IN BED, RESTING QUIETLY. ALERT AND ORIENTED. DENIES HEADACHE/DIZZINESS AT THIS TIME. RESP. EVEN AND UNLABORED. LUNG SOUNDS CLEAR. ON ROOM AIR. NO ACUTE DISTRESS NOTED. HL TO LT FA, INTACT AND PATENT. SR ON THE MONITOR, DENIES CHEST PAIN OR ANY DISCOMFORT AT THIS TIME. ASSISTED WITH HS CARE. CALL LIGHT WITHIN REACH. WILL CONTINUE TO MONITOR.
--- NOTE | 2019-05-27 00:43 | NUR ---
NO COMPLAINTS NOTED AT THIS TIME.RESTING QUIETLY, WITH EYES CLOSED, EASILY AROUSABLE.RESP. EVEN AND UNLABORED. NO ACUTE DISTRESS NOTED. WILL CONTINUE TO MONITOR.
--- NOTE | 2019-05-27 02:02 | NUR ---
COMPLAINED OF HEADACHE/BODY PAIN, 5/10, REQUESTING PAIN MED, MEDICATED WITH NORCO ORDERED. WILL CONTINUE TO MONITOR.
[2019-05-27 05:13] VITALS: BP 106/68
--- NOTE | 2019-05-27 06:19 | NUR ---
SLEPT WELL. NO COMPLAINTS NOTED AT THIS TIME. RESP. EVEN AND UNLABORED. NO ACUTE DISTRESS NOTED. AFEBRILE AND VITAL SIGNS STABLE. DUE MEDS GIVEN ORDERED. OLE. WELL. KEPT COMFORTABLE. WILL CONTINUE TO MONITOR.
[2019-05-27 06:35] LABS: CALCIUM 8.9 mg/dL (8.5-10.1); CARBON DIOXIDE 27.3 mmol/L (21-32); CREATININE SERUM 1.4 mg/dL (0.6-1.0); POTASSIUM SERUM 4.9 mmol/L (3.5-5.1)
[2019-05-27 06:42] LABS: BASOPHIL % 1.2 % (0-2); PLATELET COUNT 209 x10^3mcL (130-400)
[2019-05-27 06:52] LABS: RED CELL DISTRIBUTION WIDTH 15.3 % (11.5-14.5)
--- NOTE | 2019-05-27 07:30 | NUR ---
PT ENDORSE TO ME THIS MORNING. LAYING IN BED RESTING. BREATHING EVEN AND UNLABORED ON RA, NO ACUTE RESP DISTRESS OR SOB NOTED. TELE 32 NSR HR 63 NOTED. DENIES ANY CP OR PRESSURE. LAST BM PER PT 05/26. VOIDS FREELY. GEN WEAKNESS WHEN AMB. KNOWS TO CALL FOR ASSIST. IV TO THE LFA INTACT AND PATENT / NO REDNESS OR SWELLILNG NOTED. CALL LIGHT IN REACH. BED IN LOW POSITION. WILL CONTINUE TO MONITOR.
[2019-05-27 08:02] VITALS: BP 111/62
[2019-05-27 11:52] VITALS: BP 107/60
--- NOTE | 2019-05-27 13:56 | NUR ---
EXPLAINED DISCHARGE INSTRUCTIONS, CONTINUED MEDS AND DOCTORS APPOINTMENT SHE MUST MAKE WITH PRIMARY DOCTOR WITHIN THIS WEEK, PT AGREED AND SIGNED ALL DISCHARGE INSTRUCTION. REMOVED IV FROM LFA/CATHETER TIP INTACT/ NO REDNESS OR SWELLING NOTED. REMOVED TELE32 AND RETUNRNED TO TELE ROOM. PENDING STEEL WORKER ARRANGED THROUGHT PTS INSURANCE TO HER HOME AT 1530.
--- NOTE | 2019-05-27 15:31 | NUR ---
PHYSICAL THERAPY DAILY NOTES CO-SIGN All documentation done by the Filament Tester for 05/27/19 has been reviewed. I agree with the documentation. Reviewed/Co-Signed by: Deb Huntley PT Documentation Done by:YANET HYMAN PTA
--- NOTE | 2019-05-27 15:45 | NUR ---
PT AKDE ARRIVED, BLADE PUGA WHEELED PT DOWN TO FRONT OF HOSPITAL. PT IS FEELING BETTER, DENIES ANY DISCOMFORT OR PAIN AT THIS TIME. DISCHARGED.
== END 2019-05-27 15:43 | disposition home or self-care (01) | DRG 426 ==
LOC: ED 11:38 → DU 14:17
PROVIDERS: Emergency Medicine; ADMIT Internal Medicine
DX: E87.1 Hypo-osmolality and hyponatremia (principal); M62.82 Rhabdomyolysis; E27.1 Primary adrenocortical insufficiency; N18.3 Chronic kidney disease, stage 3 (moderate); K52.9 Noninfective gastroenteritis and colitis, unspecified; I12.9 Hypertensive chronic kidney disease with stage 1 through stage 4 chronic kidney disease, or unspecified chronic kidney disease; M60.9 Myositis, unspecified; F32.9 Major depressive disorder, single episode, unspecified; F41.9 Anxiety disorder, unspecified; E78.00 Pure hypercholesterolemia, unspecified; G89.29 Other chronic pain; E03.9 Hypothyroidism, unspecified; Z68.28 Body mass index [BMI] 28.0-28.9, adult; Z88.6 Allergy status to analgesic agent; Z88.2 Allergy status to sulfonamides; Z88.8 Allergy status to other drugs, medicaments and biological substances; Z91.018 Allergy to other foods
CPT/HCPCS: 97110-GP; 97530-GP; G0378; G0480; J1720; J2405; J7030; J7050

== ENCOUNTER 2019-07-01 17:48 | Inpatient (IN) | payer OTHER ==
[~2019-07-01] VITALS: Ht 157.5 cm; Wt 73.5 kg
[2019-07-01 18:47] LABS: PLATELET COUNT 222 x10^3mcL (130-400)
[2019-07-01 18:48] LABS: BASOPHIL % 2.9 % (0-2)
[2019-07-01 18:58] LABS: CALCIUM 9.8 mg/dL (8.5-10.1); CHLORIDE SERUM 95 mmol/L (98-107); CREATININE SERUM 1.6 mg/dL (0.6-1.0); GFR1 36 mL/min; GLUCOSE SERUM 99 mg/dL (74-106); POTASSIUM SERUM 4.7 mmol/L (3.5-5.1); SODIUM SERUM 131 mmol/L (136-145)
[2019-07-01 19:09] LABS: ALBUMIN 4.1 g/dL (3.4-5.0); ALKALINE PHOSPHATASE 88 U/L (46-116); ALT/SGPT 28 U/L (14-59); AST/SGOT 70 U/L (15-37); BILIRUBIN TOTAL 0.6 mg/dL (0.20-1.00); HDL CHOLESTEROL 52 mg/dL (40-60); LIPASE 319 IU/L (73-393); MAGNESIUM 1.3 mg/dL (1.8-2.4)
[2019-07-01 19:10] LABS: CHOLESTEROL 446 mg/dL (<200); TOTAL PROTEIN, SERUM 9.1 g/dL (6.4-8.2)
[2019-07-01 19:21] LABS: T4(THYROXINE) < 0.5 ug/dL (4.7-13.3)
[2019-07-01] MEDS ORDERED: HYDROCORTISONE5 MG PO (20:04)
[2019-07-01 20:24] LABS: microscopic required? NO
[2019-07-01 20:28] LABS: urine erythrocyte NEGATIVE (NEGATIVE)
[2019-07-01 20:54] LABS: AMPHETAMINE QUAL UR NONE DETECTED (See below)
[2019-07-01 21:56] VITALS: BP 116/62
[2019-07-02 05:28] VITALS: BP 106/65
[2019-07-02 06:45] LABS: BASOPHIL % 0.4 % (0-2); PLATELET COUNT 186 x10^3mcL (130-400)
[2019-07-02 07:15] LABS: CALCIUM 9.4 mg/dL (8.5-10.1); CARBON DIOXIDE 26.1 mmol/L (21-32); CREATININE SERUM 1.8 mg/dL (0.6-1.0); MAGNESIUM 1.3 mg/dL (1.8-2.4); PHOSPHOROUS 3.2 mg/dL (2.5-4.9); POTASSIUM SERUM 5.5 mmol/L (3.5-5.1)
[2019-07-02 07:25] VITALS: BP 112/52
[2019-07-02 15:45] VITALS: BP 92/52
[2019-07-02 19:07] VITALS: BP 90/52
[2019-07-02 22:13] VITALS: Ht 157.5 cm; Wt 73.5 kg
[2019-07-03 06:16] LABS: BASOPHIL % 0.3 % (0-2); PLATELET COUNT 190 x10^3mcL (130-400)
[2019-07-03 06:33] LABS: RED CELL DISTRIBUTION WIDTH 15.4 % (11.5-14.5)
[2019-07-03 07:14] VITALS: BP 87/43
[2019-07-03 08:24] LABS: CALCIUM 8.8 mg/dL (8.5-10.1); CARBON DIOXIDE 26.8 mmol/L (21-32); CREATININE SERUM 1.6 mg/dL (0.6-1.0); POTASSIUM SERUM 4.2 mmol/L (3.5-5.1)
[2019-07-03 16:07] VITALS: BP 87/43
[2019-07-03 17:39] VITALS: BP 87/53
[2019-07-03 19:16] VITALS: BP 82/44
[2019-07-04 00:41] VITALS: BP 97/49
[2019-07-04 04:33] VITALS: BP 88/48
[2019-07-04 06:47] LABS: CALCIUM 8.4 mg/dL (8.5-10.1); CARBON DIOXIDE 25.9 mmol/L (21-32); CREATININE SERUM 1.4 mg/dL (0.6-1.0); MAGNESIUM 1.9 mg/dL (1.8-2.4); POTASSIUM SERUM 4.5 mmol/L (3.5-5.1)
[2019-07-04 07:28] VITALS: BP 89/52
[2019-07-04 08:19] LABS: BASOPHIL % 0.8 % (0-2); PLATELET COUNT 164 x10^3mcL (130-400)
[2019-07-04 08:20] LABS: RED CELL DISTRIBUTION WIDTH 16.1 % (11.5-14.5)
[2019-07-04 17:00] VITALS: BP 109/69
[2019-07-04 19:24] VITALS: BP 125/102
[2019-07-05 03:59] VITALS: BP 104/55
[2019-07-05 05:11] VITALS: BP 104/55
[2019-07-05 08:15] VITALS: BP 110/54
[2019-07-05 12:37] VITALS: BP 110/54
== END 2019-07-05 14:00 | disposition home health service (06) | DRG 469 ==
LOC: ED 17:48 → MU 19:37
PROVIDERS: Emergency Medicine; Internal Medicine; ADMIT Internal Medicine
DX: N17.0 Acute kidney failure with tubular necrosis (principal); M62.82 Rhabdomyolysis; E27.1 Primary adrenocortical insufficiency; E87.1 Hypo-osmolality and hyponatremia; E83.42 Hypomagnesemia; N18.3 Chronic kidney disease, stage 3 (moderate); E03.9 Hypothyroidism, unspecified; E87.5 Hyperkalemia; K02.9 Dental caries, unspecified; F41.8 Other specified anxiety disorders; Z91.14 Patient's other noncompliance with medication regimen; Z88.2 Allergy status to sulfonamides; Z88.8 Allergy status to other drugs, medicaments and biological substances; F32.9 Major depressive disorder, single episode, unspecified; M54.9 Dorsalgia, unspecified; G89.29 Other chronic pain; E78.00 Pure hypercholesterolemia, unspecified; I12.9 Hypertensive chronic kidney disease with stage 1 through stage 4 chronic kidney disease, or unspecified chronic kidney disease
CPT/HCPCS: 82962; 83880; 97110-GP; 97116-GP; 97530-GP; G0378; G0480; J1720; J2270; J2405; J3475; J3490; J7030; J7050

== ENCOUNTER 2019-07-06 21:57 | Inpatient (IN) | payer OTHER ==
[~2019-07-06] VITALS: Ht 160 cm; Wt 74.2 kg
[~2019-07-06 21:57] MED LIST changes: +HYDROCORTISONE5 MG PO
[2019-07-11 22:02] VITALS: Ht 160 cm; Wt 74.2 kg
--- NOTE | 2019-07-11 22:36 | NUR ---
PT STATES SHE CALLED AMBULANCE DUE TO HAVING CHEST PAIN AND MUSCLE CRAMPS. STATES SHE FEELS WEAKNESS AND FELL 1 HOUR PRIOR TO CALLING AMBULANCE. SHE STATES HAS BEEN HAVING N/V SINCE LAST NIGHT. A/O X4. RESP EVEN/UNLABORED.
[2019-07-11 23:15] LABS: BASOPHIL % 1.1 % (0-2); PLATELET COUNT 205 x10^3mcL (130-400)
[2019-07-11 23:18] LABS: RED CELL DISTRIBUTION WIDTH 15.3 % (11.5-14.5)
[2019-07-11 23:22] LABS: CARBON DIOXIDE 23.4 mmol/L (21-32); CREATININE SERUM 1.4 mg/dL (0.6-1.0); POTASSIUM SERUM 3.6 mmol/L (3.5-5.1)
[2019-07-11 23:26] LABS: ALBUMIN 4.3 g/dL (3.4-5.0); BILIRUBIN TOTAL 1.28 mg/dL (0.20-1.00)
[2019-07-11 23:27] LABS: TOTAL PROTEIN, SERUM 8.9 g/dL (6.4-8.2)
--- NOTE | 2019-07-11 23:40 | NUR ---
PT DENIES PAIN AT THIS TIME AND IS RESTING COMFORTABLY IN BED. RN ATTEMPTED 2 IV TRIES UNSUCCESSFULLY. MADE AWARE AND CHAMGED DECADRON ORDER FROM IV TO IM. PT TOLERATED IM INJECTION WELL.
--- NOTE | 2019-07-12 02:21 | NUR ---
REPORT GIVEN TO AGUILA LARSEN TO ASSUME CARE OF PT.
--- NOTE | 2019-07-12 02:30 | NUR ---
RECEIVED PT FROM ED VIA BED, PT STATES COMING TO HOSPITAL BECAUSE OF GENERALIZED WEAKNESS AND SOB. PT AAOX4, ABLE TO FOLLOW COMMANDS AND MAKE NEEDS KNOWN. ON TELE#2O READING NSR HR AT 67. C/O CP THAT RADIATES TO LEFT SIDE OF ARM. STATES "IT HURTS EVERYWHERE". PALPABLE PULSES TO ALL EXTREMETIES. EDEMA TO BLE NOTED. LUNG SOUNDS CTA. BREATHING EVEN AND UNLABORED ON RA. NO ACUTE DISTRESS NOTED. PT C/O SOB ON EXERTION. STATES HAVING SOB WHEN ASLEEP. ABD SOFT ADN NONDISTENDED. ACTIVE BS X4 QUAD. SATES HAVING NAUSEA EARLIER BUT DENIES ANY NAUSEA AT THIS TIME. DENIES V/D. VOIDS FREELY, BRP. GENERALIZED WEAKNESS. AMBULATORY. C/O 10/10 BACK PAIN, NO ALLEVIATING FACTORS. IV TO MARVA PATENT AND INTACT. SITE FREE FROM REDNESS AND SWELLING. REORIENT PT TO ROOM, CALL LIGHT WITHING REACH. BED AT LOWEST SETTING. SIDE RAILS X2 UP. CALL LIGHT WITHING REACH. WILL CONT TO MONITOR.
--- NOTE | 2019-07-12 02:37 | NUR ---
PT TRANSFERRED TO ED ACCOMPANIED BY NURSE AND EMT. PT CONNECTED TO MONITOR. DURING TRANSFER. NO S/S OF DISTRESS. RESP E/U. IV SITE PATENT.
--- NOTE | 2019-07-12 03:00 | NUR ---
PT C/O 05/27 BACK PAIN NO ALLEVIATING FACTORS. MEDICATED WITH PRN NORCO PER OCT. NO ACUTE DISTRESS NOTED. WILL CONT TO MONITOR.
[2019-07-12 03:12] VITALS: BP 122/69
[2019-07-12 05:15] VITALS: BP 102/57
--- NOTE | 2019-07-12 06:15 | NUR ---
PT SLEPT AT INTERVALS THROUGHOUT THE SHIFT, BREATHING EVEN AND UNLABORED ON RA. NO ACUTE DISTRESS NOTED. ALL NEEDS ASSESSED AND ATTENDED TO. IV TO RUE PATENT AND INTACT. SITE FREEE FROM REDNESS AND SWELLING. BED AT LOWEST SETTING. SIDE RAILS X2 UP. CALL LIGHT WITHING REACH. WILL ENDORSE CARE TO AM NURSE.
--- NOTE | 2019-07-12 06:49 | NUR ---
PT C/O H/A PAIN, MEDICATED WITH PRN TYLENOL PER MAR. NO ACUTE DISTRESS NOTED. WILL ENDORSE CARE TO AM NURSE.
--- NOTE | 2019-07-12 08:45 | NUR ---
PT SITTING UP IN BED. NO ACUTE RESP DISTRESS NOTED ON RA. DENIES SOB. PT C/O PAIN 03/27 GENERALIZED BODY CRAMPING AND PERSISTENT CAM. MEDICATED PER EMAR. IV TO RW PATENT AND INFUSING. NO REDNESS OR SWELLING NOTED. ASSISTED PT OUT OF BED TO BATHROOM. SLOW BUT STEADY GAIT. WILL CONTINUE TO MONITOR. CALL LIGHT IN REACH. BED IN LOWEST POSITION.
[2019-07-12 08:51] VITALS: BP 115/82
--- NOTE | 2019-07-12 10:04 | NUR ---
RECEIVED PT FROM SKIP MINER BLASTING RN. Bruno/DINO. TELE#20. DENIES CHEST PAIN/PRESSURE. RESPIRATIONS EQUAL AND UNLABORED ON RA. DENIES SOB. PT C/O SOB ON EXCERTION. PT C/O GENERALIZED BODY CRAMPING, WEAKNESS AND PERSISTENT CAM. PT STATES "THE TYLENOL HELPED A LITTLE BUT CAM IS STILL THERE." IV TO RAC PATENT AND INFUSING. NO REDNESS OR SWELLING NOTED. WILL CONTINUE TO MONITOR. CALL LIGHT IN REACH. BED IN LOWEST POSITION.
--- NOTE | 2019-07-12 11:59 | NUR ---
PT SITTING UP IN BED. PT C/O CAM 8/ THROBBING. ASKED PT IF TYLENOL OR NORCO HELPED WITH CAM THIS MORNING. PT STATES "THE TYLENOL HELPED MORE WITH MY CAM." MEDICATED PER EMAR. PT DENIES ANY DIZZINESS OR SOB AT THIS TIME. WILL CONTINUE TO MONITOR. CALL LIGHT IN REACH. BED IN LOWEST POSITION.
--- NOTE | 2019-07-12 12:52 | NUR ---
PT SITTING UP IN BED. NO ACUTE RESP DISTRESS NOTED ON RA. PT DENIES ANY SOB AT THIS TIME. PT STATES CAM HAS IMPROVED WITH TYLENOL. PT C/O PAIN 7/10 GENERALIZED BODY CRAMPING. MEDICATED PER EMAR. GIVEN PO MEDS. TOLERATED WELL. IV PATENT AND INFUSING TO MARVA. NO REDNESS OR SWELLING NOTED. WILL CONTINUE TO MONITOR. CALL LIGHT IN REACH. BED IN LOWEST POSITION.
[2019-07-12 13:07] VITALS: BP 106/65
[2019-07-12 14:34] LABS: CALCIUM 8.6 mg/dL (8.5-10.1); CARBON DIOXIDE 22.9 mmol/L (21-32); CREATININE SERUM 1.5 mg/dL (0.6-1.0); POTASSIUM SERUM 4.5 mmol/L (3.5-5.1)
--- NOTE | 2019-07-12 15:19 | NUR ---
PT SITTING UP IN BED. NO ACUTE RESP DISTRESS NOTED ON RA. PT INFORMED NEED A URINE SAMPLE. TOLD PT TO CALL WHEN NEEDING HELP TO BATHROOM. PT INFORMED OF FLUIDS RESTRICTION OF 1L PER DAY. PT VERBALIZED UNDERSTANDING. WILL CONTINUE TO MONITOR. CALL LIGHT IN REACH. BED IN LOWEST POSITION.
[2019-07-12 16:26] VITALS: BP 103/83
--- NOTE | 2019-07-12 17:40 | NUR ---
PT SITTING UP IN BED. NO ACUTE RESP DISTRESS NOTED ON RA. PT DENIES ANY PAIN AT THIS TIME. GIVEN PO MEDS. TOLERATED WELL. OBTAINED URINE SPECIMEN. TAKEN TO LAB. IV TO MARAV PATENT AND INFUSING. NO REDNESS OR SWELLING NOTED. WILL CONTINUE TO MONITOR. CALL LIGHT IN REACH. BED IN LOWEST POSITION.
--- NOTE | 2019-07-12 19:35 | NUR ---
RECEIVED PT FROM AM NURSE, PT LAYING DOWN IN BED. PT AAOX4, ABLE TO FOLLOW COMMANDS AND MAKE NEEDS KNOWN. ON TELE#20 READING SR AT 68. DENIES CP/PRESSURE AT THIS TIME. PALPABLE PULSES TO ALL EXTREMETIES. TRACE EDEMA TO BLE NOTED. LUNG SOUNDS CTA. BREATHING EVEN AND UNLABORED ON RA. C/O SOB AT TIMES. NO ACUTE DISTRESS NOTED. ABD SOFT AND NONDISTENDED. ACTIVE BS X4 QUAD. DENIES N/V/D, VOIDS FREELY, BRP. GENERALIZED WEAKNESS, AMBULATORY WITH ASSIST. C/O GENERALIZED PAIN, STATES "MY WHOLE BODY HURTS". IV TO MARVA PATENT AND INTACT. SITE FREE FROM REDNESS AND SWELLING. BED AT LOWEST SETTING. SIDE RAILS X2 UP. CALL LIGHT WITHING REACH. WILL CONT TO MONITOR.
[2019-07-12 20:33] VITALS: BP 100/66
--- NOTE | 2019-07-13 00:17 | NUR ---
PT C/O INSOMNIA, MEDICATED WITH PRN AMBIEN PER OCT. NO ACUTE DISTRESS NOTED. WILL CONT TO MONITOR.
--- NOTE | 2019-07-13 05:50 | NUR ---
PT SLEPT AT INTERVALS THROUGHOUT THE NIGHT, PT STATES HAVING DIFFICULTY SLEEPING. PUT PT ON 1L NC FOR COMFORT, DUE TO PT STATING "I WAKE UP IN THE MIDDLE OF THE NIGHT GASPING FOR AIR" TOLERATING WELL. ALL NEEDS ASSESSED AND ATTENDED TO. BED AT LOWEST SETTING. SIDE RAILS X2 UP. CALL LIGHT WITHING REACH. WILL ENDORSE CARE TO AM NURSE.
[2019-07-13 06:01] VITALS: BP 121/68
[2019-07-13 06:19] LABS: PLATELET COUNT 228 x10^3mcL (130-400)
[2019-07-13 06:43] LABS: CARBON DIOXIDE 25.9 mmol/L (21-32); CREATININE SERUM 1.5 mg/dL (0.6-1.0); POTASSIUM SERUM 4.1 mmol/L (3.5-5.1)
[2019-07-13 07:02] LABS: RED CELL DISTRIBUTION WIDTH 15.4 % (11.5-14.5)
--- NOTE | 2019-07-13 07:29 | NUR ---
RECEIVED CRITICAL WBC OF 20.2. CALLED DR. LANIER TO REPORT WBC OF 20.2. PER DR. LANIER ORDERED BLOOD CULTURES X2 15 MINUTES APART STAT. CONFIRMED ORDER TORB. ORDER PLACED.
--- NOTE | 2019-07-13 07:30 | NUR ---
RECEIVED PT FROM CASINO FLOOR WALKER RN. Bruno/DINO. TELE#20. DENIES CHEST PAIN/PRESSURE. RESPIRATIONS EQUAL AND UNLABORED ON RA. DENIES ANY SOB AT THIS TIME. PT C/O CAM. WILL MEDICATE PER EMAR. PT DENIES ANY ABDOMINAL PAIN AT THIS TIME. PT DENIES ANY N/V. IV TO MARVA PATENT AND INFUSING. NO REDNESS OR SWELLING NOTED. WILL CONTINUE TO MONITOR. CALL LIGHT IN REACH. BED IN LOWEST POSITION.
[2019-07-13 09:09] LABS: ATYPICAL LYMPH 0 %; BAND NEUTROPHIL 2 % (0-10); BASOPHIL 0 % (0-2); MONOCYTE 11 % (0-7); SEGMENTED NEUTROPHILS 64 % (37-75)
[2019-07-13 09:10] LABS: rbc morphology (normal/abnorm) ABNORMAL (NORMAL)
[2019-07-13 09:43] VITALS: BP 102/55
--- NOTE | 2019-07-13 09:59 | NUR ---
PT SITTING UP IN BED. NO ACUTE RESP DISTRESS NOTED ON RA. PT C/O CAM STILL UNRELIEVED BY TYLENOL. MEDICATED PER EMAR. PT C/O NAUSEA. WENT TO ADMINISTER PHENEGRAN. PT ALLERGIC TO PHENERGRAN. CALLED DR. LANIER REGARDING PHENEGRAN ORDER. PER DR. LANIER DISCONTINUE MEDICATION, ORDER ZOFRAN 4MG IVP Q4HR PRN N/V. CONFIRMED ORDER TORB. LAB AT BEDSIDE FOR BLOOD CULTURES. WILL CONTINUE TO MONITOR. CALL LIGHT IN REACH. BED IN LOWEST POSITION.
[2019-07-13 12:24] VITALS: BP 95/53
--- NOTE | 2019-07-13 12:27 | NUR ---
PT SITTING UP IN BED. NO ACUTE RESP DISTRESS NOTED ON RA. PT C/O NAUSEA. PT STATES NAUSEA HAS NOT IMPROVED SINCE THIS AM. MEDICATED PER EMAR. PT DENIES ANY PAIN AT THIS TIME. IV TO MARVA PATENT AND INFUSING. NO REDNESS OR SWELLING NOTED. WILL CONTINUE TO MONITOR. CALL LIGHT IN REACH. BED IN LOWEST POSITION.
--- NOTE | 2019-07-13 14:11 | NUR ---
PT SITTING UP IN BED. NO ACUTE RESP DISTRESS NOTED ON RA. PT STATES NAUSEA HAS IMPROVED SINCE RECEIVING ZOFRAN. IV PATENT AND INFUSING TO MARVA. NO REDNESS OR SWELLING NOTED. WILL CONTINUE TO MONITOR. CALL LIGHT IN REACH. BED IN LOWEST POSITION.
--- NOTE | 2019-07-13 14:51 | NUR ---
PHYSICAL THERAPY NOTE ATTEMPTED FOR SCHADULED PHYSICAL THERAPY SESSION, PATIENT REFUSED DUE TO BEING TOO SLEEPY
--- NOTE | 2019-07-13 15:44 | NUR ---
RECEIVED AN ORDER FROM TO ADD ENSURE TO EVERY PT MEAL AND HE SAID THE ENSURE IS NOT INCLUDED TO PT FLUID RESTRICTION AND HE VERIFIED THAT FLUID RESTRICTION IS ONLY FOR WATER INTAKE. JUAN R SHEEHAN ASSIGNED TO THIS PT MADE AWARE OF ABOVE.
[2019-07-13 18:43] VITALS: BP 112/56
--- NOTE | 2019-07-13 18:54 | NUR ---
PT SITTING UP IN BED. NO ACUTE RESP DISTRESS NOTED ON RA. PT STATES PAIN HAS IMPROVED SINCE RECEIVING NORCO. IV TO RFA PATENT AND INFUSING. NO REDNESS OR SWELLING NOTED. WILL ENDORSE CARE TO VICE PRESIDENT RISK MANAGEMENT RN. CALL LIGHT IN REACH. BED IN LOWEST POSITION.
--- NOTE | 2019-07-13 19:25 | NUR ---
RECEIVED REPORT FROM DAY SHIFT NURSE, JUAN R SHEEHAN. PT IS AAOX4. SPEECH IS CLEAR. DENIES CAM. TELE #20 READING SR 66. PULSES ARE PALPABLE. EDEMA NOTED TO BLE. BREATHING IS EVEN AND UNLABORED ON RA. LUNG SOUNDS CTA. NO SIGNS OF RESP. DISTRESS. ABD IS SOFT AND ROUND. VOIDS FREELY. NO PAIN UPON URINATION. GENERALIZED WEAKNESS. SKIN INTACT. DENIES PAIN AT THIS TIME. IV ON RFA DRY AND INTACT. NO ERYTHEMA NOTED. BED IN LOWEST POSITION. CALL LIGHT WITHIN REACH. WILL CONTINUE TO MONITOR.
[2019-07-13 19:52] VITALS: BP 102/53
--- NOTE | 2019-07-13 22:04 | NUR ---
ROUTINE MEDICATIONS WERE GIVEN AND TOLERATED WELL. NO ACUTE DISTRESS NOTED. PT C/O 8/10 PRESSURE/SHARP PAIN ON BACK. NORCO 10MG PO GIVEN PER OCT ORDER. REASSESSED PAIN LEVEL, PT STATED PAIN IS NOW AT 3/10. BREATHING IS EVEN AND UNLABORED ON 2LNC. PT STATED SHE WAS FEELING SOB AFTER AMBULATING BACK FROM THE BATHROOM. BED IN LOWEST POSITION. CALL LIGHT WITHIN REACH. WILL CONTINUE TO MONITOR.
--- NOTE | 2019-07-14 00:17 | NUR ---
PT IS RESTING COMFORTABLY WITH EYES CLOSED, BUT EASILY AROUSABLE WHEN SPOKEN TO. BREATHING IS EVEN AND UNLABORED ON 2LNC. NO SIGNS OF RESP. DISTRESS. BED IN LOWEST POSITION. CALL LIGHT WITHIN REACH. WILL CONTINUE TO MONITOR.
--- NOTE | 2019-07-14 01:36 | NUR ---
PT REQUESTED FOR MELANIE BC SHE IS HAVING DIFFICULTY SLEEPING. WILL ADMINISTER PER OCT ORDER. BREATHING IS EVEN AND UNLABORED ON 2LNC. NO SIGNS OF RESP. DISTRESS. BED IN LOWEST POSITION. CALL LIGHT WITHIN REACH. WILL CONTINUE TO MONITOR.
--- NOTE | 2019-07-14 03:38 | NUR ---
PT IS RESTING COMFORTABLY WITH EYES CLOSED, BUT EASILY AROUSABLE WHEN SPOKEN TO. BREATHING IS EVEN AND UNLABORED ON 2LNC. NO SOB NOTED. BED IN LOWEST POSITION. CALL LIGHT WITHIN REACH. WILL CONTINUE TO MONITOR.
--- NOTE | 2019-07-14 04:40 | NUR ---
PT SLEPT IN INTERVALS THROUGHOUT THE NIGHT AND COMPLIED WITH NURSING CARE WITH NO ACUTE EVENTS OCCURRING DURING THE SHIFT. COMFORT AND SAFETY MEASURES MAINTAINED. ALL NEEDS ASSESSED AND ATTENDED TO. BED IN LOWEST POSITION. CALL LIGHT WITHIN REACH. WILL CONTINUE TO MONITOR AND ENDORSE CARE TO DAY SHIFT NURSE.
[2019-07-14 05:31] VITALS: BP 99/53
[2019-07-14 06:25] LABS: BASOPHIL % 0.1 % (0-2); PLATELET COUNT 171 x10^3mcL (130-400)
[2019-07-14 06:50] LABS: CALCIUM 8.5 mg/dL (8.5-10.1); CARBON DIOXIDE 23.6 mmol/L (21-32); CREATININE SERUM 1.6 mg/dL (0.6-1.0); POTASSIUM SERUM 3.9 mmol/L (3.5-5.1)
[2019-07-14 07:22] LABS: RED CELL DISTRIBUTION WIDTH 15.8 % (11.5-14.5)
--- NOTE | 2019-07-14 07:50 | NUR ---
RECEIVED PATIENT RESTING IN BED. NO ACUTED DISTRESS NOTED. PATIENT DENIES SOB, ON ROOM AIR, LUNG SOUNDS CTA. DENIES CHEST PAIN, TELE MONITOR IN PLACE. PATIENT A/OX4, FORGETFUL AT TIMES. PATIENT AWARE SHE IS STRICT I&OS. GENERALIZED WEAKNESS NOTED, BED ALARM ON FOR SAFETY PRECAUTION. NS IV INFUSING TO RFA, IV SITE CDI&PATENT. CALL LIGHT WITHIN REACH, BED IN LOW POSITION. WILL CONTINUE TO MONITOR FOR CHANGES.
--- NOTE | 2019-07-14 09:00 | NUR ---
ASSISTED PATIENT TO THE BATHROOM AT THIS TIME, SLOW & UNSTEADY GAIT NOTED. WILL CONTINUE TO MONTIOR.
[2019-07-14 09:03] VITALS: BP 91/53
--- NOTE | 2019-07-14 12:00 | NUR ---
Initial Nutrition Assessment: 220T/A KATHRYN COOK [place] HR Dx: Hyponatremia PMHx: [place]'s disease, CKD, rhabdomyolysis, hyponatremia PSHx: none Labs: CREAT 1.6H, AST 94H, CK 5842H, WBC 13.5H Meds: Ambien, cortef, morphine, norco, synthyroid, zofran Diet: Regular, FR 1L/day, Ensure TID PO intake since admission: (07/13) breakfast, dinner 100%, (07/12) dinner, lunch 80%, breakfast 60% Ht: 160.02 cm (63") Wt: 74.1 kg (163#) BMI: 29 kg/m2 Bed scale: 163# IBW: 115# (52 kg) %IBW: 141 UBW: 163# Age: 53/F Food Allergies: Tomato Skin: intact Yoseph: 20 Edema: none GI: Last BM: 07/11 Trigger: N/V/D >3d, poor PO >3d Per H&P, Pt is a 53 YO F with PMHx of [place]'s disease, CKD, rhabdomyolysis, hyponatremia who has over the last few days had multiple visits to ED for generalized weakness. RD Note (07/14): Patient said that she is eating good and is drinking ONS Ensure. Patient's diet order mentions fluid restriction of 1L/day and to add Ensure TID. However, per patient doctor told her that she can consume juices. Per AGUILA Betancourt, doctor mentioned the fluid restriction was just for water. Spoke with AGUILA Betancourt that kitchen will provide dry drays unless the diet order specifies about fluid restriction. Problem with: N/V/D/C: none at this time Problems with: Chewing: Swallowing: none Current appetite: good Recent wt change: none %wt change: n/a Vitamin/Supplement use: none Special diet at home: Regular Physical activity: sedentary Nutrition education given: Patient was asked about her diet intake and appetite at home. Patient said that she eats pretty good at home and has some episodes of poor appetite. Patient said that he problem of hyponatremia is due to [place]'s disease and that she eats regular food at home and does not follow a sodium restricted diet. Patient was advised to not stay for long periods without eating food. Food-drug interactions: none Education given: n/a Estimated Nutritional Needs Based on adjusted body weight (58 kg) Energy: 7193-6941 kcal/day (25-30 kcal/kg for maintenance) Protein: 46-58 g/day (0.8-1.0 g/kg for maintenance vs CKD) Fluid: 8234-5304 mL/day (1 mL/kcal) Nutrition Diagnosis: 1. Altered nutrition related lab values related to renal/ endocrine dysfunction as evidenced by CREAT 1.6. Intervention 1. Recommend continuing Regular diet with Ensure TID and FR 1L/day as ordered by the physician. Monitor/Evaluate Goal: PO intake at least 75% of estimated needs Monitor: PO intake, Labs, GI function F/U in 3-5 days as moderate risk 07/17-07/19
--- NOTE | 2019-07-14 12:00 | NUR ---
1. Recommend continuing Regular diet with Ensure TID and FR 1L/day as ordered by the physician.
[2019-07-14 13:19] VITALS: BP 98/43
--- NOTE | 2019-07-14 15:48 | NUR ---
PATIENT C/O OF BACK PAIN 02/24, MEDICATED PATIENT WITH NORCO PER PROTOCOL (SEE EMAR). EDUCATED PATIENT ON PAIN MANAGEMENT. ALL NEEDS MET AT THIS TIME. WILL CONTINUE TO MONITOR.
[2019-07-14 16:55] VITALS: BP 87/45
--- NOTE | 2019-07-14 18:00 | NUR ---
PATIENT RESTING IN BED, NO ACUTE CHANGES NOTED THROUGH OUT SHIFT. PATIENT STABLE, PATIENT DENIES PAIN. CALL LIGHT WITHIN REACH, BED IN LOW POSITION. WILL CONTINUE TO MONTIOR AND ENDORSE REPORT.
--- NOTE | 2019-07-14 19:35 | NUR ---
Pt. received from day shift, currently resting in bed awake and alert w/ no s/o of distress, c/o of chest pain, SOB, or pain in general. Pt. currently requesting for an andorid credit review analyst, and will ask rn progressive care unit if we have one. Pt. known to get up from bed w/o help as per day shift, fall risk precautions put in place w/ bed set at lowest position w/ bed alarm on. Pt. also educated on when and how to use call light system, call light system placed within reach. Will continue to monitor pt. at this time.
[2019-07-14 19:36] VITALS: BP 90/45
--- NOTE | 2019-07-14 22:10 | NUR ---
Pt. c/o of 5/10 shoulder and back pain at this time, will medicate with norco as ordered and continue to monitor pt. at this time. Pt. is resting in bed and watching tv. Pt. mentioned eliceolier that she'll be needing an Ambien tonight as prescribed, and medication will be offered with the pain medication at this time. will continue to monitor pt.
--- NOTE | 2019-07-14 22:16 | NUR ---
Pt. medicated with Scio as ordered, will continue to monitor pt at this time. Pt. offered ambien, but pt. refused at this time. Pt. said that she is a night owl and will call the RN when she is ready for her sleeping pill. Bed set at lowest position, bed alarm on, call light placed within reach, will continue to monitor pt. at this time.
--- NOTE | 2019-07-15 00:53 | NUR ---
Pt. currently resting in bed, awake and alert, watching tv. Pt. requesting for ambien at this time, will administer as prescribed and continue to monitor.
[2019-07-15 05:27] VITALS: BP 92/53
--- NOTE | 2019-07-15 05:56 | NUR ---
Pt. asleep for most of the night, pt. requested for ambien around 0100 this morning and a norco for pain around 2215 last night. otherwise, pt. has been stable, voiced worries and sadness about not being able to sleep, and was able to ambulate to the restroom last night with slow and unsteady gate noted. Pt. at this time has no c/o of pain, no c/o of SOB or chest pain, will continue to monitor pt. at this time until the end of shift and endorse to next shift RN.
[2019-07-15 06:41] LABS: BASOPHIL % 0.6 % (0-2); PLATELET COUNT 146 x10^3mcL (130-400)
[2019-07-15 07:19] LABS: CALCIUM 8.4 mg/dL (8.5-10.1); CARBON DIOXIDE 26.7 mmol/L (21-32); CREATININE SERUM 1.5 mg/dL (0.6-1.0); POTASSIUM SERUM 4.3 mmol/L (3.5-5.1)
--- NOTE | 2019-07-15 07:50 | NUR ---
RECEIVED PATIENT RESTING IN BED, NO ACUTE DISTRESS NOTED. PATIENT ALERT/ORIENTATEDX4, DENIES HEADAHE. TELE MONITOR IN PLACE, DENIES CHEST PAIN. PATIENT REPORTS BEING UNABLE TO SLEEP THROUGH THE NIGHT, PATIENT REQUESTED FOR A PRESCRIPTION FOR MELANIE OLIVEIRA, WILL NOTIFY . PATIENT REPORT CONTINOUS NASAL CONGESTION, WILL GIVE LINO-SYNEPHRINE NASAL SPRAY PER PROTOCOL NEEDED. PATIENT AWARE OF STRICT I&OS. PATIENT AMBULATORY WITH ASSISTANCE, INSTRUCTED PATIENT TO USE CALL LIGHT NEEDED. NS IV INFSUING TO RFA, CDI&PATENT. CALL LIGHT WITHIN REACH, BED IN LOW POSTION, WILL CONTINUE TO MONITOR.
[2019-07-15 08:31] VITALS: BP 109/53
--- NOTE | 2019-07-15 10:49 | NUR ---
PATIENT WAS C/O MODERATE GENERALIZED PAIN 02/24, MEDICATED PATIENT WITH NORCO PER PROTOCOL (SEE EMAR). EDUCATED PATIENT ON PAIN MANAGEMENT. ALL NEEDS MET AT THIS TIME, WILL CONTINUE TO MONITOR & MANAGE PAIN.
[2019-07-15 11:47] VITALS: BP 101/57
--- NOTE | 2019-07-15 13:25 | NUR ---
CONTACTED [facility] @ , SPOKE TO YULY; STATED THAT [employer] S/B CALLED INSTEAD FOR VERIFICATION OF TRANSPORTATION SETUP; ALSO ADVICED THAT INSURANCE IS CLOSED TODAY, AND MOST LIKELY [employer] WILL NOT BE ABLE TO HELP IF NO AUTH HAS BEEN ISSUED.
--- NOTE | 2019-07-15 13:34 | NUR ---
[facility] TRANSFERRED CALL TO [employer] @ , SPOKE TO MARIA C; WAS UNABLE TO HELP W/ SETTING UP TRANSPORTATION FOR PT D/T NOT HAVING RECEIVED PRIOR AUTH FROM INSURANCE, [place] TODAY D/T [facility] HOLIDAY.
--- NOTE | 2019-07-15 13:35 | NUR ---
PATIENT IS TO BE DISCHARGED HOME, PATIENT STATED SHE DOES NOT HAVE TRANSPORTATION AT THIS TIME. CHARGE NURSE MARYJO MADE AWARE, AND NOTIFY WAX MOLDER.
[2019-07-15 13:48] VITALS: BP 101/57
--- NOTE | 2019-07-15 14:20 | NUR ---
PATIENT WAS DISCHARGE HOME AT THIS TIME, PATIENT RECEIVED COPY OF D/C INSTRUCTIONS, PATIENT UNDERSTANDS AND AGREES WITH D/C INSTRUCTIONS & PLAN OF CARE, INCLUDING MEDICATIONS & FOLLOW UP CARE. ALL QUESTIONS AND CONCERNS ADDRESSED. PATIENT TOOK HOME ALL PERSONAL BELONGINGS. PATIENT TAKEN DOWN VIA WHEELCHAIR BY INSTRUCTOR INDUSTRIAL DESIGN. PATIENT WAS PROVIDED TRANSPORTATION VIA [employer]. IV TO RFA REMOVED, CATH INTACT. ARMBANDS & TELE MONTIOR REMOVED.
== END 2019-07-15 14:20 | disposition home or self-care (01) | DRG 469 ==
LOC: ED 07-11 21:57 → DU 07-12 00:30
PROVIDERS: Emergency Medicine; Internal Medicine; ADMIT Internal Medicine
DX: N17.9 Acute kidney failure, unspecified (principal); R65.10 Systemic inflammatory response syndrome (SIRS) of non-infectious origin without acute organ dysfunction; E27.1 Primary adrenocortical insufficiency; E87.1 Hypo-osmolality and hyponatremia; I45.81 Long QT syndrome; N18.3 Chronic kidney disease, stage 3 (moderate); E03.9 Hypothyroidism, unspecified; F41.9 Anxiety disorder, unspecified; G47.00 Insomnia, unspecified; F32.9 Major depressive disorder, single episode, unspecified; E78.00 Pure hypercholesterolemia, unspecified; G89.29 Other chronic pain; Z79.82 Long term (current) use of aspirin; Z88.2 Allergy status to sulfonamides; Z88.8 Allergy status to other drugs, medicaments and biological substances; Z91.018 Allergy to other foods; Z79.899 Other long term (current) drug therapy
CPT/HCPCS: 83880; G0378; J1100; J1956; J2405; J2550; J7030; Q0092

== ENCOUNTER 2019-07-11 03:17 | Emergency (ER) | payer OTHER ==
[~2019-07-11] VITALS: Ht 160 cm; Wt 63.5 kg
[2019-07-11 03:24] VITALS: Ht 160 cm; Wt 63.5 kg
[2019-07-11 05:21] LABS: CALCIUM 9.3 mg/dL (8.5-10.1); CARBON DIOXIDE 27.9 mmol/L (21-32); CREATININE SERUM 1.4 mg/dL (0.6-1.0); POTASSIUM SERUM 3.9 mmol/L (3.5-5.1)
[2019-07-11 05:33] LABS: microscopic required? YES; urine erythrocyte 3+ (NEGATIVE)
[2019-07-11 05:36] LABS: ALBUMIN 4.1 g/dL (3.4-5.0); FREE T4 0.13 ng/dL (0.76-1.46); MAGNESIUM 1.6 mg/dL (1.8-2.4)
[2019-07-11 05:37] LABS: TOTAL PROTEIN, SERUM 8.7 g/dL (6.4-8.2)
[2019-07-11 06:04] LABS: BASOPHIL % 1.6 % (0-2); PLATELET COUNT 215 x10^3mcL (130-400); RED CELL DISTRIBUTION WIDTH 15.5 % (11.5-14.5)
[2019-07-11 08:48] VITALS: BP 135/87
== END 2019-07-11 08:48 | disposition home or self-care (01) ==
LOC: ED 03:17
PROVIDERS: Emergency Medicine
DX: E87.1 Hypo-osmolality and hyponatremia (principal); R09.81 Nasal congestion; N18.1 Chronic kidney disease, stage 1; F41.9 Anxiety disorder, unspecified; F32.9 Major depressive disorder, single episode, unspecified; G89.29 Other chronic pain; M54.9 Dorsalgia, unspecified; E78.00 Pure hypercholesterolemia, unspecified; Z88.2 Allergy status to sulfonamides; Z88.1 Allergy status to other antibiotic agents; Z88.8 Allergy status to other drugs, medicaments and biological substances; Z91.018 Allergy to other foods
CPT/HCPCS: 36415; 83880; 84439

== ENCOUNTER 2019-07-29 19:14 | Inpatient (IN) | payer OTHER ==
[~2019-07-29] VITALS: Ht 157.5 cm; Wt 73.5 kg
[2019-07-29 20:00] VITALS: Ht 157.5 cm; Wt 73.5 kg
--- NOTE | 2019-07-29 20:54 | NUR ---
DR VALLES AT BEDSIDE FOR MSE.
--- NOTE | 2019-07-29 21:13 | NUR ---
PT REQUESTING BASIC LAB. SHE THINKS SHE HAS LOW SODIUM.
[2019-07-29 21:29] LABS: CALCIUM 9.9 mg/dL (8.5-10.1); CARBON DIOXIDE 27.3 mmol/L (21-32); CREATININE SERUM 1.5 mg/dL (0.6-1.0)
[2019-07-29 21:40] LABS: POTASSIUM SERUM 5.9 mmol/L (3.5-5.1)
--- NOTE | 2019-07-29 22:10 | NUR ---
PT C/O LEFT ANKLE PAIN S/P MECHANICAL FALL TODAY. PT SMELLS OF ETOH BUT DENIES USE WHEN ASKED IF SHE HAS BEEN DIRNKING. PT IS AAOX4, SLURRED SPEECH, PT ABLE TO FOLLOW COMMANDS AND VERBALIZE NEEDS, NO DISTRESS NOTED, RESP E/U, SKIN INTACT PINK WARM AND DRY. PT ABLE HAS FULL ROM TO ALL EXTREMITIES, +PMSC. IMMOBLIZER IN PLACE TO LEFT ANKLE. PT GOWNED PLACED ON MONITOR. MSE COMPLETED. WILL CONT TO MONITOR. BED IN LOWEST POSITION, SIDERAIL X2 UP FOR SAFETY AND CALL BERNAL WITHIN REACH.
--- NOTE | 2019-07-29 22:10 | NUR ---
PT MOVED FROM [facility] TO ROOM 11 VIA [facility]
[2019-07-29 22:13] LABS: BASOPHIL % 0.8 % (0-2); PLATELET COUNT 231 x10^3mcL (130-400)
[2019-07-29 22:24] LABS: CHOLESTEROL/HDL RATIO 7.5; MAGNESIUM 1.8 mg/dL (1.8-2.4); PHOSPHOROUS 3.4 mg/dL (2.5-4.9)
--- NOTE | 2019-07-29 22:28 | NUR ---
CHUCK SPLITTER AT THE BEDSIDE
--- NOTE | 2019-07-29 23:14 | NUR ---
REPORT GIVEN TO USMAN ON TELE UNIT, WHO WILL ASSUME FURTHER CARE OF THIS PATIENT.
[2019-07-29 23:56] VITALS: BP 115/69
--- NOTE | 2019-07-30 00:08 | NUR ---
RECEIVED PT FROM ER, PT ADMIT FOR HYPONATREMIA, PT IS A/O X4, VERBAL RESPONSIVE, LUNG SOUND CLEAR BILATERAL, NO COUGH, NO SOB. PT IS ON TELE 11, NSR, DENY ANY CHEST PAIN OR DISCOMFORT, BOWEL SOUND PRESENT ALL 4 QUADRANTS, ON DISTENTION, NO TENDER. PT REFUSED LET NURSE TO TOUCH LEFT FOOT. DUE TO PAIN. NO EDEMA AT RIGHT FOOT. IV AT RIGHT AC, NO LEAKING, NO INFILTRATION. ALL ADLS ASSIST, ALL NEED MET, CALL LIGHT IN REACH, WILL CONTINUE TO MONITOR.
--- NOTE | 2019-07-30 00:36 | NUR ---
PT IS RESTING IN BED. STATING HER PAIN IS A 5/10 ON HER L ANKLE. PT REMOVED HER BRACE FROM ED STATING SHE DID'T WANT IT BECAUSE IT HURTS HER. PT REQUESTING MEDICATION. WHEN OFFERED HER NORCO PT REFUSED STATING SHE TAKES A NORCO 10. MD CANDELARIO WAS MADE AWARE AND WILL CHNAGE THE ORDER. PT MADE AWARE. URINE SAMPLE COLLECTED AND SENT TO THE LAB. WILL CONTINUE TO MONITOR PT.
[2019-07-30 00:55] LABS: microscopic required? NO
[2019-07-30 01:03] LABS: urine erythrocyte NEGATIVE (NEGATIVE)
[2019-07-30 04:50] VITALS: BP 118/66
--- NOTE | 2019-07-30 06:15 | NUR ---
PT IS RESTING IN BED. WITH BOTH EYES CLOSED. BREATHING EVEN AND UNALBORED. NO SIGN OF DISTRESS. NO SIGN OF DISTRESS NOTED. BED IS AT LOWEST SETTING. CALL LIGHT WITHIN REACH. WILL CONTINUE TO MONITOR.
[2019-07-30 06:17] LABS: BASOPHIL % 0.3 % (0-2); PLATELET COUNT 207 x10^3mcL (130-400)
--- NOTE | 2019-07-30 06:21 | NUR ---
WILL ENDORSE TO AM NURSE.
[2019-07-30 06:25] LABS: RED CELL DISTRIBUTION WIDTH 15.6 % (11.5-14.5)
[2019-07-30 06:29] LABS: CALCIUM 9.1 mg/dL (8.5-10.1); CARBON DIOXIDE 26.8 mmol/L (21-32); CREATININE SERUM 1.5 mg/dL (0.6-1.0); MAGNESIUM 1.8 mg/dL (1.8-2.4); PHOSPHOROUS 3.2 mg/dL (2.5-4.9)
[2019-07-30 06:33] LABS: POTASSIUM SERUM 6.4 mmol/L (3.5-5.1)
--- NOTE | 2019-07-30 07:30 | NUR ---
RECEIVED PATIENT IN BED, AWAKE, ALERT ABLE TO VERBALIZE NEEDS WELL. IVF INFUSING WELL TO RT A/C, SITE PATENT. TELE 11 NSR. RESP EVEN AND UNLABORED, LUNGS CLEAR ON ROOM AIR. PATIENT C/O LEFT FOOT PAIN 8/10 ON THE PAIN SCALE. WILL MEDICATE ORDERED. PATIENT HAS IMMOBILIZER AT BEDSIDE, BUT REFUSING TO HAVE ON. PATIENT REFUSED TO ALLOW NURSE TO TOUCH HER LEFT LEG OR FOOT. PER PATIENT SHE USES A WALKER AND HAS AN ELECTRIC W/C AT HOME. NO ACUTE DISTRESS NOTED.
[2019-07-30 07:57] VITALS: BP 119/71
[2019-07-30 08:42] LABS: FREE T4 0.23 ng/dL (0.76-1.46)
[2019-07-30 08:44] LABS: T3 TOTAL 0.25 ng/mL
[2019-07-30 08:46] LABS: FREE THYROXINE INDEX 0.2 ug/dL (1.4-4.5); T4(THYROXINE) 0.8 ug/dL (4.7-13.3)
--- NOTE | 2019-07-30 10:00 | NUR ---
RANDOM FSB DONE PATIENT WAS GIVEN REG INSULIN IV BY FREDY RN ORDRERED, AND 1 AMP D50 IV WELL. RANDOM FSBS WAS 140. WILL CONTINUE TO MONITOR. PATIENT SITTING UP TALKING ON PHONE AT THIS TIME. ALERT AND ORIENTED.
--- NOTE | 2019-07-30 11:30 | NUR ---
I HAVE REVIEWED THE DATA COLLECTION BY PRESTO LOG OPERATOR (NAME): ENTERED ON (DATE/TIME): I CONCUR WITH THE DATA AND ANY EXCEPTIONS OR COMMENTS ARE LISTED BELOW: PATIENT'S PLAN OF CARE WAS DISCUSSED AND REVIEWED WITH PRESTO LOG OPERATOR: JEWEL RIBEIRO
[2019-07-30 11:35] VITALS: BP 116/63
--- NOTE | 2019-07-30 12:00 | NUR ---
RANDOM FSBS AT THIS TIME WAS 122.
[2019-07-30 12:43] LABS: CARBON DIOXIDE 23.5 mmol/L (21-32); CREATININE SERUM 1.6 mg/dL (0.6-1.0)
[2019-07-30 12:47] LABS: POTASSIUM SERUM 7.2 mmol/L (3.5-5.1)
--- NOTE | 2019-07-30 12:49 | NUR ---
SPOKE WITH PHARMACY REGARDING DOSE FOR SOLU-CORTEF OF 100MG GIVEN AT 1200 AND A SECOND DOSE OF 50MG ORDERED FOR 1200 WAS HELD DO TO BEING TOO CLOSED TO ONE TIME DOSE PER PHARMACY OK AND THAT 50 MG HELD IT SHOULD NOT BE GIVNE SO CLOSE AND WILL SCHEDULE NEXT DOSE AFTER 1800. CONT TO MONITOR.
[2019-07-30 16:06] VITALS: BP 123/63
--- NOTE | 2019-07-30 17:48 | NUR ---
PATIENT SITTING UP IN BED EATING DINNER TRAY FAMILY MEMBER AT BEDSIDE. PATIENT C/O LEFT ANKLE AND GENERALIZED BODY PAIN 8/10 ON THE PAIN SCALE. MEDICATED WITH NORCO PO ORDERED. WILL MONITOR. FOR EFFECT. ARMATURE REWINDER AT BEDSIDE FOR 1800 LAB DRAW. NO ACUTE DISTRESS NOTED. WILL CONTINUE TO MONITOR. PATIENT HAS NOT HAD ANY BM'S THIS SHIFT.
[2019-07-30 18:24] LABS: CALCIUM 9.9 mg/dL (8.5-10.1); CARBON DIOXIDE 26.8 mmol/L (21-32); CREATININE SERUM 1.6 mg/dL (0.6-1.0); POTASSIUM SERUM 4.6 mmol/L (3.5-5.1)
--- NOTE | 2019-07-30 19:05 | NUR ---
CARE ASSUMED FROM OUTGOING COMMUNICATIONS ATTENDANT. PT RESTING COMFORTABLY IN BED. NO ACUTE DISTRESS NOTED. EVEN AND UNLABORED RESPIRATIONS ON RA. ON TELE# 11 READING SR 88. IV PATENT AND INTACT RUNNING FLUIDS PER EMAR. C/O PAIN TO LEFT ANKLE/HEEL, PAIN RESOLVING AFTER PAIN MEDICATIONS ADMINISTERED BY DAY SHIFT COMMUNICATIONS ATTENDANT. BED IN LOWEST POSITION. SIDE RAILS UPX2. CALL LIGHT WITHIN REACH. WILL CONTINUE TO MONITOR.
[2019-07-30 20:58] VITALS: BP 99/63
--- NOTE | 2019-07-31 01:00 | NUR ---
PT RESTING COMFORTABLY IN BED WITH EYES CLOSED. NO ACUTE DISTRESS NOTED. EVEN AND UNLABORED RESPIRATIONS ON RA. ON TELE# 11 READING SR 77. IVL PATENT AND INTACT, IVP MEDICATION GIVEN PER EMAR. BED IN LOWEST POSITION. SIDE RAILS UPX2. CALL LIGHT WITHIN REACH. WILL CONTINUE TO MONITOR.
[2019-07-31 04:16] VITALS: BP 101/63
[2019-07-31 06:05] LABS: BASOPHIL % 0.2 % (0-2); PLATELET COUNT 158 x10^3mcL (130-400)
[2019-07-31 06:11] LABS: CREATININE SERUM 1.4 mg/dL (0.6-1.0); PHOSPHOROUS 2.3 mg/dL (2.5-4.9); POTASSIUM SERUM 4.8 mmol/L (3.5-5.1); URIC ACID 5.8 mg/dL (2.6-6.0)
[2019-07-31 06:42] LABS: RED CELL DISTRIBUTION WIDTH 15.6 % (11.5-14.5)
--- NOTE | 2019-07-31 07:22 | NUR ---
PT SLEPT IN INTERVALS THROUGHOUT THE SHIFT. ALL NEEDS TENDED TO AND MET. C/O PAIN MEDICATED PER EMAR. BED IN LOWEST POSITION. SIDE RAILS UPX2. CALL LIGHT WITHIN REACH. WILL ENDORSE TO ONCOMING SHIFT.
--- NOTE | 2019-07-31 07:30 | NUR ---
PT ENDORSE TO ME THIS MORNING, LAYING IN BED RESTING. AA/O X4, BREATHING EVEN AND UNLABORED ON RA, NO ACUTE RESP DISTRESS OR SOB NOTED. TELE 11 SR NOTED HR 85, DENIES ANY CP OR PRESSURE NOTED. VOIDS FREELY. AMB WIHT WALKER AT HOME/ KNOWS TO CALL FOR ASSIST. IV TO THE RAC INTACT AND PATENT/ HEPLOCKED NO REDNESS OR SWELLING NOTED. CALL LIGHT IN REACH/ BED IN LOW POSITION. WILL CONTINUE TO MONITOR.
[2019-07-31 07:45] VITALS: BP 114/59
[2019-07-31 11:50] VITALS: BP 112/60
--- NOTE | 2019-07-31 14:25 | NUR ---
PT TOLERATED 100 % OF LUNCH, DENIES ANY N/V/ BY HER SIDE. WILL CONTINUE TO MONITOR.
[2019-07-31 16:04] VITALS: BP 104/55
--- NOTE | 2019-07-31 16:39 | NUR ---
PT ASKED IF WE CAN SPOT CK ACCU 202, DR LANIER AWARE/ PT STATED SHE JUST HAS A SNACK. WILL CONTINUE TO MONITOR
--- NOTE | 2019-07-31 16:59 | NUR ---
PHYSICAL THERAPY DAILY NOTES CO-SIGN All documentation done by the Morning Show Producer for 07/31/19 has been reviewed. I agree with the documentation. Reviewed/Co-Signed by: Letty Saucedo PT Documentation Done by:KUSHAL SETHI PHARMACY STUDENT POC REVIEWED W/ PHARMACY STUDENT
--- NOTE | 2019-07-31 17:37 | NUR ---
ASSISTED PT TO BEDPAN, TOTAL URINE OUTPUT 300ML CLEAR YELLOW URINE NOTED. WILL CONTINUE TO MONITOR.
--- NOTE | 2019-07-31 18:51 | NUR ---
NO ACUTE CHNAGES AT THIS TIME. NO ACUTE RESP DISTRESS OR SOB NOTED. TOLERATED 100% OF DINNER. DENIES ANY PAIN OR DISCOMFORT. NEW IV TO THE L HAND INTACT AND PATENT/ HEPLOCKED. WILL ENDORSE TO INCOMING RN.
--- NOTE | 2019-07-31 19:05 | NUR ---
CARE ASSUMED FROM OUTGOING RN. PT RESTING COMFORTABLY IN BED WITH EYES CLOSED. NO ACUTE DISTRESS NOTED. EVEN AND UNLABORED RESPIRATIONS ON RA. ON TELE# 11 READING SR 82. IVL INTACT. BED IN LOWEST POSITION. SIDE RAILS UPX2. CALL LIGHT WITHIN REACH. WILL CONTINUE TO MONITOR.
[2019-07-31 19:40] VITALS: BP 104/57
--- NOTE | 2019-08-01 00:40 | NUR ---
PT RESTING COMFORTABLY IN BED. NO ACUTE DISTRESS NOTED. EVEN AND UNLABORED RESPIRATIONS ON RA. IV PATENT AND INTACT, SOLU-CORTEF IVP GIVEN PER EMAR. PT TOLERATED WELL. WILL CONTINUE TO MONITOR.
[2019-08-01 04:13] VITALS: BP 111/61
--- NOTE | 2019-08-01 06:45 | NUR ---
PT SLEPT IN INTERVALS THROUGHOUT THE SHIFT. ALL NEEDS TENDED TO AND MET. C/O PAIN MEDICATED PER EMAR. ON TELE# 11 READING SR. BED IN LOWEST POSITION. SIDE RAILS UPX2. CALL LIGHT WITHIN REACH. WILL ENDORSE TO ONCOMING SHIFT.
[2019-08-01 06:56] LABS: CALCIUM 9.2 mg/dL (8.5-10.1); CARBON DIOXIDE 27.6 mmol/L (21-32); CREATININE SERUM 1.3 mg/dL (0.6-1.0); POTASSIUM SERUM 4.2 mmol/L (3.5-5.1)
--- NOTE | 2019-08-01 07:30 | NUR ---
PT ENDORSE TO ME THIS MORNING LAYING IN BED RESTING, AA/O X4 , BREATHING EVEN AND UNLABORD ON RA, NO ACUTE RESP DISTRESS OR SOB NOTED. TELE 11 SR NOTED, HR 68, DENIES ANY CP OR PRESSURE. VOIDS FREELY. AMB/ KNOWS TO CALL FOR ASSIST. IV TO THE L HAND INTACT AND PATENT/ HEPLOCKED, NO REDNESS OR SWELLING NOTED. CALL LIGHT IN REACH. BED IN LOW POSITION. WILL CONTINUE TO MONITOR.
[2019-08-01 08:37] VITALS: BP 94/53
--- NOTE | 2019-08-01 11:32 | NUR ---
PT C/O OF BACK AND HIP PAIN 03/27, MEDICATED PER EMAR. WILL CONTINUE TO MONITOR.
[2019-08-01 12:14] VITALS: BP 199/100
[2019-08-01 12:15] VITALS: BP 101/65
--- NOTE | 2019-08-01 13:34 | NUR ---
PT LAYING IN BED RESTING. TOLERATED 100 % OF LUNCH. STATED HER BACK PAIN IS MUCH BETTER. WILL CONTINUE TO MONITOR.
--- NOTE | 2019-08-01 14:20 | NUR ---
EXPLAINED DISCHARGE INSTRUCTION, CONTINUED MEDS AND FOLLOW UP APPT MUST MAKE WITH PRIMARY DOCTOR. PT AGREED AND SIGNED ALL DC DOCUMENTS. REMOVED IV TO L HAND/CATHETER TIP INTACT/ REMOVED TELE 11 AND RETURNED IT BACK TO TELE. PENDING DC HOME.
--- NOTE | 2019-08-01 14:22 | NUR ---
PT WAS PROVIDED WITH A PRE-PAID CAB VOUCHER, BLADE GAMBOA WHEELED PT DOWN TO FRONT OF HOSPITAL WHERE CAB IS AWAITING. PT DISCHARGE HOME. PT BREATHING EVEN AND UNLABORED ON RA, NO ACUTE RESP DISTRESS OR SOB NOTED. DENEIS ANY DISCOMFORT AT THIS TIME. DC HOME.
== END 2019-08-01 14:26 | disposition home or self-care (01) | DRG 351 ==
LOC: ED 19:14 → DU 21:56
PROVIDERS: Emergency Medicine; Internal Medicine; Internal Medicine Nephrology; ADMIT Internal Medicine
DX: S93.492A Sprain of other ligament of left ankle, initial encounter (principal); N17.0 Acute kidney failure with tubular necrosis; E22.2 Syndrome of inappropriate secretion of antidiuretic hormone; E27.2 Addisonian crisis; E87.5 Hyperkalemia; N18.3 Chronic kidney disease, stage 3 (moderate); E03.9 Hypothyroidism, unspecified; F41.8 Other specified anxiety disorders; X58.XXXA Exposure to other specified factors, initial encounter; Y93.01 Activity, walking, marching and hiking; Z68.26 Body mass index [BMI] 26.0-26.9, adult; Z88.2 Allergy status to sulfonamides; Z88.8 Allergy status to other drugs, medicaments and biological substances; Z91.018 Allergy to other foods; Y92.098 Other place in other non-institutional residence as the place of occurrence of the external cause; Y99.8 Other external cause status
CPT/HCPCS: 82962; 83880; 84439; 97110-GP; 97530-GP; G0378; J1720; J3490; J7030; Q0092

== ENCOUNTER 2019-09-12 11:39 | Inpatient (IN) | payer OTHER ==
[~2019-09-12] VITALS: Ht 160 cm; Wt 74.5 kg
[2019-09-12 11:49] VITALS: Ht 160 cm; Wt 74.5 kg
[2019-09-12 12:38] LABS: BASOPHIL % 1.5 % (0-2); PLATELET COUNT 158 x10^3mcL (130-400); RED CELL DISTRIBUTION WIDTH 14.2 % (11.5-14.5)
[2019-09-12 13:28] LABS: microscopic required? NO
[2019-09-12 13:41] LABS: urine erythrocyte NEGATIVE (NEGATIVE)
[2019-09-12 13:53] LABS: AMPHETAMINE QUAL UR NONE DETECTED (See below)
[2019-09-12 14:03] LABS: CARBON DIOXIDE 29 mmol/L (21-32); CHLORIDE SERUM 93 mmol/L (98-107); POTASSIUM SERUM 4.3 mmol/L (3.5-5.1); SODIUM SERUM 131 mmol/L (136-145)
[2019-09-12 14:04] LABS: ALBUMIN 3.9 g/dL (3.4-5.0); CALCIUM 9.9 mg/dL (8.5-10.1); CREATININE SERUM 1.9 mg/dL (0.6-1.0); GFR1 29 mL/min; GLUCOSE SERUM 103 mg/dL (74-106); TOTAL PROTEIN, SERUM 8.3 g/dL (6.4-8.2)
[2019-09-12 14:05] LABS: ALKALINE PHOSPHATASE 81 U/L (46-116); ALT/SGPT 34 U/L (14-59); AST/SGOT 71 U/L (15-37); BILIRUBIN TOTAL 0.8 mg/dL (0.20-1.00); LIPASE 326 IU/L (73-393); MAGNESIUM 1.3 mg/dL (1.8-2.4)
[2019-09-12 14:06] LABS: CHOLESTEROL 449 mg/dL (<200); T4(THYROXINE) 0.8 ug/dL (4.7-13.3)
[2019-09-12 15:22] VITALS: BP 106/79
[2019-09-12 19:58] VITALS: BP 98/58
[2019-09-13 04:28] VITALS: BP 102/55
[2019-09-13 08:00] LABS: RED CELL DISTRIBUTION WIDTH 14.2 % (11.5-14.5)
[2019-09-13 08:28] LABS: CALCIUM 9.1 mg/dL (8.5-10.1); CARBON DIOXIDE 27.2 mmol/L (21-32); CREATININE SERUM 1.7 mg/dL (0.6-1.0); POTASSIUM SERUM 5.4 mmol/L (3.5-5.1)
[2019-09-13 08:34] LABS: PLATELET COUNT 161 x10^3mcL (130-400)
[2019-09-13 08:40] VITALS: BP 101/66
[2019-09-13 09:41] LABS: BAND NEUTROPHIL 12 % (0-10); BASOPHIL 0 % (0-2); MONOCYTE 2 % (0-7); SEGMENTED NEUTROPHILS 72 % (37-75)
[2019-09-13 09:42] LABS: PLATELET MORPHOLOGY LARGE PLATELET SEEN; rbc morphology (normal/abnorm) NORMAL (NORMAL)
[2019-09-13 12:15] VITALS: BP 99/61
[2019-09-13 16:42] VITALS: BP 92/58
[2019-09-13 21:24] VITALS: BP 100/57
[2019-09-14 06:07] VITALS: BP 97/61
[2019-09-14 06:59] LABS: CALCIUM 9.1 mg/dL (8.5-10.1); CARBON DIOXIDE 27.3 mmol/L (21-32); CREATININE SERUM 1.5 mg/dL (0.6-1.0); POTASSIUM SERUM 4.3 mmol/L (3.5-5.1)
[2019-09-14 08:46] VITALS: BP 90/62
[2019-09-14 12:32] VITALS: BP 92/54
[2019-09-14 17:26] VITALS: BP 111/60
[2019-09-14 21:53] VITALS: BP 106/49; BP 136/70
[2019-09-15 06:34] VITALS: BP 107/64
[2019-09-15 07:30] LABS: BASOPHIL % 0.6 % (0-2); PLATELET COUNT 163 x10^3mcL (130-400); RED CELL DISTRIBUTION WIDTH 14.3 % (11.5-14.5)
[2019-09-15 08:13] LABS: CALCIUM 8.5 mg/dL (8.5-10.1); CARBON DIOXIDE 27.5 mmol/L (21-32); CREATININE SERUM 1.4 mg/dL (0.6-1.0); POTASSIUM SERUM 4.1 mmol/L (3.5-5.1)
[2019-09-15 08:43] VITALS: BP 107/60
[2019-09-15 12:41] VITALS: BP 107/60
[2019-09-15 12:43] VITALS: BP 120/57
== END 2019-09-15 13:03 | disposition home or self-care (01) | DRG 427 ==
LOC: ED 11:39 → MU 14:23
PROVIDERS: Emergency Medicine; Internal Medicine Nephrology; ADMIT Internal Medicine
DX: E03.9 Hypothyroidism, unspecified (principal); I95.9 Hypotension, unspecified; N17.9 Acute kidney failure, unspecified; E87.1 Hypo-osmolality and hyponatremia; M62.82 Rhabdomyolysis; N18.3 Chronic kidney disease, stage 3 (moderate); E27.1 Primary adrenocortical insufficiency; E83.42 Hypomagnesemia; F32.9 Major depressive disorder, single episode, unspecified; G89.4 Chronic pain syndrome; Z68.29 Body mass index [BMI] 29.0-29.9, adult; Z79.82 Long term (current) use of aspirin; Z88.4 Allergy status to anesthetic agent; Z88.2 Allergy status to sulfonamides; Z86.73 Personal history of transient ischemic attack (TIA), and cerebral infarction without residual deficits
CPT/HCPCS: 82962; 83880; 87804; 97110-GP; 97116-GP; 97530-GP; G0378; G0480; J1720; J3475; J7030; J7042

== ENCOUNTER 2019-11-30 15:27 | Emergency (ER) | payer OTHER ==
[~2019-11-30] VITALS: Ht 160 cm; Wt 65.8 kg
[2019-11-30 15:36] VITALS: Ht 160 cm; Wt 65.8 kg
[2019-11-30 16:00] LABS: BASOPHIL % 0.6 % (0-2); PLATELET COUNT 197 x10^3mcL (130-400)
[2019-11-30 16:01] LABS: RED CELL DISTRIBUTION WIDTH 14.7 % (11.5-14.5)
[2019-11-30 16:17] LABS: CALCIUM 10.1 mg/dL (8.5-10.1); CREATININE SERUM 1.7 mg/dL (0.6-1.0); POTASSIUM SERUM 4.4 mmol/L (3.5-5.1)
[2019-11-30 16:22] LABS: ALBUMIN 4.6 g/dL (3.4-5.0); BILIRUBIN TOTAL 0.9 mg/dL (0.20-1.00)
[2019-11-30 16:24] LABS: UA SPECIFIC GRAVITY 1.025 (1.005-1.035); microscopic required? YES; urine erythrocyte NEGATIVE (NEGATIVE)
[2019-11-30 16:25] LABS: TOTAL PROTEIN, SERUM 9.2 g/dL (6.4-8.2)
[2019-11-30 17:34] VITALS: BP 106/62
[2019-11-30 17:51] LABS: T4(THYROXINE) 0.7 ug/dL (4.7-13.3)
== END 2019-11-30 17:34 | disposition home or self-care (01) ==
LOC: ED 15:27
PROVIDERS: Emergency Medicine
DX: R53.1 Weakness (principal); N39.0 Urinary tract infection, site not specified; E87.1 Hypo-osmolality and hyponatremia; N18.9 Chronic kidney disease, unspecified; E03.9 Hypothyroidism, unspecified; E78.5 Hyperlipidemia, unspecified; Z88.2 Allergy status to sulfonamides; Z88.8 Allergy status to other drugs, medicaments and biological substances; Z88.1 Allergy status to other antibiotic agents; Z98.890 Other specified postprocedural states
CPT/HCPCS: J2405; J7030; Q0092

== ENCOUNTER 2020-03-10 09:18 | Inpatient (IN) | payer OTHER ==
[~2020-03-10] VITALS: Ht 157.5 cm; Wt 76.7 kg
[2020-03-10 09:22] VITALS: Ht 157.5 cm; Wt 76.7 kg
[2020-03-10 09:52] LABS: BASOPHIL % 1.3 % (0-2); PLATELET COUNT 174 x10^3mcL (130-400); RED CELL DISTRIBUTION WIDTH 14.6 % (11.5-14.5)
[2020-03-10 10:15] LABS: CALCIUM 10.8 mg/dL (8.5-10.1); CREATININE SERUM 1.9 mg/dL (0.6-1.0); POTASSIUM SERUM 4.5 mmol/L (3.5-5.1)
[2020-03-10 10:24] LABS: ALBUMIN 4.3 g/dL (3.4-5.0); BILIRUBIN TOTAL 0.81 mg/dL (0.20-1.00)
[2020-03-10 10:28] LABS: TOTAL PROTEIN, SERUM 8.6 g/dL (6.4-8.2)
[2020-03-10 13:33] LABS: microscopic required? NO
[2020-03-10 13:42] LABS: urine erythrocyte NEGATIVE (NEGATIVE)
[2020-03-10 13:51] LABS: MAGNESIUM 1.6 mg/dL (1.8-2.4)
[2020-03-10 13:59] LABS: FREE T4 0.28 ng/dL (0.76-1.46)
[2020-03-10 14:01] LABS: T3 TOTAL 0.05 ng/mL
[2020-03-10 15:10] LABS: FREE THYROXINE INDEX 0.1 ug/dL (1.4-4.5); T4(THYROXINE) < 0.5 ug/dL (4.7-13.3)
[2020-03-10 18:19] VITALS: BP 105/65
[2020-03-10 20:46] VITALS: BP 98/51
[2020-03-11 05:27] LABS: BASOPHIL % 0.4 % (0-2); PLATELET COUNT 140 x10^3mcL (130-400); RED CELL DISTRIBUTION WIDTH 14.3 % (11.5-14.5)
[2020-03-11 05:53] LABS: CALCIUM 9.1 mg/dL (8.5-10.1); CARBON DIOXIDE 28.8 mmol/L (21-32); POTASSIUM SERUM 4.6 mmol/L (3.5-5.1)
[2020-03-11 05:58] VITALS: BP 91/49
[2020-03-11 09:00] VITALS: BP 83/43
[2020-03-11 16:35] VITALS: BP 105/56
[2020-03-11 20:06] VITALS: BP 125/101
[2020-03-12 04:53] VITALS: BP 92/54
[2020-03-12 06:58] LABS: BASOPHIL % 0.7 % (0-2); PLATELET COUNT 130 x10^3mcL (130-400)
[2020-03-12 07:08] LABS: CALCIUM 8.6 mg/dL (8.5-10.1); CARBON DIOXIDE 29.4 mmol/L (21-32); CREATININE SERUM 1.7 mg/dL (0.6-1.0); MAGNESIUM 2.7 mg/dL (1.8-2.4); POTASSIUM SERUM 3.9 mmol/L (3.5-5.1)
[2020-03-12 08:04] VITALS: BP 108/56
[2020-03-12 12:08] VITALS: BP 99/59
[2020-03-12 16:20] VITALS: BP 96/39
[2020-03-12 20:06] VITALS: BP 84/39
[2020-03-13 05:20] VITALS: BP 89/41
[2020-03-13 07:17] LABS: CALCIUM 7.5 mg/dL (8.5-10.1); CREATININE SERUM 1.6 mg/dL (0.6-1.0); MAGNESIUM 2.1 mg/dL (1.8-2.4); POTASSIUM SERUM 4.2 mmol/L (3.5-5.1)
[2020-03-13 09:07] VITALS: BP 85/45
[2020-03-13 12:14] VITALS: BP 77/35
[2020-03-13 12:55] LABS: BASOPHIL % 1.1 % (0-2); PLATELET COUNT 139 x10^3mcL (130-400)
[2020-03-13 13:17] LABS: RED CELL DISTRIBUTION WIDTH 15.1 % (11.5-14.5)
[2020-03-13 17:08] VITALS: BP 77/37
[2020-03-13 17:50] VITALS: BP 108/51
[2020-03-13 21:21] VITALS: BP 92/45
[2020-03-14 05:14] VITALS: BP 92/42
[2020-03-14 06:48] LABS: BASOPHIL % 0.1 % (0-2); PLATELET COUNT 136 x10^3mcL (130-400)
[2020-03-14 07:02] LABS: CALCIUM 7.2 mg/dL (8.5-10.1); CARBON DIOXIDE 25.9 mmol/L (21-32); CREATININE SERUM 1.4 mg/dL (0.6-1.0); POTASSIUM SERUM 3.8 mmol/L (3.5-5.1)
[2020-03-14 08:22] VITALS: BP 85/43
[2020-03-14 12:30] VITALS: BP 87/55
[2020-03-14 16:51] VITALS: BP 87/41
[2020-03-14 20:19] VITALS: BP 101/54
[2020-03-15 05:19] VITALS: BP 95/58
[2020-03-15 07:05] LABS: CARBON DIOXIDE 23.3 mmol/L (21-32); POTASSIUM SERUM 3.5 mmol/L (3.5-5.1)
[2020-03-15 07:11] LABS: CALCIUM 6.9 mg/dL (8.5-10.1); CREATININE SERUM 1.3 mg/dL (0.6-1.0)
[2020-03-15 07:44] LABS: PLATELET COUNT 182 x10^3mcL (130-400)
[2020-03-15 08:09] LABS: BASOPHIL % 0 % (0-2); RED CELL DISTRIBUTION WIDTH 15.4 % (11.5-14.5)
[2020-03-15 08:39] VITALS: BP 98/56
[2020-03-15 12:22] VITALS: BP 101/60
[2020-03-15 16:56] VITALS: BP 100/55
[2020-03-15 20:27] VITALS: BP 119/61
[2020-03-16 05:06] VITALS: BP 114/66
[2020-03-16 07:39] VITALS: BP 121/62
[2020-03-16 12:26] VITALS: BP 123/72
[2020-03-16 14:32] LABS: CALCIUM 6.7 mg/dL (8.5-10.1); CREATININE SERUM 1.4 mg/dL (0.6-1.0); MAGNESIUM 1.6 mg/dL (1.8-2.4); PHOSPHOROUS 1.7 mg/dL (2.5-4.9)
[2020-03-16 15:19] LABS: BASOPHIL % 0.4 % (0-2); PLATELET COUNT 200 x10^3mcL (130-400); RED CELL DISTRIBUTION WIDTH 14.4 % (11.5-14.5)
[2020-03-16 16:10] VITALS: BP 116/69
[2020-03-16 19:20] VITALS: BP 116/62
[2020-03-17 04:43] VITALS: BP 97/62
[2020-03-17 07:39] LABS: BASOPHIL % 0.1 % (0-2); PLATELET COUNT 177 x10^3mcL (130-400); RED CELL DISTRIBUTION WIDTH 14.5 % (11.5-14.5)
[2020-03-17 07:42] LABS: CALCIUM 6.7 mg/dL (8.5-10.1); CARBON DIOXIDE 27.3 mmol/L (21-32); CREATININE SERUM 1.3 mg/dL (0.6-1.0); MAGNESIUM 2.7 mg/dL (1.8-2.4); PHOSPHOROUS 2.3 mg/dL (2.5-4.9); POTASSIUM SERUM 3.3 mmol/L (3.5-5.1)
[2020-03-17 09:12] VITALS: BP 134/74
[2020-03-17 13:30] VITALS: BP 112/63
[2020-03-17 17:38] VITALS: BP 101/55
[2020-03-17 23:04] VITALS: BP 116/61
[2020-03-18 05:32] VITALS: BP 121/72
[2020-03-18 07:02] LABS: BASOPHIL % 0.3 % (0-2); PLATELET COUNT 160 x10^3mcL (130-400)
[2020-03-18 07:11] LABS: RED CELL DISTRIBUTION WIDTH 15.6 % (11.5-14.5)
[2020-03-18 07:17] LABS: CALCIUM 6.4 mg/dL (8.5-10.1); CARBON DIOXIDE 30.9 mmol/L (21-32); CREATININE SERUM 1.2 mg/dL (0.6-1.0); MAGNESIUM 1.9 mg/dL (1.8-2.4); PHOSPHOROUS 1.9 mg/dL (2.5-4.9)
[2020-03-18 07:22] LABS: POTASSIUM SERUM 2.7 mmol/L (3.5-5.1)
[2020-03-18 09:22] VITALS: BP 112/55
[2020-03-18 13:44] VITALS: BP 112/58
[2020-03-18 17:35] VITALS: BP 108/67
[2020-03-18 17:48] LABS: CARBON DIOXIDE 30.7 mmol/L (21-32); CREATININE SERUM 1.2 mg/dL (0.6-1.0); POTASSIUM SERUM 3.5 mmol/L (3.5-5.1)
[2020-03-18 20:33] VITALS: BP 108/54
[2020-03-19 06:00] VITALS: BP 123/68
[2020-03-19 08:08] VITALS: BP 133/69
[2020-03-19 09:12] LABS: BASOPHIL % 0.2 % (0-2); PLATELET COUNT 166 x10^3mcL (130-400)
[2020-03-19 09:13] LABS: CALCIUM 7.2 mg/dL (8.5-10.1); CARBON DIOXIDE 34.2 mmol/L (21-32); CREATININE SERUM 1.2 mg/dL (0.6-1.0); MAGNESIUM 2.6 mg/dL (1.8-2.4); PHOSPHOROUS 2.3 mg/dL (2.5-4.9); POTASSIUM SERUM 3.1 mmol/L (3.5-5.1)
[2020-03-19 10:14] LABS: RED CELL DISTRIBUTION WIDTH 15.4 % (11.5-14.5)
[2020-03-19 12:34] VITALS: BP 130/68
[2020-03-19 14:09] VITALS: BP 128/63
== END 2020-03-19 15:34 | disposition home or self-care (01) | DRG 351 ==
LOC: ED 09:18 → MU 12:57 → DU 12:57 → MU 17:01 → DU 03-11 02:14
PROVIDERS: Emergency Medicine; Internal Medicine; Student in an Organized Health Care Education/Training Program; ADMIT Internal Medicine; ATTEND Internal Medicine
PROC: 02HV33Z Insertion of Infusion Device into Superior Vena Cava, Percutaneous Approach (ICD-10-PCS; principal; 2020-03-16)
PROC: B548ZZA Ultrasonography of Superior Vena Cava, Guidance (ICD-10-PCS; 2020-03-16)
DX: M62.82 Rhabdomyolysis (principal); N17.9 Acute kidney failure, unspecified; E27.1 Primary adrenocortical insufficiency; E83.42 Hypomagnesemia; E87.1 Hypo-osmolality and hyponatremia; E03.9 Hypothyroidism, unspecified; F32.9 Major depressive disorder, single episode, unspecified; F41.9 Anxiety disorder, unspecified; E78.00 Pure hypercholesterolemia, unspecified; E86.0 Dehydration; E78.5 Hyperlipidemia, unspecified; G89.29 Other chronic pain; N18.1 Chronic kidney disease, stage 1; Z88.2 Allergy status to sulfonamides; Z88.8 Allergy status to other drugs, medicaments and biological substances; Z79.899 Other long term (current) drug therapy
CPT/HCPCS: 83880; 84439; 97112-GP; 97116-GP; 97530-GP; G0378; J1720; J1940; J2270; J2405; J3475; J3480; J7030; Q0092; Q0163

== ENCOUNTER 2020-03-20 12:28 | Emergency (ER) | payer OTHER ==
[~2020-03-20] VITALS: Ht 154.9 cm; Wt 68.0 kg
[2020-03-20 12:28] VITALS: Ht 154.9 cm; Wt 68.0 kg
[2020-03-20 16:07] VITALS: BP 125/87
== END 2020-03-20 16:07 | disposition home or self-care (01) ==
LOC: ED 12:28
DX: K74.60 Unspecified cirrhosis of liver (principal); M54.9 Dorsalgia, unspecified; G89.29 Other chronic pain; E03.9 Hypothyroidism, unspecified; Z88.2 Allergy status to sulfonamides; Z88.8 Allergy status to other drugs, medicaments and biological substances; Z98.890 Other specified postprocedural states

== ENCOUNTER 2020-04-04 14:25 | Inpatient (IN) | payer OTHER ==
[~2020-04-04] VITALS: Ht 170.2 cm; Wt 70.4 kg
[~2020-04-04 14:25] MED LIST changes: -HYDROCORTISONE5 MG PO
[2020-04-04 14:42] VITALS: Ht 170.2 cm; Wt 70.4 kg
[2020-04-04 15:04] LABS: BASOPHIL % 0.8 % (0-2); PLATELET COUNT 272 x10^3mcL (130-400); RED CELL DISTRIBUTION WIDTH 14.1 % (11.5-14.5)
[2020-04-04 15:38] LABS: ALBUMIN 4.3 g/dL (3.4-5.0); BILIRUBIN DIRECT 0.25 mg/dL (0.0-0.2); BILIRUBIN TOTAL 1.19 mg/dL (0.20-1.00); CALCIUM 9.9 mg/dL (8.5-10.1); CARBON DIOXIDE 27.4 mmol/L (21-32); CREATININE SERUM 1.5 mg/dL (0.6-1.0); FREE T4 1.58 ng/dL (0.76-1.46); POTASSIUM SERUM 4.7 mmol/L (3.5-5.1)
[2020-04-04 15:41] LABS: TOTAL PROTEIN, SERUM 8.8 g/dL (6.4-8.2)
[2020-04-04] MEDS ORDERED: LASIX40 MG PO (16:17)
[2020-04-04 20:01] LABS: MAGNESIUM 1.7 mg/dL (1.8-2.4); PHOSPHOROUS 4.6 mg/dL (2.5-4.9)
[2020-04-04 20:10] LABS: T3 TOTAL 1.27 ng/mL
[2020-04-04 20:11] LABS: FREE T4 1.56 ng/dL (0.76-1.46)
[2020-04-04 20:13] LABS: FREE THYROXINE INDEX 4.9 ug/dL (1.4-4.5); T4(THYROXINE) 13.6 ug/dL (4.7-13.3)
[2020-04-04 20:30] VITALS: BP 128/68
[2020-04-05 06:00] VITALS: BP 110/63
[2020-04-05 07:15] LABS: BASOPHIL % 1.3 % (0-2); PLATELET COUNT 273 x10^3mcL (130-400); RED CELL DISTRIBUTION WIDTH 13.7 % (11.5-14.5)
[2020-04-05 07:41] LABS: BILIRUBIN TOTAL 1.3 mg/dL (0.20-1.00)
[2020-04-05 07:46] LABS: CALCIUM 11.2 mg/dL (8.5-10.1); CARBON DIOXIDE 25.3 mmol/L (21-32); CREATININE SERUM 1.5 mg/dL (0.6-1.0); POTASSIUM SERUM 4.6 mmol/L (3.5-5.1)
[2020-04-05 09:02] VITALS: BP 116/67
[2020-04-05 12:55] LABS: CALCIUM 11.6 mg/dL (8.5-10.1); CREATININE SERUM 1.4 mg/dL (0.6-1.0)
[2020-04-05 13:34] VITALS: BP 118/70
[2020-04-05 17:40] VITALS: BP 98/45
[2020-04-05 20:45] VITALS: BP 99/52
[2020-04-06 00:55] LABS: CALCIUM 9.9 mg/dL (8.5-10.1); CARBON DIOXIDE 28.3 mmol/L (21-32); CREATININE SERUM 1.6 mg/dL (0.6-1.0); POTASSIUM SERUM 4.8 mmol/L (3.5-5.1)
[2020-04-06 06:07] VITALS: BP 90/38
[2020-04-06 06:34] LABS: PLATELET COUNT 238 x10^3mcL (130-400); RED CELL DISTRIBUTION WIDTH 13.7 % (11.5-14.5)
[2020-04-06 06:36] VITALS: BP 130/51
[2020-04-06 06:59] LABS: CALCIUM 10.4 mg/dL (8.5-10.1); CARBON DIOXIDE 33.2 mmol/L (21-32); CREATININE SERUM 1.4 mg/dL (0.6-1.0); MAGNESIUM 1.7 mg/dL (1.8-2.4); PHOSPHOROUS 5.1 mg/dL (2.5-4.9); POTASSIUM SERUM 4.8 mmol/L (3.5-5.1)
[2020-04-06 07:51] VITALS: BP 141/63
[2020-04-06 08:00] LABS: CHOLESTEROL/HDL RATIO 5.2
[2020-04-06 10:37] LABS: CALCIUM 10.5 mg/dL (8.5-10.1); CARBON DIOXIDE 34.8 mmol/L (21-32); CREATININE SERUM 1.4 mg/dL (0.6-1.0); POTASSIUM SERUM 4.4 mmol/L (3.5-5.1)
[2020-04-06 15:29] LABS: CALCIUM 11.6 mg/dL (8.5-10.1); CREATININE SERUM 1.5 mg/dL (0.6-1.0); POTASSIUM SERUM 5.1 mmol/L (3.5-5.1)
[2020-04-06 17:06] VITALS: BP 121/71
[2020-04-06 19:14] LABS: CARBON DIOXIDE 28.7 mmol/L (21-32); CREATININE SERUM 1.6 mg/dL (0.6-1.0); POTASSIUM SERUM 4.7 mmol/L (3.5-5.1)
[2020-04-06 20:17] VITALS: BP 105/54
[2020-04-07 05:03] VITALS: BP 116/64
[2020-04-07 06:26] LABS: BASOPHIL % 0.7 % (0-2); PLATELET COUNT 240 x10^3mcL (130-400); RED CELL DISTRIBUTION WIDTH 13.9 % (11.5-14.5)
[2020-04-07 06:35] LABS: CALCIUM 10.4 mg/dL (8.5-10.1); CARBON DIOXIDE 25.4 mmol/L (21-32); CREATININE SERUM 1.5 mg/dL (0.6-1.0); MAGNESIUM 1.6 mg/dL (1.8-2.4); PHOSPHOROUS 5.3 mg/dL (2.5-4.9); POTASSIUM SERUM 4.5 mmol/L (3.5-5.1)
[2020-04-07 08:01] VITALS: BP 106/59
[2020-04-07 11:31] VITALS: BP 110/60
[2020-04-07 15:41] VITALS: BP 105/62
[2020-04-07] MEDS ORDERED: COR10 PO (15:44)
[2020-04-07] MEDS ORDERED: HYDROCORTISONE5 MG PO (15:55)
== END 2020-04-07 16:14 | disposition home or self-care (01) | DRG 351 ==
LOC: ED 14:25 → DU 16:33
PROVIDERS: Student in an Organized Health Care Education/Training Program; ADMIT Student in an Organized Health Care Education/Training Program; ATTEND Student in an Organized Health Care Education/Training Program
DX: M62.82 Rhabdomyolysis (principal); N17.0 Acute kidney failure with tubular necrosis; E87.1 Hypo-osmolality and hyponatremia; E03.9 Hypothyroidism, unspecified; F41.9 Anxiety disorder, unspecified; E78.00 Pure hypercholesterolemia, unspecified; G89.29 Other chronic pain; N18.3 Chronic kidney disease, stage 3 (moderate); E83.52 Hypercalcemia; M54.9 Dorsalgia, unspecified; F32.9 Major depressive disorder, single episode, unspecified; R74.0 Nonspecific elevation of levels of transaminase and lactic acid dehydrogenase [LDH]; E86.0 Dehydration; Z88.8 Allergy status to other drugs, medicaments and biological substances; Z88.2 Allergy status to sulfonamides; Z79.899 Other long term (current) drug therapy
CPT/HCPCS: 84439; G0378; J7030; Q0092

== ENCOUNTER 2020-04-16 15:27 | Inpatient (IN) | payer OTHER ==
[~2020-04-16] VITALS: Ht 160 cm; Wt 63.5 kg
[~2020-04-16 15:27] MED LIST changes: +COR10 PO; +HYDROCORTISONE5 MG PO; +LASIX40 MG PO
[2020-04-16 15:45] VITALS: Ht 160 cm; Wt 63.5 kg
[2020-04-16 16:33] LABS: microscopic required? NO
[2020-04-16 16:50] LABS: UA SPECIFIC GRAVITY 1.015 (1.005-1.035); urine erythrocyte NEGATIVE (NEGATIVE)
[2020-04-16 16:58] LABS: BASOPHIL % 1.3 % (0-2); PLATELET COUNT 338 x10^3mcL (130-400); RED CELL DISTRIBUTION WIDTH 13.7 % (11.5-14.5)
[2020-04-16 18:04] LABS: ALBUMIN 4.5 g/dL (3.4-5.0); BILIRUBIN TOTAL 0.6 mg/dL (0.20-1.00); CALCIUM 9.6 mg/dL (8.5-10.1); CARBON DIOXIDE 25.2 mmol/L (21-32); CREATININE SERUM 1.6 mg/dL (0.6-1.0); MAGNESIUM 2.3 mg/dL (1.8-2.4); PHOSPHOROUS 2.3 mg/dL (2.5-4.9)
[2020-04-16 18:05] LABS: TOTAL PROTEIN, SERUM 9.1 g/dL (6.4-8.2)
[2020-04-16 18:07] LABS: POTASSIUM SERUM 6.8 mmol/L (3.5-5.1)
[2020-04-16] MEDS ORDERED: LEVOTHYROXIN0.175 MG PO (19:22)
[2020-04-16 21:31] LABS: CHOLESTEROL/HDL RATIO 2.8
[2020-04-16 21:40] LABS: T3 TOTAL 1.46 ng/mL
[2020-04-16 21:48] LABS: FREE T4 2.7 ng/dL (0.76-1.46); FREE THYROXINE INDEX 7.9 ug/dL (1.4-4.5); T4(THYROXINE) 17.9 ug/dL (4.7-13.3)
[2020-04-16 23:05] VITALS: BP 125/77
[2020-04-17 05:08] VITALS: BP 101/50
[2020-04-17 06:54] LABS: CALCIUM 8.7 mg/dL (8.5-10.1); CARBON DIOXIDE 23.9 mmol/L (21-32); CREATININE SERUM 1.4 mg/dL (0.6-1.0); POTASSIUM SERUM 5.3 mmol/L (3.5-5.1)
[2020-04-17 08:43] LABS: CALCIUM 9.1 mg/dL (8.5-10.1); CARBON DIOXIDE 23.6 mmol/L (21-32); CREATININE SERUM 1.5 mg/dL (0.6-1.0); POTASSIUM SERUM 5.4 mmol/L (3.5-5.1)
[2020-04-17 08:44] VITALS: BP 98/35
[2020-04-17 08:51] LABS: PHOSPHOROUS 3.5 mg/dL (2.5-4.9)
[2020-04-17 12:50] VITALS: BP 96/44
[2020-04-17 13:44] LABS: BASOPHIL % 0.2 % (0-2); PLATELET COUNT 256 x10^3mcL (130-400); RED CELL DISTRIBUTION WIDTH 13.9 % (11.5-14.5)
[2020-04-17 15:18] LABS: CALCIUM 9.5 mg/dL (8.5-10.1); CARBON DIOXIDE 26.1 mmol/L (21-32); CREATININE SERUM 1.4 mg/dL (0.6-1.0); POTASSIUM SERUM 5.5 mmol/L (3.5-5.1)
[2020-04-17 15:31] LABS: CALCIUM 9.2 mg/dL (8.5-10.1); CARBON DIOXIDE 22.8 mmol/L (21-32); CREATININE SERUM 1.3 mg/dL (0.6-1.0); POTASSIUM SERUM 4.9 mmol/L (3.5-5.1)
[2020-04-17 17:01] VITALS: BP 100/55
[2020-04-17 19:56] VITALS: BP 80/44
[2020-04-17 20:28] VITALS: BP 95/44
[2020-04-17 20:59] LABS: CARBON DIOXIDE 27.6 mmol/L (21-32); CREATININE SERUM 1.5 mg/dL (0.6-1.0); POTASSIUM SERUM 5.2 mmol/L (3.5-5.1)
[2020-04-17 21:19] LABS: CALCIUM 9.4 mg/dL (8.5-10.1)
[2020-04-18 02:05] LABS: CALCIUM 9.3 mg/dL (8.5-10.1); CARBON DIOXIDE 27.1 mmol/L (21-32); CREATININE SERUM 1.2 mg/dL (0.6-1.0); POTASSIUM SERUM 4.7 mmol/L (3.5-5.1)
[2020-04-18 05:31] VITALS: BP 89/46
[2020-04-18 07:01] VITALS: BP 99/55
[2020-04-18 07:12] LABS: BASOPHIL % 0.5 % (0-2); PLATELET COUNT 205 x10^3mcL (130-400)
[2020-04-18 07:51] LABS: CALCIUM 9.3 mg/dL (8.5-10.1); CARBON DIOXIDE 25.2 mmol/L (21-32); CREATININE SERUM 1.3 mg/dL (0.6-1.0); MAGNESIUM 1.8 mg/dL (1.8-2.4); PHOSPHOROUS 3.9 mg/dL (2.5-4.9); POTASSIUM SERUM 5.2 mmol/L (3.5-5.1)
[2020-04-18 07:52] LABS: ALBUMIN 3.3 g/dL (3.4-5.0)
[2020-04-18 08:31] VITALS: BP 93/48
[2020-04-18 12:28] LABS: CALCIUM 9.2 mg/dL (8.5-10.1); CARBON DIOXIDE 29.8 mmol/L (21-32); CREATININE SERUM 1.2 mg/dL (0.6-1.0); POTASSIUM SERUM 4.8 mmol/L (3.5-5.1)
[2020-04-18 12:52] VITALS: BP 100/51
[2020-04-18 16:31] VITALS: BP 99/56
[2020-04-18 16:37] LABS: CALCIUM 9.3 mg/dL (8.5-10.1); CARBON DIOXIDE 23.7 mmol/L (21-32); CREATININE SERUM 1.2 mg/dL (0.6-1.0); POTASSIUM SERUM 4.8 mmol/L (3.5-5.1)
[2020-04-18 20:52] LABS: CALCIUM 9.5 mg/dL (8.5-10.1); CARBON DIOXIDE 24.1 mmol/L (21-32); CREATININE SERUM 1.3 mg/dL (0.6-1.0)
[2020-04-18 22:00] VITALS: BP 87/41
[2020-04-19 01:39] LABS: BASOPHIL % 1.1 % (0-2); PLATELET COUNT 161 x10^3mcL (130-400); RED CELL DISTRIBUTION WIDTH 14.3 % (11.5-14.5)
[2020-04-19 02:03] LABS: CALCIUM 8.7 mg/dL (8.5-10.1); CARBON DIOXIDE 24.5 mmol/L (21-32); CREATININE SERUM 1.4 mg/dL (0.6-1.0); POTASSIUM SERUM 4.5 mmol/L (3.5-5.1)
[2020-04-19 05:08] VITALS: BP 93/51
[2020-04-19 07:38] LABS: CALCIUM 9.1 mg/dL (8.5-10.1); CARBON DIOXIDE 27.4 mmol/L (21-32); CREATININE SERUM 1.2 mg/dL (0.6-1.0); POTASSIUM SERUM 4.5 mmol/L (3.5-5.1)
[2020-04-19] MEDS ORDERED: COR10 PO (08:46)
[2020-04-19] MEDS ORDERED: SYN125 PO (08:46)
[2020-04-19] MEDS ORDERED: BAY PO (08:46)
[2020-04-19 09:15] VITALS: BP 97/37
[2020-04-19 09:37] LABS: CARBON DIOXIDE 25.3 mmol/L (21-32); CREATININE SERUM 1.2 mg/dL (0.6-1.0); POTASSIUM SERUM 4.2 mmol/L (3.5-5.1)
[2020-04-19 11:43] VITALS: BP 94/37
[2020-04-19 12:25] VITALS: BP 94/37
[2020-04-19 12:26] LABS: CALCIUM 8.8 mg/dL (8.5-10.1); CARBON DIOXIDE 27.6 mmol/L (21-32); CREATININE SERUM 1.1 mg/dL (0.6-1.0); POTASSIUM SERUM 4.1 mmol/L (3.5-5.1)
== END 2020-04-19 13:35 | disposition home or self-care (01) | DRG 424 ==
LOC: ED 15:27 → DU 18:37
PROVIDERS: Emergency Medicine; Internal Medicine; ADMIT Internal Medicine; ATTEND Internal Medicine
DX: E27.2 Addisonian crisis (principal); N17.0 Acute kidney failure with tubular necrosis; E03.9 Hypothyroidism, unspecified; F32.9 Major depressive disorder, single episode, unspecified; F41.9 Anxiety disorder, unspecified; E78.00 Pure hypercholesterolemia, unspecified; G89.29 Other chronic pain; E87.1 Hypo-osmolality and hyponatremia; E87.5 Hyperkalemia; D72.829 Elevated white blood cell count, unspecified; R74.0 Nonspecific elevation of levels of transaminase and lactic acid dehydrogenase [LDH]; E87.8 Other disorders of electrolyte and fluid balance, not elsewhere classified; N18.3 Chronic kidney disease, stage 3 (moderate); E83.52 Hypercalcemia; Z88.8 Allergy status to other drugs, medicaments and biological substances; Z88.2 Allergy status to sulfonamides; Z79.899 Other long term (current) drug therapy
CPT/HCPCS: 83880; 84439; G0378; J0610; J1720; J1815; J2405; J3490; J7030

== ENCOUNTER 2020-07-08 09:44 | Inpatient (IN) | payer OTHER ==
[~2020-07-08] VITALS: Ht 157.5 cm; Wt 66.7 kg
[~2020-07-08 09:44] MED LIST changes: +BAY PO; +LEVOTHYROXIN0.175 MG PO
[2020-07-08 09:53] VITALS: Ht 157.5 cm; Wt 66.7 kg
[2020-07-08 11:12] LABS: BASOPHIL % 0.9 % (0-2); PLATELET COUNT 284 x10^3mcL (130-400)
[2020-07-08 11:38] LABS: CALCIUM 10.1 mg/dL (8.5-10.1); CARBON DIOXIDE 26.5 mmol/L (21-32); CREATININE SERUM 1.2 mg/dL (0.6-1.0); POTASSIUM SERUM 4.5 mmol/L (3.5-5.1)
[2020-07-08 11:43] LABS: BILIRUBIN TOTAL 0.9 mg/dL (0.20-1.00); TOTAL PROTEIN, SERUM 7.7 g/dL (6.4-8.2)
[2020-07-08 12:09] LABS: ALBUMIN 3.3 g/dL (3.4-5.0)
[2020-07-08 12:33] LABS: microscopic required? NO
[2020-07-08 12:41] LABS: urine erythrocyte NEGATIVE (NEGATIVE)
[2020-07-08] MEDS ORDERED: SYN15 PO (13:02)
[2020-07-08] MEDS ORDERED: HYDROCORTISONE10 M1 PO (13:03)
[2020-07-08] MEDS ORDERED: NORCO 10-325 T1 EACH PO (13:04)
[2020-07-08] MEDS ORDERED: VAL10 PO (13:04)
[2020-07-08 15:00] VITALS: BP 91/58
[2020-07-08 15:44] LABS: AMPHETAMINE QUAL UR NONE DETECTED (See below)
[2020-07-08 16:23] VITALS: BP 100/55
[2020-07-08 18:37] LABS: CALCIUM 8.7 mg/dL (8.5-10.1); CARBON DIOXIDE 24.5 mmol/L (21-32); CREATININE SERUM 1.1 mg/dL (0.6-1.0); POTASSIUM SERUM 4.7 mmol/L (3.5-5.1)
[2020-07-08 20:37] VITALS: BP 96/47
[2020-07-08 23:11] VITALS: BP 82/51
[2020-07-09 06:03] VITALS: BP 91/41
[2020-07-09 06:52] VITALS: BP 96/49
[2020-07-09 06:53] LABS: PLATELET COUNT 212 x10^3mcL (130-400); RED CELL DISTRIBUTION WIDTH 14.1 % (11.5-14.5)
[2020-07-09 07:16] LABS: CALCIUM 8.5 mg/dL (8.5-10.1); CARBON DIOXIDE 22.6 mmol/L (21-32); CREATININE SERUM 1.7 mg/dL (0.6-1.0); MAGNESIUM 1.4 mg/dL (1.8-2.4); PHOSPHOROUS 5.4 mg/dL (2.5-4.9); POTASSIUM SERUM 4.4 mmol/L (3.5-5.1)
[2020-07-09 08:46] VITALS: BP 93/54
[2020-07-09 13:06] VITALS: BP 98/39
[2020-07-09 18:45] VITALS: BP 101/48
[2020-07-09 21:23] VITALS: BP 99/84
[2020-07-10 06:07] VITALS: BP 97/41
[2020-07-10 07:10] LABS: BASOPHIL % 0.9 % (0-2); PLATELET COUNT 214 x10^3mcL (130-400); RED CELL DISTRIBUTION WIDTH 14.3 % (11.5-14.5)
[2020-07-10 07:27] LABS: CALCIUM 8.8 mg/dL (8.5-10.1); CREATININE SERUM 1.5 mg/dL (0.6-1.0); MAGNESIUM 1.6 mg/dL (1.8-2.4); PHOSPHOROUS 4.3 mg/dL (2.5-4.9); POTASSIUM SERUM 4.8 mmol/L (3.5-5.1)
[2020-07-10 08:20] VITALS: BP 84/45
[2020-07-10 11:48] VITALS: BP 96/51
[2020-07-10 16:33] VITALS: BP 85/60
[2020-07-10 21:02] VITALS: BP 147/55
[2020-07-11 06:01] VITALS: BP 95/54
[2020-07-11 07:24] LABS: BASOPHIL % 0.8 % (0-2); PLATELET COUNT 210 x10^3mcL (130-400); RED CELL DISTRIBUTION WIDTH 14.3 % (11.5-14.5)
[2020-07-11 07:45] LABS: CALCIUM 9.4 mg/dL (8.5-10.1); CARBON DIOXIDE 22.6 mmol/L (21-32); CREATININE SERUM 1.2 mg/dL (0.6-1.0); MAGNESIUM 1.5 mg/dL (1.8-2.4); PHOSPHOROUS 3.3 mg/dL (2.5-4.9); POTASSIUM SERUM 4.9 mmol/L (3.5-5.1)
[2020-07-11 07:49] VITALS: BP 127/90
[2020-07-11 11:29] VITALS: BP 99/60
[2020-07-11] MEDS ORDERED: AUGMENTIN 875-1 EACH PO (12:41)
[2020-07-11 15:36] VITALS: BP 103/56
== END 2020-07-11 18:15 | disposition home or self-care (01) | DRG 385 ==
LOC: ED 09:44 → DU 12:50
PROVIDERS: Emergency Medicine; ADMIT Family Medicine; ATTEND Family Medicine
DX: N61.0 Mastitis without abscess (principal); N17.0 Acute kidney failure with tubular necrosis; E27.1 Primary adrenocortical insufficiency; E87.1 Hypo-osmolality and hyponatremia; E03.9 Hypothyroidism, unspecified; F32.9 Major depressive disorder, single episode, unspecified; G89.29 Other chronic pain; M54.9 Dorsalgia, unspecified; E83.42 Hypomagnesemia; E86.0 Dehydration; F41.9 Anxiety disorder, unspecified; Z88.2 Allergy status to sulfonamides; Z88.8 Allergy status to other drugs, medicaments and biological substances; Z79.82 Long term (current) use of aspirin; Z20.828 Contact with and (suspected) exposure to other viral communicable diseases
CPT/HCPCS: 97116-GP; 97530-GP; G0378; J1885; J2060; J2270; J2405; J2543; J3370; J3490; J7030